=== PATIENT | male | born 1980 | race Caucasian/White ===

== ENCOUNTER 2022-08-28 15:43 | Outpatient (OUT) | payer MEDICARE, MEDICAID, SELFPAY ==
[2022-08-28 16:25] LABS: Estimated Average Glucose 126 mg/dL
== END 2022-08-28 15:44 ==
LOC: LAB 15:47
PROVIDERS: PCP Specialist; Visit Provider Specialist
DX: E11.9 Type 2 diabetes mellitus without complications (principal)
CPT/HCPCS: 36415; 83036

== ENCOUNTER 2022-11-30 08:45 | Outpatient (OUT) | payer MEDICARE, MEDICAID, SELFPAY ==
[2022-11-30 09:13] LABS: Basophils Percent Auto 0.5 % (0.2-2.0); Eosinophils Absolute Auto 0.2 10^3/uL (0.0-0.7); Eosinophils Percent Auto 2.3 % (0.9-7.0); Hematocrit 44.8 % (42.0-54.0); Hemoglobin 15.3 g/dL (14.0-18.0); Immature Granulocytes Abs Auto 0.04 10^3/uL (0.00-0.03); Immature Granulocytes Pct Auto 0.5 % (0.0-0.5); Lymphocytes Absolute Auto 1.6 10^3/uL (1.2-3.8); Lymphocytes Percent Auto 18.7 % (20.5-60.0); Mean Corpuscular HGB Conc 34.2 g/dL (29.9-35.2); Mean Corpuscular Hemoglobin 29.4 pg (25.9-34.0); Mean Corpuscular Volume 86.2 fL (80.0-94.0); Mean Platelet Volume 9.7 fL (9.5-13.5); Monocytes Absolute Auto 0.6 10^3/uL (0.3-0.8); Monocytes Percent Auto 6.8 % (1.7-12.0); Neutrophils Percent Auto 71.2 % (43.0-75.0); Platelet Count 163 10^3/uL (150-450); Red Cell Distribution Width 12.2 % (11.0-15.0); White Blood Count 8.4 10^3/uL (4.0-11.0)
[2022-11-30 10:02] LABS: Estimated Average Glucose 123 mg/dL; Glycohemoglobin A1C 5.9 % (4.5-6.2)
[2022-11-30 10:08] LABS: Anion Gap 9.3; BUN Creatinine Ratio 10.8; Calcium 9.3 mg/dL (8.5-10.1); Carbon Dioxide 29.6 mmol/L (21.0-32.0); Chloride 102 mmol/L (98-107); Chol HDL Ratio 3.6; Cholesterol 148 mg/dL (<=200); Estimated GFR (African America >60 (>=60); Estimated GFR (Non-African Ame 60 (>=60); Glucose 100 mg/dL (74-106); HDL Cholesterol 41 mg/dL (40-60); LDL Cholesterol Calculated 77.8 mg/dL; Potassium 3.9 mmol/L (3.5-5.1); Sodium 137 mmol/L (136-145); Triglycerides 146 mg/dL (<=150); VLDL CHOLESTEROL 29.2 mg/dL
== END 2022-11-30 08:46 | disposition home or self-care (01) ==
LOC: LAB 08:48
PROVIDERS: PCP Nurse Practitioner
DX: F42.2 Mixed obsessional thoughts and acts (principal); F31.12 Bipolar disorder, current episode manic without psychotic features, moderate; Z79.899 Other long term (current) drug therapy; F63.81 Intermittent explosive disorder; F90.1 Attention-deficit hyperactivity disorder, predominantly hyperactive type; F72 Severe intellectual disabilities
CPT/HCPCS: 36415; 80048; 80061; 83036; 85025

== ENCOUNTER 2023-12-28 07:46 | Outpatient (OUT) | payer MEDICARE, MEDICAID, SELFPAY ==
[2023-12-28 08:38] LABS: Basophils Percent Auto 0.3 % (0.2-2.0); Eosinophils Absolute Auto 0.2 10^3/uL (0.0-0.7); Eosinophils Percent Auto 3.9 % (0.9-7.0); Hematocrit 43.8 % (42.0-54.0); Hemoglobin 14.8 g/dL (14.0-18.0); Immature Granulocytes Abs Auto 0.02 10^3/uL (0.00-0.03); Immature Granulocytes Pct Auto 0.3 % (0.0-0.5); Lymphocytes Absolute Auto 2.3 10^3/uL (1.2-3.8); Lymphocytes Percent Auto 38.6 % (20.5-60.0); Mean Corpuscular HGB Conc 33.8 g/dL (29.9-35.2); Mean Corpuscular Hemoglobin 29.2 pg (25.9-34.0); Mean Corpuscular Volume 86.6 fL (80.0-94.0); Mean Platelet Volume 9.7 fL (9.5-13.5); Monocytes Absolute Auto 0.5 10^3/uL (0.3-0.8); Monocytes Percent Auto 8.4 % (1.7-12.0); Neutrophils Absolute Auto 2.9 10^3/uL (1.4-6.5); Neutrophils Percent Auto 48.5 % (43.0-75.0); Platelet Count 157 10^3/uL (150-450); Red Blood Count 5.06 10^6/uL (4.70-6.10)
[2023-12-28 08:59] LABS: Anion Gap 16.1; BUN Creatinine Ratio 9.8; Calcium 9.7 mg/dL (8.5-10.1); Carbon Dioxide 27.2 mmol/L (21.0-32.0); Chloride 101 mmol/L (98-107); Chol HDL Ratio 3.1; Cholesterol 146 mg/dL (<=200); Estimated GFR (African America 60 (>=60 mL/min/1.73m^2); Estimated GFR (Non-African Ame 49 (>=60 mL/min/1.73m^2); Glucose 108 mg/dL (74-106); HDL Cholesterol 47 mg/dL (40-60); LDL Cholesterol Calculated 86.6 mg/dL; Potassium 4.3 mmol/L (3.5-5.1); Sodium 140 mmol/L (136-145); Triglycerides 62 mg/dL (<=150); VLDL CHOLESTEROL 12.4 mg/dL
[2023-12-28 09:29] LABS: Estimated Average Glucose 111 mg/dL; Glycohemoglobin A1C 5.5 % (4.5-6.2)
== END 2023-12-28 07:47 | disposition home or self-care (01) ==
LOC: LAB 07:46
PROVIDERS: PCP Nurse Practitioner
DX: F42.2 Mixed obsessional thoughts and acts (principal); F90.1 Attention-deficit hyperactivity disorder, predominantly hyperactive type; F63.81 Intermittent explosive disorder; F72 Severe intellectual disabilities
CPT/HCPCS: 36415; 80048; 80061; 83036; 85025

== ENCOUNTER 2025-02-27 08:33 | Outpatient (OUT) | payer MEDICARE, MEDICAID, SELFPAY ==
--- OUTSIDE RECORDS SUMMARY | 2025-02-27 08:39 | XMS_ITS | Clinical Summary ---
Author Organization [employer] tem Address [id number] [address] [place] [address] Care Team Providers Care Investor Relations Manager Name Role Phone Kel Del Rio APRN-SYSTEM OPERATION SUPERINTENDENT Primary Care Provider + Allergies No known active allergies Medications MedicationSigDispense QuantityRefillsLast FilledStart DateEnd DateStatus clonazePAM (KlonoPIN) 0.5 mg tablet Take 1 tablet (0.5 mg total) by mouth in the morning and at bedtime.04/03/2023 Active temazepam (RESTORIL) 30 mg capsule 04/03/2023ctive venlafaxine XR (EFFEXOR XR) 75 mg 24 hr capsule 04/08/2023ctive dextromethorphan-quiNIDine (NUEDEXTA) 20-10 mg capsule Active cloNIDine (CATAPRES) 0.1 mg tablet Take 1 tablet (0.1 mg total) by mouth in the morning and at bedtime. PT takes one 0.1 mg tablet twice daily.01/07/2024ctive polyethylene glycol (GLYCOLAX) 17 gram packet MIX 1 PACKET IN 4-8 OZ OF WATER/JUICE AND TAKE BY MOUTH ONCE EVERY DAY 30 packet 4Active SENNA 8.6 mg tablet Indications:Chronic idiopathic constipationTake 1 tablet (8.6 mg total) by mouth in the morning and 1 tablet (8.6 mg total) before bedtime. Time at 8am and 8pm. 60 tablet 1105Active amphetamine-dextroamphetamine XR (ADDERALL XR) 25 mg 24 hr capsule 1 capsule (25 mg total).09/11/2023ctive acetaminophen (TYLENOL) 325 mg tablet TAKE 2 TABLETS (650MG) BY MOUTH EVERY 4 HOURS NEEDED FOR GENERAL DISCOMFORT OR TEMP GREATER NBEU162.5 *MAX 8 TABS/24HRS* 60 tablet 5Active tamsulosin (FLOMAX) 0.4 mg capsule Indications:Benign prostatic hyperplasia with urinary frequencyTAKE 1 CAPSULE BY MOUTH EVERY NIGHT AT 8PM FOR BPH 31 capsule 5Active LORazepam (ATIVAN) 2 mg tablet Indications:Phobia of dental procedureTake 1 tablet (2 mg total) by mouth See Admin Instructions. 1 tablet one hour before dental procedure. May administer additional tablet one hour later if not effective. 2 tablet 5Active trospium (SANCTURA) 20 mg tablet TAKE 1 TABLET BY MOUTH EVERY NIGHT 31 tablet 5Active Additional Information Patient not taking.Reason: Other (Stopped per Dr. Keller 01/06/2025), Reported on 01/06/2025 cholecalciferol, vitamin D3, 2,000 units capsule Indications:Vitamin D deficiencyTake 1 capsule (2,000 Units total) by mouth in the morning. 31 capsule 5Active linaCLOtide (LINZESS) 290 mcg capsule Take 1 capsule (290 mcg total) by mouth every morning before breakfast. 30 capsule 5Active memantine (NAMENDA) 10 mg tablet TAKE 1 TABLET BY MOUTH TWICE DAILY (AMNESIA)5Active OLANZapine (ZyPREXA) 15 mg tablet 5Active OLANZapine (ZyPREXA) 7.5 mg tablet 5Active magnesium hydroxide 400 mg/5 mL suspension Indications:Chronic idiopathic constipationTAKE 60 ML (4 TABLESPOONS) BY MOUTH ON DAY 2 NEEDED IF NO BOWEL MOVEMENT BY 8PM. Continue to take daily until BM. 473 mL 5Active cloNIDine (CATAPRES) 0.1 mg tablet Take 1 tablet (0.1 mg total) by mouth nightly. PT to take half of 0.1 mg tablet with one whole 0.1 mg tablet to equal 1.5 tabletsActive mirabegron (MYRBETRIQ) 50 mg tablet extended release 24 hr Take 1 tablet (50 mg total) by mouth in the morning. 30 tablet 5Active lactulose (CHRONULAC) 10 gram/15 mL solution Indications:Chronic idiopathic constipationTake 30 mL (20 g total) by mouth in the morning and 30 mL (20 g total) before bedtime. 3785 mL 5Active lisinopriL (PRINIVIL,ZESTRIL) 5 mg tablet Indications:Primary hypertensionTake 1 tablet (5 mg total) by mouth every morning. 31 tablet 5Active Active Problems ProblemNoted DateDiagnosed DateMood kihigwec32/23/6537Niegzgnn88/11/2024 Overview (01/06/2025): ==== 01/06/2025 ==== baseline constipation on medication. Joan mild though it did help. Has had slightly more accidents. Maybe some increased confusion as well. Plan: Stay on his constipation meds. Stopped the trospium. Add Myrbetriq. Return clinic midlevel provider 3 months. Urine for culture today ====07/01/24====Improvement with trospium. PVR 0. Content with current state ==== 04/08/2024 ==== enuresis continues. Culture fine PSA fine ultrasound fine. We did discuss cystoscopy [facility] bladder solution. Mac anesthesia. There some reluctance regarding that. We did discuss then anticholinergic see how do it nighttime. Return clinic with midlevel provider in 6-8 weeks. Trospium 20 mg at night. Does have baseline constipation but they have a bowel regimen. ==== 02/03/2024 ==== last 3 months. Some enuresis. Primarily nocturnal. By report has checked cultures. Did have a UTI potentially. Plan: Renal bladder ultrasound--check postvoid residual at that time Urine for culture. PSA. Returnclinic midlevel provider. Consideration for cystoscopy [facility] bladder solution. Probable mac anesthesia. Assessment & Plan (07/01/2024 1:44 PM EDT): His caregiver reports that he still has enuresis but not as often as before. He reports that he is doing well and wants to continue with the medication. 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 Dental beavde25 Overview (09/27/2022): Added automatically from request for surgery [id number] Encounters DateTypeDepartmentCare ItlnZuwktxvatmg70/04/2025Refill [facility] [address] [place] [address] Kaitlynn Nichols, [facility] Primary htgcrbhpzevg31/28/2025Orders Only [facility] [address] [place] [address] Kel Del Rio APRN-SYSTEM OPERATION SUPERINTENDENT Chronic idiopathic jimgusyqncku73/28/2025Telephone [facility] [address] [place] [address] Lyudmila Zafar, [facility] 01/18/2025Refill [facility] [address] [place] [address] [facility] Chronic idiopathic iwfunlkfjgli24/17/2025Telephone [facility] [address] [place] [phone] Cathy Mitchell, [facility] 01/08/2025Refill [facility] [address] [place] [address] Yue Monzon, [facility] Chronic idiopathic qhkfvrunsyjf21/16/2025Telephone [facility] [address] [place] [address] Lyudmila Zafar CMA 01/06/2025 1:45 PM EDTOffice Visit [facility] [address] [facility] [address] Devon Keller MD Enuresis (Primary Dx)01/04/2025 10:30 AM EDTOffice Visit [facility] [address] [place] [address] Kel Del Rio, CHAIRMAN & CHIEF EXECUTIVE OFFICER-SYSTEM OPERATION SUPERINTENDENT Chronic idiopathic yblmyhwknbxa49/13/4022Upiwtq52/30/2025Refill [facility] [address] [place] [address] Harvey Ceballos CMA from Last 3 Months Immunizations ImmunizationAdministration DatesNext DueInfluenza, Injectable, quadrivalent (PF) 01/03/2023,01/27/2020,01/30/2019,01/01/2018,01/02/2017,12/17/2015,12/04/2014 Social History Tobacco UseTypesPacks/DayYears UsedDateSmoking Tobacco: NeverSmokeless Tobacco: Never Tobacco Cessation:Counseling Given: Not Answered Alcohol UseStandard Drinks/WeekCommentsNever0 (1 standard drink = 0.6 oz pure alcohol)PHQ-2AnswerDate RecordedTotal Yciyk061/13/2025AUDIT-CAnswerDate Recorded Q1: How often do you have a drink containing alcohol?Never01/06/2025Q2: How many drinks containing alcohol do you have on a typical day when you are drinking? Patient does not drink01/06/2025Q3: How often do you have six or more drinks on one occasion?Never5ChildcareAnswerDate RecordedChildcareUnknown 12/26/2018EmploymentAnswerDate InyysgnjVgojvioxqjHlnodtu22/04/2019Hunger ScreeningAnswerDate RecordedWithin the past 12 months we worried whether our food would run out before we got money to buy more.Never True01/06/2025Within the past 12 months the food we bought just didn't last and we didn't have money to get more.Never True01/06/2025Purpose - LifeAnswerDate RecordedPurpose and direction in uqubPpzfbga91/11/2021ex and Gender InformationValueDate Recorded Sex Assigned at BirthNot on fileLegal QtfVxtm04/04/2019 11:23 AM EDTGender IdentityNot on fileSexual OrientationNot on file Last Filed Vital Signs Vital SignReadingTime TakenCommentsBlood Wwqzelcn504/7901/06/2025 2:04 PM EDT Gxhdl08630/15/2025 2:04 PM ANLLdkmbxylppx84.3 ??C (97.4 ??F)01/04/2025 10:45 AM EDTRespiratory Amxd2027 10:45 AM EDTOxygen Jhuhqlydrl63%01/04/2025 10:45 AM EDTInhaled Oxygen Concentration--Lljybl06.2 kg (201 lb)01/06/2025 2:04 PM EDT Acnclt640.5 cm (6' 3 )01/06/2025 2:04 PM EDTBody Mass Index25.121 2:04 PM EDT Plan of Treatment DateTypeDepartmentCare Team (Latest Contact Info)Rgskczkrnhl22/26/2026 9:40 AM ESTOffice Visit [facility] [address] [place] [address] Kel Del Rio, CHAIRMAN & CHIEF EXECUTIVE OFFICER-SYSTEM OPERATION SUPERINTENDENT [address] [place] [address] 04/21/2025 10:30 AM ESTOffice Visit [facility] [address] [place] [address] [address] [facility] [place] [address] Brenda Cantor I, PA [address] [place], [place] [id number] Health MaintenanceDue DateLast DoneCommentsDTaP,Tdap and Td Vaccines (1 - Tdap) 1997COVID-19 Vaccine (3 - season)502/10/2020, 04/04/2020 Influenza Dkasmqg52/02/2023, 01/27/2020, 01/30/2019, Additional history existsAdult BMI Follow Up Plan/Depression Screening /dult BMI Qecovmkuv77/Tobacco Screening Medical Devices Not on file Insurance Care Teams Team MemberRelationshipSpecialtyStart DateEnd Date Kel Del Rio, CHAIRMAN & CHIEF EXECUTIVE OFFICER-SYSTEM OPERATION SUPERINTENDENT [address] [place] [address] PCP - GeneralInternal Medicine10/13/24
--- OUTSIDE RECORDS SUMMARY | 2025-02-27 08:39 | XMS_ITS | Clinical Summary ---
Author Organization [facility] Address [address] [place] [address] Care Team Providers Care Electrical Repairer Name Role Phone [place] Valentine FANS CLERK Unavailable [phone] Unallocated, [facility] Provider MD Primary Care Provi ly Lyudmila Jordan Unavailable [phone] Allergies No known active allergies Medications MedicationSigDispense QuantityRefillsLast FilledStart DateEnd DateStatus naltrexone (Depade) 50 MG tablet Take 50 mg by mouth DailyActive venlafaxine (Effexor) 75 MG tablet Take 75 mg by mouth every 12 (twelve) hoursActive senna-docusate (Rowan-Colace) 8.6-50 MG tablet 1 tablet 1 (one) time each day at the same time.Active cloNIDine (Catapres) 0.1 MG tablet 0.1 mg 1 (one) time each day at the same time.Active temazepam (Restoril) 15 MG capsule Take 30 mg by mouth 1 (one) time each day at the same timeActive Polyethylene Glycol powder Polyethylene Glycol -Active temazepam (Restoril) 30 MG capsule Take 30 mg by mouth 1 (one) time each day at the same time.Active mupirocin (Bactroban) 2 % ointment every 8 (eight) hoursActive magnesium hydroxide (Milk of Magnesia) 400 MG/5ML suspension every 6 (six) hours.Active cloZAPine (Clozaril) 50 MG tablet Take 50 mg by mouth DailyActive linaCLOtide (Linzess) 290 MCG capsule 290 mcg 1 (one) time each day at the same time.Active memantine (Namenda) 5 MG tablet Take 5 mg by mouth 1 (one) time each day at the same timeActive dextroamphetamine ER (Dexedrine Spansule) 10 MG 24 hr capsule 10 mgActive clonazePAM (KlonoPIN) 0.5 MG disintegrating tablet Take 0.5 mg by mouth 1 (one) time each day at the same time.Active lisinopril 5 MG tablet Take 5 mg by mouth DailyActive acetaminophen (Tylenol) 325 MG tablet Take 325 mg by mouth every 4 (four) hours if needed for mild painActive amoxicillin (Amoxil) 500 MG capsule Take by mouthActive amphetamine-dextroamphetamine XR (Adderall XR) 25 MG 24 hr capsule 25 mg09/11/2023ctive cholecalciferol (Vitamin D-3) 50 MCG (1999) capsule Take 1 capsule by mouth in the morning.11/13/2023ctive tamsulosin (Flomax) 0.4 MG 24 hr capsule Take 0.4 mg by mouth at vlbaxbd1810/10/2023ctive LORazepam (Ativan) 2 MG tablet Take 2 mg by mouth See administration dfwkdyiopiyi55/19/2024ctive Dextromethorphan-quiNIDine (Nuedexta) 20-10 MG capsule Indications:Memory lossTake 1 capsule BID 62 capsule 5Active memantine (Namenda) 10 MG tablet Indications:Memory lossTAKE 1 TABLET BY MOUTH TWICE DAILY (AMNESIA) 60 tablet 5Active OLANZapine (ZyPREXA) 15 MG tablet 5Active mirabegron ER (Myrbetriq) 50 MG 24 hr tablet Take 50 mg by mouth in the morning.5Active OLANZapine (ZyPREXA) 5 MG tablet Take 5 mg by mouth 1 (one) time each day at the same time02/03/2025Discontinued trospium (Sanctura) 20 MG tablet Take 20 mg by mouth in the morning and 20 mg before bedtime.02/03/2025 Discontinued Active Problems ProblemNoted DateDiagnosed DatePseudobulbar jacaom3511/17/2023Mood disorder 11/17/20234329Zniuvzucfpxqw17/25/2024DHD (attention deficit hyperactivity disorder) 11/17/2023Memory loss11/17/2023 Encounters DateTypeDepartmentCare VsnrUiwwkcmmndx11/12/2025 1:00 PM ESTProcedure Visit [facility] [address] [facility] [address] Lai Dyer, NARENDRA Dermatophytosis of nail (Primary Dx); Dystrophic nail; Pain around toenail, right foot; Pain around toenail, left foot02/03/2025bstract General acute hospital Podiatry [address] [facility] [address] Lai Dyer DPM 02/03/2025amboo flowsheet General acute hospital Podiatry [address] [address] Lai Dyer DPM 02/03/2025Travelfrom Last 3 Months Immunizations ImmunizationAdministration DatesNext DueInfluenza, Idfaablyqna00/10/2018 Influenza, injectable, quadrivalent, preservative free01/03/2023,01/27/2020, 01/30/2019,01/01/2018,01/02/2017,12/17/2015,12/04/2014[facility] kpaxsmpmj-E8G0-03, preservative-free05/12/2009 Family History Medical HistoryRelationNameCommentsCancerMotherRelationNameStatusCommentsFather AliveMotherAlive Social History Tobacco UseTypesPacks/DayYears UsedDateSmoking Tobacco: NeverSmokeless Tobacco: Never Tobacco Cessation:Counseling Given: Not Answered Alcohol UseStandard Drinks/WeekCommentsNever0 (1 standard drink = 0.6 oz pure alcohol)Caffeine intake: noneSex and Gender InformationValueDate RecordedSex Assigned at BirthNot on fileLegal NvyFtrq9406/06/2022 7:34 PM EDTGender Identity Not on fileSexual OrientationNot on file Last Filed Vital Signs Vital SignReadingTime TakenCommentsBlood Uxvgspqb351/90006/02/2024 10:45 AM EDT Uslqr22861/11/2025 10:45 AM EDTTemperature--Respiratory Rate--Oxygen Saturation 97%06/02/2024 10:45 AM EDTInhaled Oxygen Concentration--Utbasn83.6 kg (202 lb) 02/03/2025 1:07 PM XZJBimncj839 cm (6' 4 )02/03/2025 1:07 PM ESTBody Mass Index 24.5902/03/2025 1:07 PM EST Plan of Treatment DateTypeDepartmentCare Team (Latest Contact Info)Ahdklkyuhly04/12/2026 10:15 AM EDTProcedure Visit [facility] [address] [place] [address] Lai Dyer, DPM [address] [place], [place] [address] Health MaintenanceDue DateLast DoneCommentsCT Mhrcknezovok1978Colonoscopy 1978FIT1978FOBT1978 4800Placrvmtqhykq1978COVID-19 Vaccine ( season)/10/2020, 04/04/2020Influenza Vaccine (#1) /02/2023, 01/27/2020, 01/30/2019, Additional history existsMedicare Annual Wellness (AWV)601/, 4Colorectal Cancer Screening 05/18/2027FIT-DNAPneumococcal Vaccine: Pediatrics (0 to 5 Years) and At-Risk Patients (6 to 64 Years)Aged OutNo longer eligible based on patient's age to complete this topic Insurance * Guarantor: Edi Tang TypeRelation to PatientDate of BirthPhone Billing AddressPersonal/ZdqvwoNxgt[address] [address] Care Teams Team MemberRelationshipSpecialtyStart DateEnd Date Unallocated, [facility] Provider, [address] [place] [address] PCP - GeneralFamily Okahbrio95/14/24 Albania Valentine CRNP [address], [place] [address] Referring PhysicianNurse Tstllobglqsp62/3/23 Lyudmila Jordan DO [address] [place] [address] Referring SfpznqatxWnvevrtaf57/23/24
--- OUTSIDE RECORDS SUMMARY | 2025-02-27 08:39 | XMS_ITS | Clinical Summary ---
Author Organization [facility] Address [address] [facility] [place] [address] Care Team Providers Care Plant Taxonomist Name Role Phone Yas Mcgraw SNACK STEWARDESS-FLAME CUTTING MACHINE OPERATOR HELPER Unavailable [phone] Source Comments The following information is NOT included in Care Everywhere downloads:Psychiatric notes, ECG results, Cardiac Rehab notes, Pulmonary Function notes, data from [employer] (includes but not limited toPregnancy data,audiograms, eye exams, pre-surgical evaluation notes, well-child exam data).[facility] Allergies No known active allergies Medications MedicationSigDispense QuantityRefillsLast FilledStart DateEnd DateStatus clonazePAM (KlonoPIN) 0.5 MG tablet Take 0.5 mg by mouth 2 times daily.01/27/2021ctive cloNIDine (CATAPRES) 0.1 MG tablet Take 0.1 mg by mouth 2 times daily. 1.5 tablets at lleodkk7701/27/2021ctive Nuedexta 20-10 MG CAPS capsule Take 1 Capsule by mouth 2 times daily.01/27/2021ctive Linzess 290 MCG CAPS capsule Take 290 mcg by mouth daily.01/20/2021ctive lisinopril (ZESTRIL) 5 MG tablet Take 5 mg by mouth daily.01/27/2021ctive Namenda XR 28 MG CP24 daily.01/27/2021ctive OLANZapine (ZyPREXA) 7.5 MG tablet Take 7.5 mg by mouth 2 times daily.01/27/2021ctive temazepam (RESTORIL) 30 MG capsule Take 30 mg by mouth at bedtime.01/27/2021ctive venlafaxine (EFFEXOR XR) 37.5 MG ER capsule Take 37.5 mg by mouth daily.01/27/2021ctive Active Problems ProblemNoted DateDiagnosed DateDental vajjas8412/22/2020 Overview (12/22/2020): Added automatically from request for surgery [id number] TachycardiaMixed obsessional thoughts and actsIntermittent explosive disorder Intellectual disabilityHTN (hypertension)Diabetes mellitusConduct disorderADHD Obesity Immunizations ImmunizationAdministration DatesNext DueInfluenza, injectable, quadrivalent, preservative free (BSQ=329)01/03/2023,01/27/2020,01/30/2019,01/01/2018, 01/02/2017,12/17/2015,12/04/2014Moderna Monovalent (12+ yrs) COVID-19 vaccine, mRNA, spike protein, LNP, PF, 100 mcg/0.5 mL (OEM=952)05/02/2020,04/04/2020 Social History Tobacco UseTypesPacks/DayYears UsedDateSmoking Tobacco: NeverSmokeless Tobacco: NeverAlcohol UseStandard Drinks/WeekCommentsNever0 (1 standard drink = 0.6 oz pure alcohol)Sexually ActiveBirth ControlPartnersCommentsNeverSubstance UseTypes Use/WeekCommentsNeverSex and Gender InformationValueDate RecordedSex Assigned at BirthNot on fileLegal VmcCuuz1204/15/2019 3:50 PM ESTGender IdentityNot on file Sexual OrientationNot on file Last Filed Vital Signs Vital SignReadingTime TakenCommentsBlood Wtajmixq072/7702/13/2021 9:45 AM EST Zvicr06138/22/2021 10:00 AM GZRXznszjzebgx94.1 ??C (96.9 ??F)02/13/2021 9:11 AM ESTRespiratory Rvuj092002/13/2021 10:00 AM ESTOxygen Advyexirvh32%02/13/2021 10:00 AM ESTInhaled Oxygen Concentration--Vngqjx121.2 kg (223 lb)02/13/2021 7:08 AM PTNRekvup320 cm (6' 4 )02/08/2021 1:19 PM ESTBody Mass Index27.14104/10/2020 1:19 PM EST Plan of Treatment Health MaintenanceDue DateLast DoneCommentsBasic Metabolic Panel1978 Vhbsekaubix1978HIV Test1993Hepatitis C Eikskzml57/08/1996Tdap Xcqdzfp6803/01/1996Hepatitis A (HAV) Vaccine (optional start 19+ years)1997 Hepatitis B (HBV) Vaccine (1 of 3 - 19+ 3-dose series)1997Cholesterol 2013nnual Wellness Visit (G0438)02/22/2018CRC Qyzuinjtw76/08/2023 Cologuard (Stool DNA)2023FIT2023OVID-19 Vaccine ( - 2024- season)502/10/2020, 04/04/2020Influenza Vaccine (#1)2024 01/03/2023, 01/27/2020, 01/30/2019, Additional history existsShingles (RZV) Vaccine (1 of 2)2028Pneumococcal Vaccine(s)Aged OutNo longer eligible based on patient's age to complete this topic Insurance [address] [place] [address] Care Teams Team MemberRelationshipSpecialtyStart DateEnd Date Yas Mcgraw, MAINOR-ADILSON [address] [place] [address] [place] [address] KPULuwtdvgylpukpn31/3/21
--- OUTSIDE RECORDS SUMMARY | 2025-02-27 08:41 | XMS_ITS | CCD ---
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 Role Phone AL MASHNI, BLAZE Referring Unavailable AL MASHNI, BLAZE Attending Unavailable AL MASHNI, BLAZE Admitting Unavailable PROVIDER, UNKNOWN Attending Unavailable PROVIDER, UNKNOWN Admitting Unavailable AL MASHNI, BLAZE Referring Unavailable PROVIDER, UNKNOWN Attending Unavailable PROVIDER, UNKNOWN Admitting Unavailable AL MASHNI, BLAZE Referring Unavailable PROVIDER, UNKNOWN Attending Unavailable PROVIDER, UNKNOWN Admitting Unavailable PROVIDER, UNKNOWN Admitting Unavailable PROVIDER, UNKNOWN Attending Unavailable Gerson Estrada Unavailable GELA ISAAC Primary Care Physician GELA ISAAC Attending Unavailable GELA ISAAC Admitting Unavailable ISAACGELA GONZALEZ Attending Unavailable MD Aiden Erickson. Attending Unavailable ISAACGELA Attending Unavailable ISAAC ., DR GELA Robbins Primary Care Unavailable ISAAC ., DR GELA Robbins Admitting Unavailable ISAAC ., DR GELA Robbins Attending Unavailable ISAAC ., DR EGLA Robbins Consulting Unavailable ISAAC ., DR GELA Robbins Primary Care Unavailable ISAAC ., DR GELA Robbins Admitting Unavailable ISAAC ., DR GELA Robbins Attending Unavailable ISAAC ., DR GELA Robbins Consulting Unavailable MISC, DR RIOS Attending Unavailable MISC, DR RIOS Consulting Unavailable MISC, DR RIOS Admitting Unavailable REQUEST, DR GUADARRAMA LISTED Primary Care Unavaila ble MAINOR Benavides Attending Provider [phone] NO FAMILY, PHYSICIAN Primary Care Unavailable Lena Benavides Attending Unavailable Lena Benavides Admitting Unavailable RUBEN VALENTINE Referring Unavailable RUBEN VALENTINE Primary Care Unavailable RUBEN VALENTINE Referring Unavailable RUBEN VALENTINE Primary Care Unavailable Ruben Harper Unavailable Unallocated , Noms Provider Primary Care Provi ly Walter Jordan DO Unavailable Serge CAR SHAKEOUT OPERATOR-REFRIGERATOR ASSEMBLERRuben Primary Care Provid er Ruben Harper Unavailable Valentine CAR SHAKEOUT OPERATOR-REFRIGERATOR ASSEMBLER, Ruben Rashida Primary Care Provid er JONATHAN KELLER. Attending Unavailable JONATHAN KELLER Referring Unavailable RUBEN VALETNINE Primary Care Unavailable JONATHAN KELLER. Referring Unavailable VALENTINE, RUBEN Rashida Primary Care Unavailable VALENTINE, RUBEN J Primary Care Unavailable SELINA PACK Attending Unavailable Valentine CAR SHAKEOUT OPERATOR-REFRIGERATOR ASSEMBLER, Ruben Field Primary Care Provid er WALTER JORDAN Attending Unavailable ANTIONE DYER Attending Unavailable VICTORINAMOCristo, ALICJA Attending Unavailable VICTORINAMOALICJA Lemons Referring Unavailable ANTIONE DYER Attending Unavailable MANISHA, ANTIONE Portillo Attending Unavailable CRISTHIAN, ALICJA Attending Unavailable ALICJA MORROW Referring Unavailable Krotzer CAR SHAKEOUT OPERATOR-REFRIGERATOR ASSEMBLER, Maria Teresa Jessica Primary Care Provider Walter Jordan DO Attending Provider Serge DIAMOND POWDER TECHNICIAN-CRuben Primary Care Provider RUBEN VALENTINE Attending Unavailable HARSH VALENTINEERIE J Referring Unavailable VALENTINE, RUBEN J Primary Care Unavailable JONATHAN KELLER Attending Unavailable RUBEN VALENTINE Referring Unavailable VALENTINEHARSH MENDOSAERIE Rashida Primary Care Unavailable JONATHAN KELLER Attending Unavailable VALENTINEHARSH MENDOSAERIE Rashida Referring Unavailable VALENTINEHARSHRUBEN J Primary Care Unavailable VALENTINEHARSH MENDOSAERIE J Attending Unavailable VALENTINE, RUBEN J Referring Unavailable VALENTINE, RUBEN J Primary Care Unavailable LOGAN CANTOR I Attending Unavailable VALENTINEHARSH MENDOSAERIE J Referring Unavailable VALENTINE, RUBEN J Primary Care Unavailable KROTZER, MARIA TERESA D Attending Unavailable VALENTINEHARSHRUBEN J Referring Unavailable KROTZER, MARIA TERESA D Primary Care Unavailable KROTZER, MARIA TERESA D Attending Unavailable KROTZER, MARIA TERESA D Referring Unavailable KROTZER, MARIA TERESA D Primary Care Unavailable JONATHAN KELLER Attending Unavailable VALENTINERUBEN Referring Unavailable KROTZER, MARIA TERESA D Primary Care Unavailable Allergies Allergy ClassificationReported Allergen(s)Allergy TypeDate of OnsetReaction(s) Facility (1 source)No Known Medication Allergies; Translations: [No Known Medication Allergies]Propensity to adverse reactions (disorder)[facility] Repository Medications Current Medications MedicationDrug Class(es)DatesSig (Normalized)Sig (Original)acetaminophen 325 mg oral tablet (20 sources)Start: 36-37-2500oenf 1 capsule by mouth every six hours as needed Acetaminophen 325 mg capsule Active 325 MG PO Every 6 hours as needed September 11, 2023 12:00am Complies with drug therapyStart: 08-07-2022 End: 74-90-2004attebtdwgpvnb (TYLENOL) 325 mg tablet TAKE 2 TABLETS (650MG) BY MOUTH EVERY 4 HOURS NEEDED FOR GENERAL DISCOMFORT OR TEMP GREATER THAN 100.5 *MAX 8 TABS/24HRS* 60 tablet 11 05/14/2024 ActiveStart: 15-45-9096bpri 2 tablets by mouth every six hours as needed for painAcetaminophen 325 MG 2 tablets as needed for pain, discomfort or fever Orally every 6 hrs Mar, Activetake 1 tablet by mouth every four hours as needed for painacetaminophen (Tylenol) 325 MG tablet Take 325 mg by mouth every 4 (four) hours if needed for mild pain Activeamantadine hydrochloride 100 mg oral capsule (8 sources)Influenza A M2 Protein Inhibitortake 1 capsule by mouth every twelve hoursamantadine (Symmetrel) 100 MG capsule 100 mg every 12 (twelve) hours Active amoxicillin 500 mg oral capsule (20 sources)Penicillin-class AntibacterialStart: 09-01-2024 End: 03-22-8393dmji 4 capsules by mouth onceamoxicillin (AMOXIL) 500 mg capsule Indications: Need for antibiotic prophylaxis for dental procedure Take 4 capsules (2,000 mg total) by mouth once for 1 dose. Administer one hour before dental procedure. 4 capsule 09/01/2024 09/01/2024 ActiveStart: 01-09-2024 End: 08-92-8789jzjd 4 capsules by mouth once, then take 1 capsule by mouth every houramoxicillin (AMOXIL) 500 mg capsule Indications: Need for antibiotic prophylaxis for dental procedure Take 4 capsules (2,000 mg total) by mouth once for 1 dose. Administer one hour prior to dental procedure 4 capsule 01/09/2024 01/09/2024 ActiveStart: 07-12-2023 End: 25-40-7785aznfugtnriy (AMOXIL) 500 mg capsule Only when he is having a dental procedure. 07/12/2023 09/01/2024 Discontinued (Reorder)24 hr amphetamine aspartate 6.25 mg / amphetamine sulfate 6.25 mg / dextroamphetamine saccharate 6.25 mg / dextroamphetamine sulfate 6.25 mg extended release oral capsule (20 sources)Central Nervous System StimulantStart: 88-14-8833quzyrvaocrs- dextroamphetamine XR (ADDERALL XR) 25 mg 24 hr capsule 1 capsule (25 mg total). 09/11/2023 ActiveStart: 84-52-1190reme 1 capsule by mouth once daily, then take 1 capsule by mouth every twenty-four hoursDextroamphetamine-Amphetamine (Adderall Xr) 25 mg capsule,extended release 24hr Active 25 MG PO Daily September 11, 2023 12:00am Complies with drug therapyStart: 08-07-2022 End: 34-69-1168sqxxaflfbjzwhskpv-amphetamine (AdderalL) 20 mg tablet Take 1 tablet (20 mg total) by mouth. 08/07/2022 Active End: 33-46-1432horwgmqtkrwkpjoto-amphetamine (AdderalL) 5 mg tablet 5 tablets (25 mg total). 04/16/2024 Discontinued (Duplicate Listing)cephalexin 500 mg oral capsule (4 sources)Cephalosporin AntibacterialStart: 09-11-2023 End: 08-07-0561vmyh 1 capsule by mouth in the morning, then take 1 capsule by mouth at bedtimeCEPHalexin (KEFLEX) 500 mg capsule Indications: Acute cystitis without hematuria Take 1 capsule (500 mg total) by mouth in the morning and 1 capsule (500 mg total) before bedtime. Do all this for 7 days. 14 capsule 10/10/2023 10/17/2023 Activecholecalciferol 0.05 mg oral capsule (20 sources)Vitamin DStart: 48-18-2562ktzn 1 capsule by mouth once in the morningcholecalciferol, vitamin D3, 2,000 units capsule Indications: Vitamin D deficiency Take 1 capsule (2,000 Units total) by mouth in the morning. 31 capsule 5 11/25/2024 ActiveStart: 11-13-2023 End: 55-50-5262toti 1 capsule by mouth once daily in the morningcholecalciferol, vitamin D3, 2,000 units capsule Indications: Vitamin D deficiency take 1 capsule by mouth every morning 31 capsule 11 11/13/2023 11/25/2024 Discontinued (Reorder)Start: 02-90-6109heal 1 capsule by mouth once dailyCholecalciferol (Vitamin D3) 50 mcg (2,000 unit) capsule Active 50 MCG PO Daily September 11, 2023 12:00am Complies with drug therapyStart: 12-24-2022 End: 41-54-7447bzkq 1 capsule by mouth once in the morningcholecalciferol, vitamin D3, 2,000 units capsule Indications: Vitamin D deficiency Take 1 capsule (2,000 Units total) by mouth in the morning. 30 each 11 12/24/2022 11/13/2023 Discontinued End: 23-90-5558oqqgdotsktztzja, vitamin D3, (VITAMIN D3) 2,000 units tablet Vitamin D3 0 04/11/2023 Discontinued (Duplicate Listing)clonazePAM 0.5 mg oral tablet (20 sources)BenzodiazepineStart: 52-72-5002bkxn 1 tablet by mouth at bedtime clonazePAM (KlonoPIN) 0.5 mg tablet Take 1 tablet (0.5 mg total) by mouth in the morning and at bedtime. 04/03/2023 ActiveStart: 04-03-2023 End: 68-69-9309cvhh 1 tablet by mouth once dailyClonazepam 0.5 mg tablet Discontinued 0.5 MG PO Daily September 11, 2023 12:00am December 14, 2024 1 0:59amStart: 98-04-7333hbcl 1 tablet by mouth twice dailyClonazePAM 0.5 mg Tab 0.5 mg = 1 tab(s), Oral, BID, Refills(s) 0 Start Date: 08/07/22 Status: Ordered take 1 tablet by mouth once dailyclonazePAM (KlonoPIN) 0.5 MG disintegrating tablet Take 0.5 mg by mouth 1 (one) time each day at the same time. Active clonazePAM ActivecloNIDine hydrochloride 0.1 mg oral tablet (20 sources)Central alpha-2 Adrenergic AgonistStart: 40-23-2624glhx 0.15 mg by mouth once daily at bedtimeClonidine Hcl 0.1 mg tablet Active 0.15 MG PO Daily at bedtime December 14, 2024 10:58am Complies with drug therapyStart: 09-11-2023 End: 61-07-8827nwpt 1 tablet by mouth at bedtime, then take 1 tablet by mouth twice dailycloNIDine (CATAPRES) 0.1 mg tablet Take 1 tablet (0.1 mg total) by mouth in the morning and at bedtime. PT takes one 0.1 mg tablet twice daily. 01/07/2024 ActiveStart: 09-11-2023 End: 90-26-1022unvQNHiym (CATAPRES) 0.1 mg tablet 01/07/2024 ActiveStart: 92-65-2340ujgj 1 tablet by mouth twice daily, then take 1.5 tablets by mouth at bedtimecloNIDine 0.1 mg tab See Instructions, Take one orally twice a day and 1.5 at bedtime, Refills(s) 0Start Date: 08/07/22 Status: OrderedcloNIDine (CATAPRES) 0.1 mg tablet Take 1 tablet (0.1 mg total) by mouth nightly. PT to take half of 0.1 mg tablet with one whole 0.1 mg tablet to equal 1.5 tablets ActivecloZAPine 50 mg oral tablet (20 sources)Atypical Antipsychotic End: 82-04-2624whubibgpc (CLOZARIL) 50 MG tablet 01/04/2025 Discontinued (Discontinued by another clinician)Dextroamp-amphet ER (2 sources)Dextroamp-amphet ER Activedextroamphetamine sulfate 10 mg extended release oral capsule (13 sources)Central Nervous System Stimulantdextroamphetamine ER (Dexedrine Spansule) 10 MG 24 hr capsule 10 mg Active End: 10-48-6890xzqtwgfveksybufxr sulfate (DEXEDRINE SPANSULE) 10 mg 24 hr capsule as directed Orally 0 04/11/2023 Discontinued (Therapy completed) dextromethorphan hydrobromide 20 mg / quiNIDine sulfate 10 mg oral capsule (20 sources)Antiarrhythmic, Uncompetitive P-piqhak-M-aspartate Receptor Antagonist, Cytochrome P450 2D6 Inhibitor, Sigma-1 AgonistStart: 08-06-2024 Dextromethorphan-quiNIDine (Nuedexta) 20-10 MG capsule Indications: Memory loss Take 1 capsule BID 62 capsule 2 08/06/2024 ActiveStart: 30-32-3932sweb 1 capsule by mouth twice dailyDextromethorphan-quiNIDine (Nuedexta) 20-10 MG capsule Indications: Memory loss TAKE 1 CAPSULE BY MOUTH TWICE DAILY (AMNESIA) 62 capsule 2 05/25/2024 ActiveStart: 78-76-4660fmjg 1 capsule by mouth in the morningDextromethorphan-quiNIDine (Nuedexta) 20-10 MG capsule Indications: Memory loss Take 1 capsule by mouth in the morning and 1 capsule before bedtime. 62 capsule 3 01/08/2024 ActiveStart: 09-11-2023 End: 19-40-1319bxar 1 capsule by mouth every twelve hoursDextromethorphan- Quinidine (Nuedexta) 20-10 mg capsule Active 1 CAP PO Every 12 hours 60 December 08, 2024 4:12pm Complies with drug therapyStart: 55-36-6479ctjs 1 capsule by mouth twice dailyDextromethorphan-quiNIDine (Nuedexta) 20-10 MG capsule Indications: Memory loss TAKE 1 CAPSULE BY MOUTH TWICE DAILY 62 capsule 3 09/03/2023 ActiveStart: 09-17-2022 End: 61-49-1749KVCQUXOE 20-10 mg capsuleNuedexta Activedocusate sodium 50 mg / sennosides, residential 8.6 mg oral tablet (13 sources)senna-docusate (Rowan-Colace) 8.6-50 MG tablet 1 tablet 1 (one) time each day at the same time. Active End: 18-48-4168oyokysundf-docusate sodium (SENNA-TIME S) 8.6-50 mg Senna-Time 0 04/11/2023 Discontinued (DuplicateListing)Hydrocortisone (1 source)CorticosteroidStart: 41-96-0762spnjetakseeeky Top 2.5% Crm 1 irene, Topical, TID, 30 gram, Refill(s) 0, [id number], 193, cm, 08/06/22 17:15:00 EDT, Height/Length Dosing, 100.5, kg, 08/06/22 17:15:00 EDT, Weight Dosing Start Date: 08/06/22 Status: Orderedlactulose 667 mg/ml oral solution (11 sources)Osmotic LaxativeStart: 01-04-2025 End: 87-73-9664xgrv 20 g by mouth at bedtimelactulose (CHRONULAC) 10 gram/15 mL solution Indications: Chronic idiopathic constipation Take 30 mL (20 g total) by mouth in the morning and 30 mL (20 g total) before bedtime. 3785 mL 2 01/19/2025 Activelinaclotide 0.29 mg oral capsule (20 sources)Guanylate Cyclase-C AgonistStart: 02-22-2023 End: 01-60-9268rgbd 1 capsule by mouth once daily before breakfastlinaCLOtide (LINZESS) 290 mcg capsule Take 1 capsule (290 mcg total) by mouth every morning before breakfast. 30 capsule 11 12/23/2024 ActiveStart: 09-63-1981tvwz 1 capsule by mouth once dailyLinzess 290 mcg oral capsule 290 mcg = 1 cap(s), Oral, Daily, Refills(s) 0 Start Date: 08/07/22 Status: OrderedStart: 60-90-7778shzw 1 capsule by mouth every twenty-four hoursLinzess 290 MCG 1 capsule Orally Once a day for 90 days Aug, Activelisinopril 5 mg oral tablet (20 sources)Angiotensin Converting Enzyme InhibitorStart: 09-11-2023 End: 96-75-7338lgjy 1 tablet by mouth once dailylisinopriL (PRINIVIL,ZESTRIL) 5 mg tablet Indications: Primary hypertension TAKE 1 TABLET BY MOUTH ONCE EVERY DAY 31 tablet 11 02/12/2024 ActiveStart: 08-07-2022 End: 51-73-8453wvpg 1 tablet by mouth once dailylisinopriL (PRINIVIL,ZESTRIL) 5 mg tablet Indications: Primary hypertension TAKE 1 TABLET BY MOUTH ONCE EVERY DAY 30 tablet 11 01/29/2023 ActiveLORazepam 2 mg oral tablet (20 sources)BenzodiazepineStart: 01-03-2023 End: 47-11-1798LWGdztkbd (ATIVAN) 2 mg tablet Indications: Phobia of dental procedure Take 1 tablet (2 mg total) by mouth See Admin Instructions. 1 tablet one hour before dental procedure. May administer additionaltablet one hour later if not effective. 2 tablet 09/01/2024 Activemagnesium hydroxide 80 mg/ml oral suspension (20 sources)Start: 03-31-2024 End: 88-11-4448gwauflggk hydroxide 400 mg/5 mL suspension Indications: Chronic idiopathic constipation TAKE 60 ML (4 TABLESPOONS) BY MOUTH ON DAY 2 NEEDED IF NO BOWEL MOVEMENT BY 8PM. Continue to take daily until BM. 473 mL 11 01/04/2025 ActiveStart: 47-33-2349auoj 1 mL by mouth once dailyMagnesium Hydroxide (Milk Of Magnesia) 400 mg/5 mL suspension Active 5 ML PO Daily September 11, 2023 12:00amStart: 02-13-2023 End: 08-68-7332afkp 1 mL by mouth once daily as neededMagnesium Hydroxide (Milk Of Magnesia) 400 mg/5 mL suspension Active 5 ML PO Daily as needed September 11, 2023 12:00am Complies with drug therapymagnesium hydroxide (Milk of Magnesia) 400 MG/5ML suspension every 6 (six) hours. Active End: 44-10-6645eamaowjvz hydroxide (MILK OF MAGNESIA) 400 mg/5 mL suspension Magnesium Hydroxide 0 04/11/2023 DiscontinuedMilk of Magnesia 1200 MG/15ML 5 ml as needed Orally prn PRN Activememantine hydrochloride 10 mg oral tablet (20 sources)Z-azfmyj-K-aspartate Receptor AntagonistStart: 08-13-2024 End: 17-62-9634cnvz 1 tablet by mouth twice dailymemantine (NAMENDA) 10 mg tablet TAKE 1 TABLET BY MOUTH TWICE DAILY (AMNESIA) 08/13/2024 ActiveStart: 16-08-2057dyem 1 tablet by mouth twice dailymemantine (Namenda) 10 MG tablet Indications: Memory loss TAKE 1 TABLET BY MOUTH TWICE DAILY (AMNESIA) 62 tablet 2 05/25/2024 ActiveStart: 27-00-6955aknb 1 tablet by mouth in the morning memantine (Namenda) 10 MG tablet Indications: Memory loss Take 1 tablet (10 mg) by mouth in the morning and 1 tablet (10 mg) before bedtime. 62 tablet 3 01/08/2024 ActiveStart: 09-11-2023 End: 20-33-0572gjdr 1 tablet by mouth once daily in the eveningMemantine 10 mg tablet Discontinued 10 MG PO Every evening September 11, 2023 12:00am October 21, 2024 3:40pmStart: 87-32-2582wsxg 1 tablet by mouth twice dailymemantine (Namenda) 10 MG tablet Indications: Memory loss TAKE 1 TABLET BY MOUTH TWICE DAILY 62 tablet 3 09/03/2023 ActiveStart: 24-48-4001hpbb 1 tablet by mouth twice dailymemantine 10 mg Tab 10 mg = 1 tab(s), Oral, BID, Refills(s) 0 Start Date: 08/07/22 Status: Ordered End: 77-14-0299vdxpndqgj (NAMENDA) 5 mg tablet 01/04/2025 Discontinued (Duplicate Listing)take 1 tablet by mouth every twelve hoursMemantine HCl 10 MG 1 tablet Orally bid Zyelpn66 hr mirabegron 50 mg extended release oral tablet (8 sources)beta3-Adrenergic AgonistStart: 01-08-2025 End: 26-41-8231gird 1 tablet by mouth every twenty-four hours in the morning mirabegron (MYRBETRIQ) 50 mg tablet extended release 24 hr Take 1 tablet (50 mg total) by mouth in the morning. 30 tablet 5 01/08/2025 Activemupirocin 0.02 mg/mg topical ointment (12 sources)RNA Synthetase Inhibitor Antibacterialmupirocin (Bactroban) 2 % ointment every 8 (eight) hours Activenaltrexone hydrochloride 50 mg oral tablet (12 sources)Opioid Antagonisttake 1 tablet by mouth once dailynaltrexone (Depade) 50 MG tablet Take 50 mg by mouth Daily Activenitrofurantoin, macrocrystals 25 mg / nitrofurantoin, monohydrate 75 mg oral capsule (1 source)Nitrofuran AntibacterialStart: 05-20-2023 End: 16-90-7669obtw 1 capsule by mouth in the morning, then take 1 capsule by mouth at bedtimenitrofurantoin, macrocrystal-monohydrate, (MACROBID) 100 mg capsule Indications: Acute cystitis without hematuria Take 1 capsule (100 mg total) by mouth in the morning and 1 capsule (100 mg total) before bedtime. Do all this for 7 days. 14 capsule 0 05/20/2023 05/27/2023 ActiveOLANZapine 7.5 mg oral tablet (20 sources)Atypical AntipsychoticStart: 89-30-0645SFSLJszgmj (ZyPREXA) 7.5 mg tablet 12/19/2024 ActiveStart: 53-60-0891URWAYyhuub (ZyPREXA) 15 mg tablet 09/11/2024 ActiveStart: 01-07-2024 End: 52-78-7612PQAPUucnls (ZyPREXA) 10 mg tablet 1.5 tablets (15 mg total). 01/07/2024 01/04/2025 Discontinued (Duplicate order)Start: 95-51-2898KPXZSqduuv (ZyPREXA) 10 mg tablet 01/07/2024 ActiveStart: 04-08-2023 End: 14-02-9877GJQBZftztm (ZyPREXA) 2.5 mg tablet 04/08/2023 04/16/2024 Discontinued (Duplicate Listing)Start: 08-07-2022 End: 33-71-5049ijdw 1 tablet by mouth once dailyOlanzapine 5 mg tablet Active 5 MG PO Daily September 11, 2023 12:00am Complies with drug therapyStart: 08-07-2022 End: 99-52-1796fpgx 1 tablet by mouth once daily at bedtimeolanzapine 7.5 mg oral tablet 7.5 mg = 1 tab(s), Oral, Once a day (at bedtime), Refills(s) 0 Start Date: 08/07/22 Status: Ordered End: 96-26-1727qehl 1 tablet by mouth once dailyOLANZapine (ZyPREXA) 15 MG tablet Take 15 mg by mouth 1 (one) time each day at the same time. Active polyethylene glycol 3350 28593 mg powder for oral solution (20 sources)Osmotic LaxativeStart: 02-21-2023 End: 25-50-6075qtvr 4-8 [oz_av] by mouth once dailypolyethylene glycol (GLYCOLAX) 17 gram packet MIX 1 PACKET IN 4-8 OZ OF WATER/JUICE AND TAKE BY MOUT H ONCE EVERY DAY 30 packet 11 02/17/2024 ActiveStart: 72-92-4677gzcxdkipuzrw glycol 3350 17 gram packet 17 gm, Oral, Daily, dissolve one packet in 4-8 ozs of juiceor water, Refills(s) 0 Start Date: 08/07/22 Status: OrderedPolyethylene Glycols (15 sources)Polyethylene Glycol powder Polyethylene Glycol - Active End: 95-83-8732UCRVTKGDANFI GLYCOL 3350 ORAL Polyethylene Glycol 3350 0 04/11/2023 Discontinued (Duplicate Listing)Polyethylene Glycol 3350 - Active Sennosides (Senna) 8.6 mg capsule (2 sources)Start: 44-28-4174ccbg 1 capsule by mouth once dailySennosides (Senna) 8.6 mg capsule Active 8.6 MG PO Daily September 11, 2023 12:00amsennosides, residential 8.6 mg oral tablet (20 sources)Start: 35-59-5232pqvr 1 capsule by mouth once dailySennosides (Senna) 8.6 mg capsule Active 8.6 MG PO Daily September 11, 2023 12:00am Complies with drugtherapyStart: 12-24-2022 End: 79-11-2552ysjp 1 tablet by mouth in the morning, then take 1 tablet by mouth at bedtimeSENNA 8.6 mg tablet Indications: Chronic idiopathic constipation Take 1 tablet (8.6 mg total) by mouth in the morning and 1 tablet (8.6 mg total) before bedtime. Time at 8am and 8pm. 60 tablet 11 03/31/2024 ActiveStart: 08-42-5758othc 2 tablets by mouth once daily as needed for constipationsenna 8.6 mg Tab 17.2 mg = 2 tab(s), Oral, Daily, as needed for constipation if no BM by 8pm, Refills(s) 0 Start Date: 08/07/22 Status: Orderedtake 2 tablets by mouth every twelve hoursSenna 8.6 MG 2 tablets Orally BID PRN Activesulfamethoxazole 800 mg / trimethoprim 160 mg oral tablet (2 sources)Dihydrofolate Reductase Inhibitor Antibacterial, Sulfonamide AntimicrobialStart: 05-13-2023 End: 22-83-3671fgzx 1 tablet by mouth once in the morningsulfamethoxazole- trimethoprim (BACTRIM DS) 800-160 mg per tablet Indications: Acute cystitis without hematuria Take 1 tablet by mouth in the morning and 1 tablet before bedtime. Do all this for 10 days. Take with food.. 20 tablet 0 05/13/2023 05/20/2023 Discontinued (Therapy completed)tamsulosin hydrochloride 0.4 mg oral capsule (20 sources)alpha-Adrenergic BlockerStart: 10-10-2023 End: 27-10-9506vxfe 1 capsule by mouth once dailytamsulosin (FLOMAX) 0.4 mg capsule Indications: Benign prostatic hyperplasia with urinary frequencyTAKE 1 CAPSULE BY MOUTH EVERY NIGHT AT 8PM FOR BPH 31 capsule 11 08/18/2024 Active Start: 88-45-0635mxeh 1 capsule by mouth every twenty-four hours at bedtime tamsulosin (Flomax) 0.4 MG 24 hr capsule Take 0.4 mg by mouth at bedtime 10/10/2023 Activetemazepam 30 mg oral capsule (20 sources)BenzodiazepineStart: 08-07-2022 End: 53-12-7247ojocpsjdj (RESTORIL) 30 mg capsule 04/03/2023 Activetake 2 capsules by mouth once dailytemazepam (Restoril) 15 MG capsule Take 30 mg by mouth 1 (one) time each day at the same time Active End: 98-55-4036quya 1 capsule by mouth once dailytemazepam (Restoril) 15 MG capsule Take 15 mg by mouth 1 (one) time each day at the same time. ActiveTriple Antibiotic Plus topical ointment (1 source)Start: 06-36-4732Vulifz Antibiotic Plus topical ointment 1 irene, Topical, BID, 15 gram, Refill(s) 0, [facility] #[id number], cm, 08/06/22 17:15:00 EDT, Height/Length Dosing, 100.5, kg, 08/06/22 17:15:00 EDT, Weight Dosing Start Date: 08/06/22 Status: Orderedtrospium chloride 20 mg oral tablet (20 sources)Cholinergic Muscarinic AntagonistStart: 04-08-2024 End: 47-84-7583dnir 1 tablet by mouth once dailytrospium (SANCTURA) 20 mg tablet TAKE 1 TABLET BY MOUTH EVERY NIGHT 31 tablet 11 09/28/2024 Iyjmkt61 hr venlafaxine 75 mg extended release oral capsule (20 sources)Serotonin and Norepinephrine Reuptake InhibitorStart: 05-68-0263hbwk 1 capsule by mouth once dailyVenlafaxine 75 mg capsule,extended release 24hr Active 75 MG PO Daily September 11, 2023 12:00am Complies with drug therapyStart: 41-88-7816oacuziulgkb XR (EFFEXOR XR) 75 mg 24 hr capsule 04/08/2023 Active Start: 87-40-6705zprw 1 capsule by mouth once daily in the morningvenlafaxine 37.5 mg Cap-ER 37.5 mg = 1 cap(s), Oral, Daily, in the am, Refills(s) 0 Start Date: 08/07/22 Status: Orderedtake 1 tablet by mouth every twelve hours venlafaxine (Effexor) 75 MG tablet Take 75 mg by mouth every 12 (twelve) hours Activetake 1 tablet by mouth every twelve hoursvenlafaxine (Effexor) 37.5 MG tablet Take 37.5 mg by mouth every 12 (twelve) hours. Active End: 60-20-6697sykc 1 tablet by mouth twice daily at mealtimevenlafaxine (EFFEXOR) 37.5 mg tablet 1 tablet with food Orally Twice a day 0 04/11/2023 Discontinued (Therapy completed) Completed/Discontinued Medications MedicationDrug Class(es)DatesSig (Normalized)Sig (Original)acetaminophen 325 mg / caffeine 30 mg / dihydrocodeine bitartrate 16 mg oral tablet (1 source)Opioid Agonist, Central Nervous System Stimulant, Methylxanthine End: 14-91-3807qqyrrdxizhntb-caff-dihydrocod 325-30-16 mg tablet Acetaminophen 0 04/11/2023 Discontinued (Duplicate Listing)clonazePAM 0.1 mg/mL in compound vehicle susp SF no.20-compounding vehicle syrup no.23 (1 source) End: 01-60-2619dqkkvffZVP 0.1 mg/mL in compound vehicle susp SF no.20- compounding vehicle syrup no.23 clonazePAM Discontinued (Duplicate Listing)MEMANTINE HCL, BULK, MISC (1 source) End: 72-78-7966RUUUYXGIK HCL, BULK, MISC Memantine HCl 0 04/11/2023 Discontinued (Therapy completed) Problems Active Problems Problem ClassificationProblemDateDocumented DateEpisodic/ChronicAnxiety disorders (20 sources)Obsessive-compulsive disorder; Translations: [Obsessional thoughts] Onset: 614983-63-2633CqphclvFzkgeqluc-mejdjtz, conduct, and disruptive behavior disorders (20 sources)Attention deficit hyperactivity disorder; Translations: [Attention- deficit hyperactivity disorder, unspecified type]Onset: ChronicAttention-deficit, conduct, and disruptive behavior disorders (20 sources)Conduct disorder; Translations: [Conduct disorder, unspecified] Onset: 617595-41-4334QwbjssnWxvulfmrp-ghgxlsr, conduct, and disruptive behavior disorders (1 source)Aggressive behaviorOnset: 31-83-4319MlopvigFolrndbfr-deficit, conduct, and disruptive behavior disorders (1 source)Other symptoms and signs involving appearance and behavior; Translations: [Other symptoms and signsinvolving appearance and behavior]Onset: 28-20-1239EhrigturUbyaeyw dysrhythmias (1 source)Sinus uepnsoxsoer30-77-9010VkiuxomiDsmkzoij, dementia, and amnestic and other cognitive disorders (20 sources)Pseudobulbar affect; Translations: [Pseudobulbar affect]Onset: 701306-24-2027QpynigiYtcmpfasogpsq disorders (20 sources)Intellectual disability; Translations: [Unspecified intellectual disabilities]Onset: 185944-12-9155SdljgvxTkyiuuij mellitus with complications (4 sources)Type 2 diabetes mellitus with unspecified complications; Translations: [TYPE 2 DM W/UNS COMPLICATIONS]Onset: 52-61-4622MvxgouaMaaupzoo mellitus without complication (5 sources)Type 2 diabetes mellitus without complication; Translations: [Type 2 diabetes mellitus without complications]Onset: hronic Diabetes mellitus without complication (2 sources)Prediabetes; Translations: [Prediabetes]Onset: 245605-64-5579 EpisodicDisorders of lipid metabolism (3 sources)Pure hypercholesterolemia, unspecified; Translations: [Mixed hyperlipidemia]Onset: 778734-11-2510AlacqveBqmyqocqy hypertension (20 sources)Essential hypertension; Translations: [Essential (primary) hypertension]Onset: 727234-49-7424NesexawCcksmbtmxeqwm symptoms and ill- defined conditions (20 sources)Unspecified urinary incontinence; Translations: [Nocturnal enuresis] Onset: 417309-59-5623PiqbioeOqofpbjcjxk of prostate (2 sources)Urinary frequency due to benign prostatic hypertrophy; Translations: [Benign prostatic hyperplasia with lower urinary tract symptoms]10-10-2023 ChronicImpulse control disorders, NEC (20 sources)Intermittent explosive disorder; Translations: [Intermittent explosive disorder]Onset: 511549-68-7858AmhnrtlQnwo disorders (20 sources)Mood disorder; Translations: [Unspecified mood [affective] disorder] Onset: 831478-81-3833EbajiggAqblhse (3 sources)Onychomycosis due to dermatophyte ; Translations: [Tinea unguium] 26-26-8760QstqtlakNsbfbda system congenital anomalies (1 source)Congenital hydrocephalus, unspecified; Translations: [CONGENITAL HYDROCEPHALUS UNS]Onset: 95-78-6322YacussgXufxwllqkuw deficiencies (4 sources)Vitamin D deficiency, unspecified; Translations: [Vitamin D deficiency]Onset: 258255-82-9003MzhwlxlUfvjk aftercare (2 sources)half-way (current) use of antibiotics; Translations: [Long-term (current) use of antibiotics]78-43-0059PqpurhacEiyza connective tissue disease (6 sources)Pain in toe; Translations: [Pain in right toe(s)]54-65-4585Bnkcmgix Other gastrointestinal disorders (10 sources)Chronic idiopathic constipation; Translations: [Chronic idiopathic constipation]62-05-3607TljktkxCeywt gastrointestinal disorders (2 sources)Chronic idiopathic constipation; Translations: [Chronic idiopathic constipation]Onset: 62-89-0795GvhrtamZokrd gastrointestinal disorders (1 source)Constipation, unspecifiedEpisodicOther nervous system disorders (20 sources)Hydrocephalus; Translations: [Hydrocephalus, unspecified]Onset: 099616-05-5422PcrqmpaJykmnlc on above:congenitalOther nervous system disorders (1 source)Other hydrocephalus; Translations: [Other hydrocephalus]Onset: 15-81-2360KbzvrrtYwkrz nutritional; endocrine; and metabolic disorders (2 sources)Body mass index 25-29 - overweight; Translations: [Body mass index (BMI) 26.0-26.9, adult]EpisodicOther skin disorders (3 sources)Dystrophia unguium; Translations: [Nail dystrophy]30-62-8987Owyxixth Paralysis (20 sources)Cerebral palsy; Translations: [Other cerebral palsy]Onset: 213781-00-1965WjcavbmQmvvyllr codes; unclassified (20 sources)Finding related to sleep; Translations: [Sleep apnea, unspecified] Onset: 375328-24-4685OrnrgijGuohkexgszmv (1 source)Finding related to yjctn43-49-2139Qbvzzwvxrhts (1 source)Intellectual xhuobjdabh87-75-2257Smrstdscdlix (1 source)EMSOnset: 18-18-3183Foewiqbyrfmn (1 source)Annual ExamOnset: 94-75-0994Kttxuffcjolt (1 source)ear flushOnset: 58-98-8642Kieedsx tract infections (9 sources)Urinary tract infectious disease; Translations: [Urinary tract infection, site not specified]Onset: 276449-53-7067Kqxwwjko Past or Other Problems Problem ClassificationProblemDateDocumented DateEpisodic/ChronicDisorders of teeth and jaw (20 sources)Dental caries; Translations: [Dental caries, unspecified]Onset: 360284-66-1605ChdisxoeSwmdjdulcxvog symptoms and ill-defined conditions (1 source)Dysuria; Translations: [DYSURIA]Onset: 60-42-8456TircsppqZjhp disorders (20 sources)Mood disordersOnset: 10-10-2023 Resolved: 424880-61-9254Lzwob ear and sense organ disorders (2 sources)Impacted cerumen in right ear; Translations: [Impacted cerumen, right ear]76-79-9034BckdcpwmCqjkb ear and sense organ disorders (1 source)Impacted cerumen of bilateral ears; Translations: [Impacted cerumen, bilateral]56-96-5273WmpybypxRowkt ear and sense organ disorders (1 source)Impacted cerumen, bilateral; Translations: [Impacted cerumen, bilateral]Onset: 04-93-4195SrrkxnqxKsanq gastrointestinal disorders (20 sources)Constipation; Translations: [Constipation, unspecified]Onset: 542853-71-9124JpovcmarFnhrw screening for suspected conditions (not mental disorders or infectious disease) (2 sources)Patient encounter status; Translations: [Encounter for screening for malignant neoplasm of colon]Onset: 558243-19-2948SydlztfiWatnxbis codes; unclassified (20 sources)Amnesia; Translations: [Other amnesia]Onset: EpisodicUnclassified (20 sources)Onset: 01-13-2024 Resolved: Results Test NameValueInterpretationReference RangeFacilityCBC WITH AUTO DIFFERENTIALon 45-67-3352RNYPPECIQ ABSOLUTE COUNT (10*3/UL) BY AUTOMATED COUNT0.1 10*3/uLNormal 0.0-0.2PMcKitrick HospitalComment on above:Performed By: #### CBCA #### [address] [address] VIRBASOPHILS RELATIVE PERCENT BY AUTOMATED COUNT0.6 %Normal [facility]Com[facility] on above:Performed By: #### CBCA #### [address] [address] VIRCELLAVISION DIFFERENTIAL TYPEAUTOMATED DIFFERENTIALNormal [facility] PrebleComment on above:Performed By: #### CBCA #### [facility] ([address] [address] VIREosinophils (Bld) [#/Vol]0.3 10*3/uLNormal0.0-0.4ProThe University Of [facility] Medical Centerca [facility] CenterComselect specialty hospital on above:Performed By: #### CBCA #### [address] [address] VIREOSINOPHILS RELATIVE PERCENT BY AUTOMATED COUNT2.9 %Normal [facility] PrebleComment on above:Performed By: #### CBCA #### [facility] ([address] [place] [address] VIRErythrocyte distribution width (RBC) [Ratio]13.8 %Normal 11.5-15ProDallas Regional Medical CenterComment on above:Performed By: #### CBCA #### [facility] ([address] [place] [address] VIRHematocrit (Bld) [Volume fraction]41.3 %Lcrupl50-17 [facility] PrebleComment on above:Performed By: #### CBCA #### [facility] ([address] [address] VIRHemoglobin (Bld) [Mass/Vol]14.1 g/lJGrorur18-20OflXuaalqDallas Regional Medical CenterComment on above:Performed By: #### CBCA #### [facility] ([address] [address] VIRLYMPHOCYTES ABSOLUTE COUNT (10*3/UL) BY AUTOMATED COUNT2.7 10*3/uLNormal1.0-3.5PMcKitrick HospitalComment on above:Performed By: #### CBCA #### [facility] ([address] [address] VIRLYMPHOCYTES RELATIVE PERCENT BY AUTOMATED COUNT30.9 %Normal [facility] PrebleComment on above:Performed By: #### CBCA #### [facility] ([address] [address] VIRMCH (RBC) [Entitic mass]29.2 rmPywxzc17-14ThoBwfcvtDallas Regional Medical CenterComment on above:Performed By: #### CBCA #### [facility] ([address] [place] [address] VIRMCHC (RBC) [Mass/Vol]34.1 g/xOZpezqg32-38McoOkvdmwKettering Health PrebleComment on above:Performed By: #### CBCA #### [facility] ([address] [place] [address] VIRMCV (RBC) [Entitic vol]86 sAVnyxnr14-409SpoQwsmeg [facility] HospitalComment on above:Performed By: #### CBCA #### [facility] ([address] [place] [address] VIRMONOCYTES ABSOLUTE COUNT (10*3/UL) BY AUTOMATED COUNT0.6 10*3/uLNormal0.0-0.9[facility] PrebleComment on above:Performed By: #### CBCA #### [facility] ([address] [place] [address] VIRMONOCYTES RELATIVE PERCENT BY AUTOMATED COUNT7.0 %Normal [facility] PrebleComment on above:Performed By: #### CBCA #### [facility] ([address] [place] [address] VIRNEUTROPHILS ABSOLUTE COUNT BY AUTOMATED COUNT5.1 10*3/uL Normal1.5-6.6[facility] Health PrebleComment on above:Performed By: #### CBCA #### [facility] ([address] [place] [address] VIRNEUTROPHILS RELATIVE PERCENT BY AUTOMATED COUNT58.6 %Normal [facility] PrebleComment on above:Performed By: #### CBCA #### [facility] ([address] [place] [address] VIRPlatelet mean volume (Bld) [Entitic vol]7.4 fLNormal7-12 [facility] PrebleComment on above:Performed By: #### CBCA #### [facility] ([address] [place] [address] VIRPlatelets (Bld) [#/Vol]188 10*3/tBCkogxw213-470OczSamjlx [facility] HospitalComment on above:Performed By: #### CBCA #### [facility] ([address] [place] [address] VIRRBC COUNT4.82 X10E12/LNormal4.1-5.7ProDallas Regional Medical CenterComment on above:Performed By: #### CBCA #### [facility] ([address] [place] [address] VIRWBC (Bld) [#/Vol]8.7 10*3/uLNormal4-11ProDallas Regional Medical CenterComment on above:Performed By: #### CBCA #### [facility] ([address] [place] [address] VIRCOMPREHENSIVE METABOLIC PANELon 22-37-0549Ckbqqpg [Mass/Vol]4.6 g/dLNormal3.2-5.3PMcKitrick HospitalComment on above: Performed By: #### CMP #### [facility] ([address] [place] [address] VIRALP [Catalytic activity/Vol]77 U/QGrlbdu86-786MtrCkwxgnDallas Regional Medical CenterComment on above:Performed By: #### CMP #### [facility] ([address] [place] [address] VIRALT [Catalytic activity/Vol]16 U/LNormal<=40ProDallas Regional Medical CenterComment on above:Performed By: #### CMP #### [facility] ([address] [place] [address] VIRAnion gap [Moles/Vol]5 mmol/LNormal5-15ProDallas Regional Medical CenterComment on above:Performed By: #### CMP #### [facility] ([address] [place] [address] VIRAST [Catalytic activity/Vol]19 U/LNormal<=41ProDallas Regional Medical CenterComment on above:Performed By: #### CMP #### [facility] ([address] [place] [address] VIRBilirubin [Mass/Vol]0.6 mg/dLNormal0.3-1.2PMcKitrick HospitalComment on above:Performed By: #### CMP #### [facility] ([address] [place] [address] VIRCalcium [Mass/Vol]8.9 mg/dLNormal8.5-10.5PMcKitrick HospitalComment on above:Performed By: #### CMP #### [address] [place] [address] VIRChloride [Moles/Vol]101 mmol/BEnwcke54-202QwfGibbduDallas Regional Medical CenterComment on above:Performed By: #### CMP #### [facility] ([address] [place] [address] VIRCO2 [Moles/Vol]27 mmol/SOtrmyu34-02YwbWtlkibMcKitrick HospitalComment on above:Performed By: #### CMP #### [facility] ([address] [place] [address] VIRCreatinine [Mass/Vol]1.27 mg/dLHigh0.70-1.20ProDallas Regional Medical CenterComment on above:Result Comment: METHOD TRACEABLE TO IDMS STANDARDPerformed By: #### CMP #### [facility] ([address] [place] [address] VIRGFR/1.73 sq M.predicted among non-blacks MDRD (S/P/Bld) [Vol rate/Area]71 mL/min/{1.73_m2}Normal>=60ProDallas Regional Medical CenterComment on above:Result Comment: eGFR not reported due to non-numeric value for Creatinine. Reported eGFR is based on the CKD-EPI 2020 equation that does not use a race coefficient.Performed By: #### CMP #### [address] [place] [address] VIRGlucose [Mass/Vol]119 mg/zIDche82-70ValRqbricDallas Regional Medical CenterComment on above:Performed By: #### CMP #### [facility] ([address] [place] [address] VIRPotassium [Moles/Vol]4.0 mmol/LNormal3.5-5.0[facility] PrebleComment on above:Performed By: #### CMP #### [address] [place] [address] VIRProtein [Mass/Vol]7.4 g/dLNormal6.0-8.0[facility] PrebleComment on above:Performed By: #### CMP #### [address] [place] [address] VIRSodium [Moles/Vol]133 mmol/PSzz506-798PduFtykepDallas Regional Medical CenterComment on above:Performed By: #### CMP #### [address] [place] [address] VIRUrea nitrogen [Mass/Vol]17 mg/dLNormal5-23ProDallas Regional Medical CenterComment on above:Performed By: #### CMP #### [address] [place] [address] VIRETHANOLon 34-83-5804Gndjgol [Mass/Vol]mg/dLNormal<=0.080 [facility]bleComselect specialty hospital on above:Result Comment: This report is intended for use in clinical monitoring or management of patients.Performed By: #### ALCO #### [facility] ([address] [facility] [place] [address] VIRCT HEAD WO IV CONTRASTon 10-46-1475IA HEAD WO IV CONTRASTCT HEAD WO IV CONTRAST INDICATION: INterval changes, memory loss COMPARISON: Head CT November 28, 2023 TECHNIQUE: Axial images were obtained through the brain without the use of intravenous contrast. Coronal and Sagittal reformations were generated. FINDINGS: Left parietal dianna hole is again demonstrated. A ventriculostomy shunt extends through the dianna hole to terminate in the left lateral ventricle posterior body. CEREBRUM: Mild patchy hypodensities in the periventricular cerebral white matter of both hemispheres appear relatively stable. 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 There is a apparent shunt catheter in the fluid entering through a left occipital dianna hole. BRAINSTEM: Normal. VENTRICLES AND EXTRA-AXIAL SPACES: The ventricles are stable in size and morphology. No developing hydrocephalus. SKULL/SCALP: [place] holes as described. PARANASAL SINUSES AND MASTOID AIR CELLS: Normal. 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 No apparent change in the ventricular size to suggest shunt malfunction. Dictated on: 03/19/2024 8:35 AM This report has been electronically signed and approved by the interpreting Radiologist.NormalNot AvailableUS RETROPERITONEAL COMPLETEon [id number] RETROPERITONEAL COMPLETEUS RETROPERITONEAL COMPLETE RENAL ULTRASOUND HISTORY: Nocturnal anuresis, urinary incontinence COMPARISON: None FINDINGS: The right kidney measures 10.8 cm and left kidney 11.2 cm in length. Visualization of the kidneys compromised due to overlying bowel gas and poor acoustic windows. Cortical thickness and corticomedullary differentiation are preserved. No renal stones, masses, or collecting system dilatation. Bladder underdistended and therefore not well evaluated. Post void bladder residual measures 72 mL. IMPRESSION: * Grossly unremarkable sonographic appearance of the kidneys. * Post void bladder residual measures 72 mL. Finalized by Grant Murillo MD on 02/17/2024 12:27 PMNormalProDallas Regional Medical CenterProstate specific Ag [Mass/Vol]on [id number] SPEC ANT0.68 ng/mL Normal0.00-4.00ProDallas Regional Medical CenterComment on above:Result Comment: The method used for this test is Hattie [place] DXI chemiluminescent immunoassay. Values obtained by different assay methods cannot be used interchangeably.Performed By: #### 2857-1 #### [facility] ([id number]) [address], [address] [place], [place] [address]LZELU CULTUREon 33-30-4340Vngpzoly identified Cx Nom (U)CULTURE RESULTS <10,000 ORGANISMS/ML NORMAL URO GENITAL FLORANormalProMedica [facility] Center Comment on above:Performed By: #### 630-4 #### [facility] ([id number]) [address], [address] [place], [place] [address]WI HEAD WO IV CONTRASTon 20-65-9066IU HEAD WO IV CONTRASTTITLE OF EXAM: CT - CT HEAD WITHOUT CONTRAST REASON FOR EXAM: Memory loss, stumbling TECHNIQUE: Axial CT of the head COMPARISON: None. FINDINGS: Brain and intracranial structures: Continuity of the fourth ventricle, left lateral ventricle, and retrocerebellar space with a left occipital approach drain with tip within the left posterior fossa inferior of the tentorium cerebelli as well as a left parietal approach drain with tip located near the posterior aspect of the roots of the third ventricle superior to the pineal gland. Mild lateral ventricular dilation primarily of the atria. Minimal rightward midline shift, approximately 2 mm. There is absence or hypoplasia of the majorityof the left cerebellar lobe. No herniation. Mass effect causing cerebellar diminution is consideredunlikely, though there may be an element of compression. No mass lesion, hemorrhage, or acute infarct. Skull/scalp: Left occipital and left parietal dianna holes to accommodate the aforementioned drains. Orbits and face (included portions): Normal. Paranasal sinuses and mastoid air cells (included portions): Clear. IMPRESSION: 1. Postprocedural (and possibly developmental) findings primarily of the posterior fossa as detailed. No acute appearing abnormality, though comparison studies are not available. 2. Minimal rightward midline shift, approximately 2 mm. No herniation of tissues. DICTATED ON: 11/28/2023 8:32 AM This report has been electronically signed in approved by the interpreting radiologist. Electronically Signed Nakul Hernandez M.D. 2023-11-28 08:38:13NormalNot AvailableComment on above:Order Comment: HYDROCEPHALUS, MEMORY ISSUES X 1 YR, STUMBLINGCBC AND AUTO DIFFon 10-10-2023 ABSOLUTE BASOPHIL0.0 X10E9/LNormal0.0-0.2Pro[facility] Hospital - CincinnatiComment on above:Performed By: #### CBCA, CMP, 09328-2, HA1C, THYR, 12061-2 #### [facility] ([id number]) [address], [address] [place], [place] [address]HZHYZRPV NEUTROPHIL3.7 X10E9/LNormal1.5-6.6ProCleveland Clinic Mentor HospitalComment on above:Performed By: #### CBCA, CMP, 43519-1, HA1C, THYR, 81988-0 #### [facility] ([id number]) [address], [address] [place], [place] [address]Qvtuczbzh/100 WBC (Bld)0.5 %[facility] Comment on above:Performed By: #### CBCA, CMP, 61176-6, HA1C, THYR, 23777-5 #### [facility] ([id number]) [address], [address] [place], [place] [address]Licncdiocle (Bld) [#/Vol]0.1 10*3/uLNormal0.0-0.4ProCleveland Clinic Mentor HospitalComment on above:Performed By: #### CBCA, CMP, 55939-8, HA1C, THYR, 91179-2 #### [facility] ([id number]) [address], [address] [place], [place] [address]Bhelzldzsqv/100 WBC (Bld)2.2 %[facility] Comment on above:Performed By: #### CBCA, CMP, 89143-3, HA1C, THYR, 67981-8 #### [facility] ([id number]) [address], [address] [place], [place] [address]Klaukyexmnu distribution width (RBC) [Ratio]12.8 %Normal 11.5-15.0ProWestern Reserve Hospital HospitalComment on above:Performed By: #### CBCA, CMP, 36297-3, HA1C, THYR, 12913-7 #### [facility] ([id number]) [address], [address] [place], [place] [address]Biwxhklzbb (Bld) [Volume fraction]44.4 %Nrbrey30-63UvsZixkrn [facility] HospitalComment on above:Performed By: #### CBCA, CMP, 30753-1, HA1C, THYR, 25228-3 #### [facility] ([id number]) [address], [address] [place], [place] [address]Qdrsggcmcc (Bld) [Mass/Vol]15.4 g/gTRakvoj07.0-17.0ProWestern Reserve Hospital HospitalComment on above:Performed By: #### CBCA, CMP, 35583-5, HA1C, THYR, 28863-2 #### [facility] ([id number]) [address], [address] [place], [place] [address]Hvnhetnzaau (Bld) [#/Vol]1.6 10*3/uLNormal1.0-3.5ProMedica [facility]illac HospitalComment on above:Performed By: #### CBCA, CMP, 07922-6, HA1C, THYR, 25667-8 #### [facility] ([id number]) [address], [address] [place], [place] [address]Sksajrbbiai/100 WBC (Bld)26.7 %NormalProWestern Reserve Hospital Hospital Comment on above:Performed By: #### CBCA, CMP, 10312-9, HA1C, THYR, 65486-5 #### [facility] ([id number]) [address], [address] [place], [place] [address]GWU (RBC) [Entitic mass]30.0 vnNqoiys34-02TaqExwucb [facility] HospitalComment on above:Performed By: #### CBCA, CMP, 83826-5, HA1C, THYR, 09703-9 #### [facility] ([id number]) [address], [address] [place], [place] [address]TTPS (RBC) [Mass/Vol]34.6 g/zWUdlaex96-13RfaThxsyv [facility] HospitalComment on above:Performed By: #### CBCA, CMP, 67743-8, HA1C, THYR, 52579-4 #### [facility] ([id number]) [address], [address] [place], [place] [address]FUU (RBC) [Entitic vol]87 rFRkndai03-570RblOgepye [facility] HospitalComment on above:Performed By: #### CBCA, CMP, 24382-8, HA1C, THYR, 87577-1 #### [facility] ([id number]) [address], [address] [place], [place] [address]Kmpfklmeu (Bld) [#/Vol]0.5 10*3/uLNormal0-0.9ProMedica [facility]illac HospitalComment on above:Performed By: #### CBCA, CMP, 42545-1, HA1C, THYR, 28009-2 #### [facility] ([id number]) [address], [address] [place], [place] [address]Lfzjevczd/100 WBC (Bld)8.3 %NormalAdams County Regional Medical Center Comment on above:Performed By: #### CBCA, CMP, 38397-4, HA1C, THYR, 46977-9 #### [facility] ([id number]) [address], [address] [place], [place] [address]Yogkebwommk/100 WBC (Bld)62.3 %NormalAdams County Regional Medical Center Comment on above:Performed By: #### CBCA, CMP, 76916-7, HA1C, THYR, 21261-8 #### [facility] ([id number]) [address], [address] [place], [place] [address]Gnshxxjh mean volume (Bld) [Entitic vol]8.2 fLNormal7-12 [facility] Medical CenterComment on above:Performed By: #### CBCA, CMP, 24668-4, HA1C, THYR, 48088-2 #### [facility] ([id number]) [address], [address] [place], [place] [address]Bjqcskgot (Bld) [#/Vol]179 10*3/yKEtusdo953-934JrfPdsttv [place] HospitalComment on above:Performed By: #### CBCA, CMP, 67203-6, HA1C, THYR, 54407-6 #### [facility] ([id number]) [address], [address] [place] [address]PQZ COUNT5.11 X10E12/LNormal4.10-5.70ProWestern [facility] Hospital Hospital Comment on above:Performed By: #### CBCA, CMP, 17553-5, HA1C, THYR, 14391-1 #### [facility] ([id number]) [address], [address] [place] [address]LOY (Bld) [#/Vol]5.9 10*3/uLNormal4.0-11.0ProCleveland Clinic Mentor HospitalComment on above:Performed By: #### CBCA, CMP, 10150-8, HA1C, THYR, 31434-4 #### [facility] ([id number]) [address], [address] [place], [place] [address]XSS auto differentialon 83-44-6090Gdtoszjld (Bld) [#/Vol]0.0 10*3/uLProMedica Health SystemBasophils/100 WBC (Bld)0.5 %[facility]Medica Health SystemEosinophils (Bld) [#/Vol]0.1 10*3/uLProMedica Health SystemEosinophils/100 WBC (Bld)2.2 %[facility] Medical CenterErythrocyte distribution width (RBC) [Ratio]12.8 %11.5 - 15.0 %[facility] Medical CenterHematocrit (Bld) [Volume fraction]44.4 %39 - 49 %[facility] CenterHemoglobin (Bld) [Mass/Vol]15.4 g/dL13.0 - 17.0 g/dLAdena Pike Medical CenterLymphocytes (Bld) [#/Vol]1.6 10*3/uL [facility] CenterLymphocytes/100 WBC (Bld)26.7 %[facility] CenterMCH (RBC) [Entitic mass]30.0 pg27 - 34 [facility] CenterMCHC (RBC) [Mass/Vol]34.6 g/dL32 - 36 g/dLAdena Pike Medical CenterMCV (RBC) [Entitic vol]87 fL80 - [address] [facility]'sMonocytes (Bld) [#/Vol]0.5 10*3/[facility]aginawMonocytes/100 WBC (Bld)8.3 %[facility] CenterNeutrophils (Bld) [#/Vol]3.7 10*3/uLAdena Pike Medical CenterNeutrophils/100 WBC (Bld)62.3 % [facility] CenterPlatelet mean volume (Bld) [Entitic vol]8.2 fL7 - 12 fL [facility] CenterPlatelets (Bld) [#/Vol]179 10*3/[facility] RBC (Bld) [#/Vol]5.11 10*6/[facility] SaginawWBC corrected for nucl RBC Auto (Bld) [#/Vol]5.9[facility] SystemCOMPREHENSIVE METABOLIC PANELon 16-40-9249Kcqybtu [Mass/Vol]4.8 g/dLNormal3.2-5.3PMercy Health Defiance HospitalComment on above:Performed By: #### CBCA, CMP, 20319-0, HA1C, THYR, 92713-0 #### [facility] ([id number]) [address], [address] [place], [place] [address]ULT [Catalytic activity/Vol]77 U/KUswlea91-941NxjVrgwnl [place] HospitalComment on above:Performed By: #### CBCA, CMP, 66089-6, HA1C, THYR, 66250-8 #### [facility] ([id number]) [address], [address] [place], [place] [address]HSO [Catalytic activity/Vol]15 U/LNormal0-40Pro[facility]ica [place] HospitalComment on above:Performed By: #### CBCA, CMP, 00332-5, HA1C, THYR, 58742-5 #### [facility] ([id number]) [address], [address] [place], [place] [address]Eaggx gap [Moles/Vol]7 mmol/LNormal5-15[facility] [place] [facility] Comment on above:Performed By: #### CBCA, CMP, 35029-4, HA1C, THYR, 67561-7 #### [facility] ([id number]) [address], [address] [place], [place] [address]DIF [Catalytic activity/Vol]19 U/LNormal0-41ProMedica [place] HospitalComment on above:Performed By: #### CBCA, CMP, 25983-1, HA1C, THYR, 92005-3 #### [facility] ([id number]) [address], [address] [place], [place] [address]Hhsdaxhdy [Mass/Vol]0.6 mg/dLNormal0.3-1.2ProMedica [place] HospitalComment on above:Performed By: #### CBCA, CMP, 28329-6, HA1C, THYR, 45069-0 #### [facility] ([id number]) [address], [address] [place], [place] [address]Opabjgn [Mass/Vol]9.9 mg/dLNormal8.5-10.5ProMedica [place] HospitalComment on above:Performed By: #### CBCA, LEONEL, 96965-9, HA1C, THYR, 04370-8 #### [facility] ([id number]) [address], [address] [place], [place] [address]Fyrcferp [Moles/Vol]101 mmol/ZEyyjpm08-606WuoVogldl [place]edo HospitalComment on above:Performed By: #### CBCBandar, LEONEL, 65755-7, HA1C, THYR, 84492-3 #### [facility] ([id number]) [address], [address] [place], [place] [address]NM6 [Moles/Vol]31 mmol/OEtalwu13-51PaiDkzfofMercy Health Defiance Hospital Comment on above:Performed By: #### JEROME, LEONEL, 68499-5, HA1C, THYR, 54538-7 #### [facility] ([id number]) [address], [address] [place], [place] [address]Lrcivqxwkx [Mass/Vol]1.32 mg/dLHigh0.60-1.30ProCleveland Clinic Mentor HospitalComment on above:Result Comment: METHOD TRACEABLE TO IDMS STANDARD Performed By: #### JEROME, LEONEL, 30624-2, HA1C, THYR, 35731-9 #### [facility] ([id number]) [address], [address] [place], [place] [address]PDH/1.73 sq M.predicted among non-blacks MDRD (S/P/Bld) [Vol rate/Area]68 mL/min/{1.73_m2}Normal>59ProCleveland Clinic Mentor HospitalComment on above: Result Comment: Reported eGFR is based on the CKD-EPI 2020 equation that does not use a race coefficient.Performed By: #### CBCA, CMP, 32999-9, HA1C, THYR, 98145-1 #### [facility] ([id number]) [address], [address] [place], [place] [address]Zzvrbjl [Mass/Vol]101 mg/xRUtrj84-97WauEvgppgAdams County Regional Medical Center Comment on above:Performed By: #### CBCA, CMP, 88267-0, HA1C, THYR, 97484-1 #### [facility] ([id number]) [address], [address] [place], [place] [address]Ksxclgaxy [Moles/Vol]4.3 mmol/LNormal3.5-5.0ProCleveland Clinic Mentor HospitalComment on above:Performed By: #### CBCA, CMP, 15265-4, HA1C, THYR, 12101-3 #### [facility] ([id number]) [address], [address] [place], [place] [address]Ixlycnd [Mass/Vol]7.5 g/dLNormal6.0-8.0[facility] Comment on above:Performed By: #### CBCA, CMP, 17212-9, HA1C, THYR, 53572-5 #### [facility] ([id number]) [address], [address] [place], [place] [address]Uzrybv [Moles/Vol]139 mmol/DExvheg635-011EnrMxpbba [place] HospitalComment on above:Performed By: #### CBCA, CMP, 01083-8, HA1C, THYR, 05335-5 #### [facility] ([id number]) [address], [address] [place], [place] [address]Eute nitrogen [Mass/Vol]16 mg/dLNormal5-23ProCleveland Clinic Mentor HospitalComment on above:Performed By: #### CBCA, CMP, 35722-7, HA1C, THYR, 76839-1 #### [facility] ([id number]) [address], [address] [place], [place] [address]Amfapanckvkbn metabolic panelon 15-47-6333Rkfoejf [Mass/Vol]4.8 g/dL3.2 - 5.3 g/dLProMediCorey Hospital SystemALP [Catalytic activity/Vol]77 U/L39 - 130 U/LProMedTogus VA Medical Center SystemALT No additional P-5'-P [Catalytic activity/Vol] 15 U/L0 - 40 U/[facility] SystemAnion gap [Moles/Vol]7 mmol/L5 - 15 mmol/[facility] Health SystemAST [Catalytic activity/Vol]19 U/L0 - 41 U/L [facility] CenterBilirubin [Mass/Vol]0.6 mg/dL0.3 - 1.2 mg/dLUniversity Hospitals Parma Medical Center SystemCalcium [Mass/Vol]9.9 mg/dL8.5 - 10.5 mg/dLAdena Pike Medical Center Chloride [Moles/Vol]101 mmol/L98 - 109 mmol/[facility] Health SystemCO2 [Moles/Vol]31 mmol/L22 - 32 mmol/[facility] SystemCreatinine [Mass/Vol] 1.32 mg/dLHigh0.60 - 1.30 mg/dLAdena Pike Medical CenterComment on above:METHOD TRACEABLE TO IDNH STANDARDeGFR (CKD-EPI)non-race uaqqz[address] [place], [place] [address]Comment on above: Reported eGFR is based on the CKD-EPI 2020 equation that does not use a race coefficient. Glucose [Mass/Vol]101 mg/qDXblo56 - 99 mg/dLAdena Pike Medical CenterPotassium [Moles/Vol]4.3 mmol/L3.5 - 5.0 mmol/[facility] SystemProtein [Mass/Vol] 7.5 g/dL6.0 - 8.0 g/dLNovant Health Pender Medical Centerodium [Moles/Vol]139 mmol/L134 - 146 mmol/[facility] CampusUrea nitrogen [Mass/Vol]16 mg/dL5 - 23 mg/dL [facility] Medical CenterHGB A1C (GLYCO-HGB)on 80-89-4423Xevrmzb [Mass/Vol]117 mg/dLNoOhio State Harding HospitalComment on above:Performed By: #### CBCA, CMP, 65546-1, HA1C, THYR, 10197-3 #### [facility] ([id number]) [address] [place], [place] [address]XhW3i (Bld) [Mass fraction]5.7 %High4.4-5.6Ad[facility] Regional Medical CenterComment on above:Result Comment: NOTE ADA Guidelines Result HgbA1c Normal : less than 5.7 % Prediabetes : 5.7 % to 6.4 % Diabetes : > 6.4 % Use with caution in patients with abnormal hemoglobin variants as the half-life of red blood cells and in vivo glycation rates are affected.Performed By: #### CBCA, CMP, 85965-7, HA1C, THYR, 94986-4 #### [facility] ([id number]) [address] [place] [address], [address] [place], [place] [address]Gslqxnopci A1con 66-04-4860Ppmsesf glucose Estimated from glycated hemoglobin (Bld) [Mass/Vol]117 mg/dLAdena Pike Medical CenterHbA1c (Bld) [Mass fraction]5.7 %High4.4 - 5.6 %[facility] Medical CenterComment on above:NOTE ADA Guidelines Result HgbA1c Normal : less than 5.7 % Prediabetes : 5.7 % to 6.4 % Diabetes : > 6.4 % Use with caution in patients with abnormal hemoglobin variants as the half-life of red blood cells and in vivo glycation rates are affected. Interpretation and review of laboratory resultsAbnormalHospital of the University of PennsylvaniaLipid 1996 panelon 97-15-1792Iqaizvntted [Mass/Vol]145 mg/pQSzm918 - 200 mg/dLAdena Pike Medical CenterCholesterol in HDL [Mass/Vol]40 mg/dL39 - PINF mg/dLAdena Pike Medical CenterComment on above: HDL <40 mg/dL - High Risk HDL > or = 40mg/dL- Desirable HDL >60 mg/dL - Negative Risk Cholesterol in LDL [Mass/Vol]86 mg/dLNINF - 130 mg/dLAdena Pike Medical Center Comment on above: LDL <100 mg/dL - Desirable LDL >160 mg/dL - High Risk Cholesterol in VLDL [Mass/Vol]19 mg/dL0 - 30 mg/dLAdena Pike Medical Center Cholesterol.total/Cholesterol in HDL [Mass ratio]3.6 {ratio}1.0 - 5.0A[facility] Medical CenterTriglyceride [Mass/Vol]93 mg/dL27 - 150 mg/dLAdena Pike Medical CenterCholesterol [Mass/Vol]145 mg/pAHze259-982PbwFrxxrdAdams County Regional Medical CenterComment on above:Performed By: #### JEROME, LEONEL, 21427-1, HA1C, THYR, 99749-7 #### [facility] ([id number]) [address] [place], [place] [address]Batcagbsxjl in HDL [Mass/Vol]40 mg/dLNormal>39ProCleveland Clinic Mentor HospitalComment on above:Result Comment: HDL <40 mg/dL - High Risk HDL > or = 40mg/dL- Desirable HDL >60 mg/dL - Negative Risk Performed By: #### JEROME, LEONEL, 63758-4, HA1C, THYR, 83099-1 #### [facility] ([id number]) [address], [address] [place], [place] [address]Uhiswhwaexc in LDL [Mass/Vol]86 mg/dLNormal<130ProCleveland Clinic Mentor HospitalComment on above:Result Comment: LDL <100 mg/dL - Desirable LDL >160 mg/dL - High Risk Performed By: #### CBCA, CMP, 04884-0, HA1C, THYR, 97951-9 #### [facility] ([id number]) [address], [address] [place], [place] [address]Eoepuaosuvo in VLDL [Mass/Vol]19 mg/dLNormal0-30ProCleveland Clinic Mentor HospitalComment on above:Performed By: #### CBCBandar, CMP, 47697-0, HA1C, THYR, 58561-5 #### [facility] ([id number]) [address], [address] [place], [place] [address]TYYRJUZXNJS:HDL3.1Fdvkvs8.0-5.0ProCleveland Clinic Mentor HospitalComment on above:Performed By: #### AKOSUAA, CMP, 47989-3, HA1C, THYR, 31397-8 #### [facility] ([id number]) [address], [address] [place], [place] [address]Thckypnvdgsy [Mass/Vol]93 mg/eIIxazfy06-874VpfTrhjyh [place] HospitalComment on above:Performed By: #### JEROME, LEONEL, 94775-6, HA1C, THYR, 58097-5 #### [facility] ([id number]) [address], [address] [place], [place] [address]Nc Panel Informationon 75-83-7949Zqfwaiiyachket and review of laboratory resultsAbnormalHudson Hospital and Clinic SystemPOCT urinalysis dipstick onlyon 24-99-3751Mlswlhzbff (U)clearUniversity Hospitals Parma Medical Center System External Poct Urine BilirubinNegativeProBlanchard Valley Health System SystemExternal Poct Urine BloodNegativeUniversity Hospitals Parma Medical Center SystemExternal Poct Urine ColoryellowProBlanchard Valley Health System SystemExternal Poct Urine GlucoseNegativeUniversity Hospitals Parma Medical Center SystemExternal Poct Urine KetonesNegativeAdena Pike Medical CenterExternal Poct Urine Leukocyte Esterase2+[facility] SystemExternal Poct Urine NitriteNegativeUniversity Hospitals Parma Medical Center SystemExternal Poct Urine Ph7.0[facility] SystemExternal Poct Urine ProteinNegativeAdena Pike Medical CenterExternal Poct Urine Specific Gravity1.015 [facility] CenterExternal Poct Urine Urobilinogen0.2ProMedHelen M. Simpson Rehabilitation HospitalTHYROID PROFILEon 13-90-3564Ztya T4 [Mass/Vol]0.82 ng/dLNormal0.61-1.60[facility] Medical CenterComment on above:Performed By: #### LEONEL CANO, 82810-8, HA1C, THYR, 24920-0 #### [facility] ([id number]) [facility] [facility], [address] [place], [place] [address]INJ2.13 uIU/mLNormal0.49-4.67[facility] Medical CenterComment on above:Performed By: #### LEONEL CANO, 83745-9, HA1C, THYR, 51196-0 #### [facility] ([id number]) [address] [place] [address], [address] [place], [place] [address]Cslvivu profile includes TSH FT4on 23-57-8850Iteh T4 [Mass/Vol] 0.82 ng/dL0.61 - 1.60 ng/dLAdena Pike Medical CenterTS Qn1.13 m[IU]/LProMedHelen M. Simpson Rehabilitation HospitalURINE CULTUREon 42-06-9958Mxrbqzsm identified Cx Nom (U)CULTURE RESULTS NO GROWTH AT <1000 CFU/mLNormalAdams County Regional Medical CenterComment on above: Performed By: #### 630-4 #### [facility] ([id number]) [address] [place] [address], [address] [place], [place] [address]Juqscfn D 25 hydroxyon 69-41-2007Ayxmkgr D+Metabolites [Mass/Vol]63.3 ng/mL30 - 100 ng/mLAdena Pike Medical CenterComment on above: Vitamin D status 25 [place] Vitamin D Deficiency <20 ng/mL Insufficiency 20-29 ng/mL Sufficiency 30-100 ng/mL Toxicity >100 ng/mL NOTE: A pediatric reference range has not been established by the transportation services representative of this kit. The [place] [employer] recommends a Vitamin D level of = or >20ng/mL in infants and children. Vitamin D+Metabolites [Mass/Vol]on 57-19-3759RxnBomnhmMain Campus Medical CenterVITAMIN D 25 HYD TOT63.3 ng/hRQwtefs93-866AudLufesm [place] HospitalComment on above:Result Comment: Vitamin D status 25 [place] Vitamin D Deficiency <20 ng/mL Insufficiency 20-29 ng/mL Sufficiency 30-100 ng/mL Toxicity >100 ng/mL NOTE: A pediatric reference range has not been established by the transportation services representative of this kit. The [place] [employer] recommends a Vitamin D level of = or >20ng/mL in infants and children.Performed By: #### CBCA, CMP, 40989-4, HA1C, THYR, 79999-1 #### [facility] ([id number]) [address] [place] [address], [address] [place], [place] [address]Urine Cultureon 46-35-0344Jtepacxm identified Cx Nom (U)No Growth 2 Days PERFORMED BY: [place] [address] PATHOLOGIST MOBILE HOME SET UP PERSON BENIGNO YEE M.D.NormalSt. Anthony'S Hospital Physician GroupComment on above:Performed By: #### CUU #### [place] [id number] USAPOCT urinalysis dipstick onlyon 48-96-9678Paemgsggdu (U) clearProMedica Health SystemExternal Poct Urine BilirubinNegativeProMedica Health SystemExternal Poct Urine BloodNegativeProMedica Health SystemExternal Poct Urine ColoryellowProBlanchard Valley Health System SystemExternal Poct Urine GlucoseNegative [facility] Health SystemExternal Poct Urine KetonesNegativeProMedica [facility] SystemExternal Poct Urine Leukocyte EsteraseTracePThe Surgical Hospital at Southwoods SystemExternal Poct Urine NitritePositiveProBlanchard Valley Health System SystemExternal Poct Urine Ph6.0 ProMAultman Orrville HospitalExternal Poct Urine ProteinNegativeProBethesda North HospitalExternal Poct Urine Specific Gravity1.020[facility] CenterExternal Poct Urine Urobilinogen0.2PSelect Specialty Hospital - McKeesportURINE CULTUREon 32-50-9097Eaheevay identified Cx Nom (U)CULTURE RESULTS >100,000 ORGANISMS/mL ESCHERICHIA COLI [ S = SUSCEPTIBLE R = RESISTANT I = INTERMEDIATE S-DO = Susceptible-dose dependent NS = Non-suscceptible NO = No Interpretation ] Organism: ESCHERICHIA COLI Antibiotic Interpretation SAMSON Status AMPICILLIN R >=32 F AMP/SULBACTAM I 16/8 F CEFAZOLIN S <=4 F CEFTRIAXONE S <=1 F CIPROFLOXACIN S <=0.25 F GENTAMICIN S <=1 F LEVOFLOXACIN S 1 F NITROFURANTOIN S 32 F PIPERACIL/TAZOBACTAM S <=4 F TOBRAMYCIN S <=1 F TRIMETH/SULFAMETHOXAZOLE R >=16/304 [facility] Medical CenterComment on above:Performed By: #### 630-4 #### [facility] ([id number]) [address] [place] [address], [address] [place], [place] [address]Bkbqznb Totalon 13-79-4874Wcifcfmsbord [Mass/Vol]416 ng/dL Invalid Interpretation Ieei477-495RuileuTrinity Health System Twin City Medical CenterComment on above: Result Comment: Adult male reference interval is based on a population of healthy nonobese males (BMI <30) between 19 and 39 years old. Sun et.al. JCEM 2017,102;7277-4543. PMID: 34866636. Performed at: [facility] [address] [id number] PhD Jonathan Buckleyformed By: #### [id number] #### [facility] [address] [place] [address]EL HEAD WO CONon 90-31-7979PD HEAD WO CONEXAMINATION: CT HEAD WO CON HISTORY: Hydrocephalus COMPARISON: None. TECHNIQUE: CT examination of the head without IV contrast. Dose reduction techniques were achieved by using automated exposure control and/or adjustment of mA and/or kV according to patient size and/or use of iterative reconstruction technique. Findings: The paranasal sinuses and mastoid air cells are well aerated. No air-fluid levels. There are left posterior parietal approach of ventriculostomy catheters. The cranial most catheters tip is within the left lateral ventricle whereas the more caudal catheter has the tip within the cisterna magna. 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 No extra-axial fluid collection. No intra-axial or extra-axial bleed. No mass effect or midline shift. The bellamy-white matter differentiation is preserved. There is asymmetric atrophy of the left cerebellar hemisphere compared to the right. Otherwise, the remainder of the brain parenchymal volume is age appropriate. The ventricles are nondilated. The basal cisterns are patent. The craniovertebral junction is unremarkable. IMPRESSION: 1. Left-sided ventriculostomy catheters, as described above. Mild ventricular dilatation. Electronically authenticated by: ELEANOR HERNANDEZ Date: 2022-08-22 13:42NoChildren's Hospital for RehabilitationXR CSPINE 2_3 VIEWSon 37-78-6908TC CSPINE 2_3 VIEWSEXAM: XR CSPINE 2_3 VIEWS HISTORY: Hydrocephalus COMPARISON: None. TECHNIQUE: 3 views FINDINGS: Cervical spine is in good alignment. Vertebral body heights are normal. Multilevel anterior spurring and C5-C6. Disc spaces are preserved. No acute fracture or subluxation is noted. Soft tissues are unremarkable. IMPRESSION: Degenerative changes as above. Electronically authenticated by: ELEN GARCÍA Date: 2022-08-22 14:32NoChildren's Hospital for RehabilitationXR KUB 1 VIEWon 83-27-8277BJ KUB 1 VIEWEXAMINATION: XR KUB 1 VIEW, XR SKULL LESS THAN 4 VIEWS HISTORY: Hydrocephalus , headache, evaluate shunt COMPARISON: XR C-spine 08/22/2022, XR chest 08/22/2022 FINDINGS: IMPRESSION: Ventricular shunt port positioned over posterior right parietal bone with catheter extending just across midline within the brain. Catheter leading away from the port terminates at base of skull. No appreciable shunt catheter is seen within the neck or upper chest. Catheter is again seen at level of left lung hilum and extends into lower abdomen where crosses midline and is looped within right side of abdomen. Large amount of stool throughout the bowel. IMPRESSION: 1. Disruption of the ventriculoperitoneal shunt catheter with no connecting catheter between base of calvarium and level of left lung hilum. 2. Large stool burden suggestive of constipation. Electronically authenticated by: ANTIONE ZUNIGA Date: 2022-08-22 16:37[facility] Medical CenterAmbulatory Visit Summaryon 82-78-8907Ibhweooqza Visit Summary LA NENA WANG :1980 Visit Date:08/21/2022 Ambulatory Visit Instructions Your Diagnosis Controlled type 2 diabetes mellitus without complication, without long-term current use of insulin Conduct disorder Hydrocephalus Primary hypertension Sinus tachycardia BMI 26.0-26.9,adult Over weight Your Care Team Attending Physician - GELA ISAAC MD Primary Care Physician - ITZ FONSECA, GELA Robbins This Is Your Medications List acetaminophen (acetaminophen 325 mg Tab) amphetamine-dextroamphetamine (Adderall 20 mg Tab) bacitracin/neomycin/polymyxin B/pramoxine top (Triple Antibiotic Plus topical ointment) clonazepam (ClonazePAM 0.5 mg Tab) clonidine (cloNIDine 0.1 mg tab) hydrocortisone topical (hydrocortisone Top 2.5% Crm) linaclotide (Linzess 290 mcg oral capsule) lisinopril (lisinopril 5 mg Tab) memantine (memantine 10 mg Tab) olanzapine (olanzapine 5 mg Tab) olanzapine (olanzapine 7.5 mg oral tablet) polyethylene glycol 3350 (polyethylene glycol 3350 17 gram packet) senna (senna 8.6 mg Tab) temazepam (temazepam 30 mg Cap) venlafaxine (venlafaxine 37.5 mg Cap-ER) Procedures Performed Other. Discharge Vitals Heart Rate (Peripheral) 132 Respiratory Rate 20 Blood Pressure 160/86 Height 193 cm Height 76 in Weight 100.2 kg Weight 220.44 lb BMI 26.9 Medications What How Much When Why Instructions Unchanged acetaminophen (acetaminophen 325 mg Tab) 2 Tablets By Mouth Every 4 hours as needed for generalized discomfort or temp over 100.5 Unchanged amphetamine-dextroamphetamine (Adderall 20 mg Tab) 1 Tablets By Mouth Once a day (in the morning) Unchanged bacitracin/ neomycin/ polymyxin B/ pramoxine top (Triple Antibiotic Plus topical ointment) 1 Application Topical 2 times a day Rash Mental disability Controlled type 2 diabetes mellitus without complication, without long-term current use of insulin Primary hypertension Hydrocephalus, unspecified type BMI 26.0-26.9,adult Over weight Unchanged clonazepam (ClonazePAM 0.5 mg Tab) 1 Tablets By Mouth 2 times a day Unchanged clonidine (cloNIDine 0.1 mg tab) See instructions Take one orally twice a day and 1.5 at bedtime Unchanged hydrocortisone topical (hydrocortisone Top 2.5% Crm) 1 Application Topical 3 times a day Unchanged linaclotide (Linzess 290 mcg oral capsule) 1 Capsules By Mouth Every day Unchanged lisinopril (lisinopril 5 mg Tab) 1 Tablets By Mouth Every day Unchanged memantine (memantine 10 mg Tab) 1 Tablets By Mouth 2 times a day Unchanged olanzapine (olanzapine 5 mg Tab) 1 Tablets By Mouth Every day in the am Unchanged olanzapine (olanzapine 7.5 mg oral tablet) 1 Tablets By Mouth Once a day (at bedtime) Unchanged polyethylene glycol 3350 (polyethylene glycol 3350 17 gram packet) 17 Gram By Mouth Everyday dissolve one packet in 4-8 ozs of juice or water Unchanged senna (senna 8.6 mg Tab) 2 Tablets By Mouth Every day as needed for constipation if no BMby 8pm Unchanged temazepam (temazepam 30 mg Cap) 1 Capsules By Mouth Once a day (at bedtime) as needed forfor sleep Unchanged venlafaxine (venlafaxine 37.5 mg Cap-ER) 1 Capsules By Mouth Every day in the am Allergies No Known Medication Allergies Problems Ongoing - Any problem that you are currently receiving treatment for. ADHD Conduct disorder Constipation Controlled type 2 diabetes mellitus without complication, without long-term current use of insulin Hydrocephalus Mental disability Obsessive compulsive disorder Primary hypertension Sinus tachycardia Sleep disorder breathing [facility]Amb[facility] Summary LA NENA WANG :1980 Visit Date:08/21/2022 Ambulatory Visit Instructions Your Diagnosis Controlled type 2 diabetes mellitus without complication, without long-term current use of insulin Conduct disorder Hydrocephalus Primary hypertension Sinus tachycardia BMI 26.0-26.9,adult Over weight Your Care Team Attending Physician - GELA ISAAC MD Primary Care Physician - GELA ISAAC MD This Is Your Medications List acetaminophen (acetaminophen 325 mg Tab) amphetamine-dextroamphetamine (Adderall 20 mg Tab) bacitracin/neomycin/polymyxin B/pramoxine top (Triple Antibiotic Plus topical ointment) clonazepam (ClonazePAM 0.5 mg Tab) clonidine (cloNIDine 0.1 mg tab) hydrocortisone topical (hydrocortisone Top 2.5% Crm) linaclotide (Linzess 290 mcg oral capsule) lisinopril (lisinopril 5 mg Tab) memantine (memantine 10 mg Tab) olanzapine (olanzapine 5 mg Tab) olanzapine (olanzapine 7.5 mg oral tablet) polyethylene glycol 3350 (polyethylene glycol 3350 17 gram packet) senna (senna 8.6 mg Tab) temazepam (temazepam 30 mg Cap) venlafaxine (venlafaxine 37.5 mg Cap-ER) Procedures Performed Other. Discharge Vitals Heart Rate (Peripheral) 132 Respiratory Rate 20 Blood Pressure 160/86 Height 193 cm Height 76 in Weight 100.2 kg Weight 220.44 lb BMI 26.9 Medications What How Much When Why Instructions Unchanged acetaminophen (acetaminophen 325 mg Tab) 2 Tablets By Mouth Every 4 hours as needed for generalized discomfort or temp over 100.5 Unchanged amphetamine-dextroamphetamine (Adderall 20 mg Tab) 1 Tablets By Mouth Once a day (in the morning) Unchanged bacitracin/ neomycin/ polymyxin B/ pramoxine top (Triple Antibiotic Plus topical ointment) 1 Application Topical 2 times a day Rash Mental disability Controlled type 2 diabetes mellitus without complication, without long-term current use of insulin Primary hypertension Hydrocephalus, unspecified type BMI 26.0-26.9,adult Over weight Unchanged clonazepam (ClonazePAM 0.5 mg Tab) 1 Tablets By Mouth 2 times a day Unchanged clonidine (cloNIDine 0.1 mg tab) See instructions Take one orally twice a day and 1.5 at bedtime Unchanged hydrocortisone topical (hydrocortisone Top 2.5% Crm) 1 Application Topical 3 times a day Unchanged linaclotide (Linzess 290 mcg oral capsule) 1 Capsules By Mouth Every day Unchanged lisinopril (lisinopril 5 mg Tab) 1 Tablets By Mouth Every day Unchanged memantine (memantine 10 mg Tab) 1 Tablets By Mouth 2 times a day Unchanged olanzapine (olanzapine 5 mg Tab) 1 Tablets By Mouth Every day in the am Unchanged olanzapine (olanzapine 7.5 mg oral tablet) 1 Tablets By Mouth Once a day (at bedtime) Unchanged polyethylene glycol 3350 (polyethylene glycol 3350 17 gram packet) 17 Gram By Mouth Everyday dissolve one packet in 4-8 ozs of juice or water Unchanged senna (senna 8.6 mg Tab) 2 Tablets By Mouth Every day as needed for constipation if no BMby 8pm Unchanged temazepam (temazepam 30 mg Cap) 1 Capsules By Mouth Once a day (at bedtime) as needed forfor sleep Unchanged venlafaxine (venlafaxine 37.5 mg Cap-ER) 1 Capsules By Mouth Every day in the am Allergies No Known Medication Allergies Problems Ongoing - Any problem that you are currently receiving treatment for. ADHD Conduct disorder Constipation Controlled type 2 diabetes mellitus without complication, without long-term current use of insulin Hydrocephalus Mental disability Obsessive compulsive disorder Primary hypertension Sinus tachycardia Sleep disorder breathing [facility] [id number] [id number]#[id number]:127[facility]on 09-10-4217Eoqcui Medicine Office/Clinic NoteChief Complaint follow up chronic conditions and meds check HPI Staff follow up chronic conditions and review meds questions/concerns: needs to know if to still put cream on his leg ( dr Erickson ordered) if done needs a d/c order History of Present Illness niddm CONDUCT DISORDER HX OF HYDROCEPHALUS HTN SINUS TACHYCARDIA ADHD 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 SOME URINE LEAKAGE AND BEDWETTING HX OF GLAUCOMA Review of Systems Constitutional: no fever, no chills, no sweats, no weakness Skin: no Jaundice, no rash, no lesions, nopetechiae ENMT: no ear pain, no sore throat, no congestion, no hoarseness Respiratory: no shortness of breath, no cough, no orthopnea, no wheezing Cardiovascular: no chest pain, no palpitations, no edema Gastrointestinal: no nausea, no vomiting, no diarrhea, no GI bleeding Genitourinary: no dysuria, no hematuria, no discharge, no pain Musculoskeletal: no back pain, no trauma Neurologic: no headache, no dizziness, no numbness, no weakness Psychiatric: no sleeping problems, no irritability, no mood swings/depression. Additional ROS info: Except as noted in the above Review of Systems and in the History of Present Illness all other systems have been reviewed and are negative or noncontributory. Physical Exam Vitals & Measurements HR: 132(Peripheral) RR: 20 BP: 160/86 SpO2: 94% HT: 76 in HT: 193 cm WT: 100.2 kg WT: 220.44 lb BMI: 26.9 General: alert, no acute distress Skin: warm, dry WINTER ECZEMA RESOLVED. Head: no trauma, normocephalic Neck: Trachea midline, no adenopathy, no tenderness Eye: normal conjunctiva, sclera clear ENMT: TM's clear, oral mucosa moist, no pharyngeal erythema or exudate Cardiovascular: regular rate and rhythm, normal peripheral perfusion Respiratory: Lungs CTA, respirations non labored Chest wall: no deformity. Gastrointestinal: soft, non distended, no tenderness, no guarding. Back: No tenderness, Normal ROM, Normal alignment. Extremities: no deformity, no trauma Neurological: oriented x 4, LOC appropriate for age, CN II-XII intact, motor strength equal & normal bilaterally, sensation equal & normal bilaterally, speech normal Psychiatric: cooperative, affect appropriate for age, normal judgement, normal psychiatric thoughts. Assessment/Plan NIDDM DOING WELL CHECK A1C HYDROCEPHALUS CONTROLLED NEUROLOGY ORDERING CT SCAN CONDUCT IS GOOD CHECK TESTOSTERONE LEVEL HTN CONTROLLED. RECHECK IN 3 MONTHS. 1. Controlled type 2 diabetes mellitus without complication, without long-term current use of insulin (E11.9: Type 2 diabetes mellitus without complications) Ordered: HgbA1c Testosterone Level Total 2. Conduct disorder (F91.9: Conduct disorder, unspecified) Ordered: HgbA1c Testosterone Level Total 3. Hydrocephalus (G91.9: Hydrocephalus, unspecified) Ordered: HgbA1c Testosterone Level Total 4. Primary hypertension (I10: Essential (primary) hypertension) Ordered: HgbA1c Testosterone Level Total 5. Sinus tachycardia (R00.0: Tachycardia, unspecified) Ordered: HgbA1c Testosterone Level Total 6. BMI 26.0-26.9,adult (Z68.26: Body mass index [BMI] 26.0-26.9, adult) Ordered: Body Mass Index (BMI) documented 3008F Current tobacco non-user 1036F HgbA1c Most recent diastolic blood pressure 80-89 mm Hg 3079F Most recent systolic blood pressure >= 140 mm Hg 3077F Testosterone Level Total 7. Over weight (E66.3: Overweight) Ordered: Body Mass Index (BMI) documented 3008F Current tobacco non-user 1036F HgbA1c Most recent diastolic blood pressure 80-89 mm Hg 3079F Most recent systolic blood pressure >= 140 mm Hg 3077F Testosterone Level Total Follow-up No qualifying data available Problem List/Past Medical History Ongoing ADHD Conduct disorder Constipation Controlled type 2 diabetes mellitus without complication, without long-term current use of insulin Hydrocephalus Mental disability Obsessive compulsive disorder Primary hypertension Sinus tachycardia Sleep disorder breathing Historical No qualifying data Procedure/Surgical History Other. Medications acetaminophen 325 mg Tab, 650 mg= 2 tab(s), Oral, q4hr Adderall 20 mg Tab, 20 mg= 1 tab(s), Oral, qAM ClonazePAM 0.5 mg Tab, 0.5 mg= 1 tab(s), Oral, BID cloNIDine 0.1 mg tab, See Instructions hydrocortisone Top 2.5% Crm, 1 irene, Topical, TID Linzess 290 mcg oral capsule, 290 mcg= 1 cap(s), Oral, Daily lisinopril 5 mg Tab, 5 mg= 1 tab(s), Oral, Daily memantine 10 mg Tab, 10 mg= 1 tab(s), Oral, BID olanzapine 5 mg Tab, 5 mg= 1 tab(s), Oral, Daily olanzapine 7.5 mg oral tablet, 7.5 mg= 1 tab(s), Oral, Once a day (at bedtime) polyethylene glycol 3350 17 gram packet, 17 gm, Oral, Daily senna 8.6 mg Tab, 17.2 mg= 2 tab(s), Oral, Daily temazepam 30 mg Cap, 30 mg= 1 cap(s), Oral, Once a day (at bedtime), PRN Triple Antibiotic Plus topical ointment, 1 irene, Topical, BID venlafaxine 37.5 mg Ca (more content not included)...[facility]Comment on above:Result Comment: Electronically Signed By: ITZ FONSECA, GELA Robbins\jermaine\Date and Time Signed: 08/21/22 10:47Magda [id number] [id number]:127[facility] [id number]#1.00CD:127[facility] Medicine Office/Clinic Noteon [id number] Medicine Office/Clinic NoteChief Complaint rash on legs HPI Staff Patient of dr Isaac's presents with a rash on his legs, scratched it open and made it bleed They are not allowed to do any otc treatments so covered with bandages to keep him from scratching at it onset: 3-5 days ago Patient lives in a residential and is mentally challenged. questions/concerns: none History of Present Illness La Nena Wang is a 42-year-old male who presents today for an evaluation of a rash on his right leg. He is accompanied by a female adult from his residential. The female adult reports that his work called today and stated that he was scratching the area until it was bleeding. His coworker stated that the area was warm to the touch. She notes he has obsessive thoughts and is always scratching and picking scrapes or cuts. The female adult states that Dr. Isaac does not manage all of his medications. He does follow-up with a psychiatrist. He is scheduled to see Dr. Isaac on 08/22/2022. Physical Exam Vitals & Measurements HR: 106(Peripheral) RR: 20 BP: 140/86 SpO2: 95% HT: 76 in HT: 193.04 cm WT: 100.45 kg WT: 220.99 lb BMI: 26.96 General: alert, no acute distress Extremities: no deformity, no trauma Neurological: oriented x 4, LOC appropriate for age, CN II-XII intact, motor strength equal & normal bilaterally, speech normal Skin: Excoriation noted on the patient's right leg. No other distinguishing frances except for the area erythematic. Assessment/Plan Patient will be seen in 2 weeks. 1. Rash (R21: Rash and other nonspecific skin eruption) Possibly eczema, but hard to distinguish as the patient has excoriated the area a lot. Given that, we will give a triple antibiotic and a hydrocortisone to help calm the area, but also protect it from infection. 2. Mental disability (F79: Unspecified intellectual disabilities) Patient is in a residential and there can be some challenges with understanding. His medical conditions explained in best of detail I could to the patient. 3. Controlled type 2 diabetes mellitus without complication, without long-term current use of insulin (E11.9: Type 2 diabetes mellitus without complications) Patient is going to see Dr. Isaac for full documentation of this later this month. 4. Primary hypertension (I10: Essential (primary) hypertension) Patient is at goal today. No concerns. 5. Hydrocephalus, unspecified type (G91.9: Hydrocephalus, unspecified) Again, the cause of some of the mental disability. 6. BMI 26.0-26.9,adult (Z68.26: Body mass index [BMI] 26.0-26.9, adult) BMI education given. 7. Over weight (E66.3: Overweight) ATTESTATION: Documentation services were performed after patient or guardian consented to allow Ayesha Winkler to record this visit. LUIS ENRIQUE interactive media marketing specialist and provider reviewed before signing. LUIS ENRIQUE: Gio Anderson Follow-up No qualifying data available Problem List/Past Medical History Ongoing ADHD Conduct disorder Constipation Controlled type 2 diabetes mellitus without complication, without long-term current use of insulin Hydrocephalus Mental disability Obsessive compulsive disorder Primary hypertension Sinus tachycardia Sleep disorder breathing Historical No qualifying data Procedure/Surgical History Other. Medications hydrocortisone Top 2.5% Crm, 1 irene, Topical, TID Triple Antibiotic Plus topical ointment, 1 irene, Topical, BID Allergies No Known Medication Allergies Social History Tobacco Never (less than 100 in lifetime) Tobacco Use:. Never Smokeless Tobacco Use:., 08/06/2022 Family History Unable to obtain family historyBrecksville [facility] / [facility] HospitalComment on above:Result Comment: Electronically Signed By: Aiden Erickson MD\.br\Date and Time Signed: 08/08/22 15:26 EDT\.br\Electronically Co-Signed By: Gio Anderson\.br\Date and Time Co-Signed: 08/06/22 18:16 EDTAmbulatory Visit Summaryon [id number] Visit Summary LA NENA WANG :1980 Visit Date:08/06/2022 Ambulatory Visit Instructions Your Diagnosis BMI 26.0-26.9,adult Over weight Controlled type 2 diabetes mellitus without complication, without long-term current use of insulin Primary hypertension Hydrocephalus, unspecified type Your Care Team Attending Physician - Aiden Erickson MD Primary Care Physician - ITZ FONSECA, GELA Robbins Procedures Performed Other. Discharge Vitals Heart Rate (Peripheral) 106 Respiratory Rate 20 Blood Pressure 140/86 Height 193.04 cm Height 76 in Weight 100.45 kg Weight 220.99 lb BMI 26.96 What to do next Scheduled Follow-Up Appointments Saturday 10:20 AM EDT With: ITZ FONSECA, GELA Robbins Where: [facility] Consultation Noteon [id number] Note [id number]:[address] [place], [place] [address]CBC AUTO DIFFon [id number] #0.1 103/ulNormal0.0-0.1The [facility] CenterComment on above:Performed By: #### CBC ####[facility] [address] [address]Dr.Holli ChangBasophils/100 WBC (Bld)0.8 %Normal0.2-2.0The [facility] CenterComment on above:Performed By: #### CBC ####[facility] [address] [address]Dr.Eileenlan ChangEO #0.2 103/ulNormal0.0-0.7The [facility] CenterComment on above:Performed By: #### CBC ####[facility] [address] [address]Dr.Holli ChangEosinophils/100 WBC (Bld)2.0 %Normal 0.9-7.0The [facility] CenterComment on above:Performed By: #### CBC ####[facility] [address] [place] [address]Dr.Holli Brooks Erythrocyte distribution width (RBC) [Ratio]12.4 %Ibbwav89.0-15.0The [facility] CenterComment on above:Performed By: #### CBC ####[facility] [address] [place], [place] [address]Dr.Holli ChangHematocrit (Bld) [Volume fraction]43.9 %Fnsizv40.0-54.0The [facility] CenterComment on above:Performed By: #### CBC ####[facility] [address] [address]Dr.Holli BrooksHemoglobin (Bld) [Mass/Vol]14.8 g/dL Gyteoi61.0-18.0The [facility] CenterComment on above:Performed By: #### CBC ####[facility] [address] [place] [address]Dr. Holli ChangIG #0.16 10e3/ulCritically high0.00-0.03The [facility] CenterComment on above:Performed By: #### CBC ####[facility] [address] [place], [place] [address]Dr.Holli BrooksIG %1.8 %Critically high0.0-0.5The [facility] CenterComment on above:Performed By: #### CBC ####[facility] T[address] [place], [place] [address]Dr.Holli BrooksLYMPH #1.9 103/ulNormal1.2-3.8The [facility] CenterComment on above:Performed By: #### CBC ####[facility] [address] [place], [place] [address]Dr. Eileensatinder BrooksLymphocytes/100 WBC (Bld)21.7 %Pfnfwq99.5-60.0The [facility] Comment on above:Performed By: #### CBC ####[facility] Azsew[address] [place], [place] [address]Dr.Holli BrooksMANUAL DIFF REQNONormalThe [facility] CenterComment on above:Performed By: #### CBC ####[facility] [address] [place], [place] [address]Dr.Holli BrooksH (RBC) [Entitic mass]28.9 hyDthhif62.9-34.0The [facility] CenterComment on above: Performed By: #### CBC ####[facility] [address] [place], [place] [address]Dr.Holli BrooksMCHC (RBC) [Mass/Vol]33.7 g/dLNormal 29.9-35.2The [facility] CenterComment on above:Performed By: #### CBC ####[facility] [address] [place] [address]Dr. Holli BrooksMCV (RBC) [Entitic vol]85.7 lOOcoajn83.0-94.0The [facility] Comment on above:Performed By: #### CBC ####[facility] N[address]zz[address] [place], [place] [address]Dr.Holli ToddMONO #0.4 103/ulNormal0.3-0.8 The [facility] HospitalComment on above:Performed By: #### CBC ####[facility] U[address]fe[address]ch[address] [place], [place] [address]Dr.Holli Todd Monocytes/100 WBC (Bld)4.9 %Normal1.7-12.0The [facility] CenterComment on above: Performed By: #### CBC ####[facility] Ulixwebjso[address] [place], [place] [address]Dr.Holli ToddNEUT #6.1 103/ulNormal1.4-6.5The [facility] CenterComment on above:Performed By: #### CBC ####[facility] [address]so[address]oks[address] [place], [place] [address]Dr.Holli BrooksNeutrophils/100 WBC (Bld)68.8 %Nkfvwf14.0-75.0The [facility] HospitalComment on above:Performed By: #### CBC ####[facility] D[address]gvcxvhv[address] [place], [place] [address]Dr.Holli ToddPlatelet mean volume (Bld) [Entitic vol]8.8 fLCritically low 9.5-13.5The [facility] HospitalComment on above:Performed By: #### CBC ####[facility] [address] [place], [place] [address]Dr. Holli TdjwnMKC033 103/qlZpugpc091-960Dsd [facility] CenterComment on above: Performed By: #### CBC ####[facility] [address] [place], [place] [address]Dr.Holli ChangRBC5.12 106/ulNormal4.70-6.10The [facility] CenterComment on above:Performed By: #### CBC ####[facility] [address] [place] [address]Dr.Holli BrooksWBC8.8 103/ul Normal4.0-11.0The [facility] CenterComselect specialty hospital on above:Performed By: #### CBC ####[facility] [address] [address]Dr. Holli BrooksGLYCOHEMOGLOBIN A1Con 48-07-0648YRY RECOMMENDATIONSEE [facility] HospitalComment on above:Result Comment: ADA RECOMMENDED LIMIT 4.0 - 6.0 ADA THERAPEUTIC TARGET < 7.0 ACTION SUGGESTED > 7.0Performed By: #### A1C ####[facility] [address] [place] [address]Dr. Holli BrooksGlucose [Mass/Vol]126 mg/dLNoChildren's Hospital for RehabilitationComment on above:Performed By: #### A1C ####[facility] [address] [address]DrWolfgang BrooksHbA1c (Bld) [Mass fraction]6.0 %Normal 4.5-6.2The [facility] CenterComment on above:Performed By: #### A1C ####[facility] [address] [place], [place] [address]DrWolfgang BrooksLIPID PROFILEon 08-99-5047STBX-HDL RATIO NORMSEE [facility] Comment on above:Result Comment: 3.3 - 4.4 LOW RISK 4.4 - 7.1 AVERAGE RISK 7.1 - 11.0 MODERATE RISK >11.0 HIGH RISKPerformed By: #### CMP, LIPID #### [facility] [address] [address] [address] Holli BrooksCholesterol [Mass/Vol]163 mg/dLNormal<=200The [facility] Comment on above:Performed By: #### CMP, LIPID #### [facility] [address] [address] [address] Holli Avendanoesterol in HDL [Mass/Vol]34 mg/dLCritically ssm66-03Fov [facility] CenterComment on above:Performed By: #### CMP, LIPID #### [facility] [address] [place] [address] Dr. Holli BrooksCholesterol in LDL [Mass/Vol]96.0 mg/dLTrumbull Regional Medical CenterComselect specialty hospital on above:Performed By: #### CMP, LIPID #### [facility] [address] [place] [address] Dr. Holli Correia.total/Cholesterol in HDL [Mass ratio]4.8 {ratio} NormalThe [facility] CenterComselect specialty hospital on above:Performed By: #### CMP, LIPID #### [facility] [address] [place] [address] Dr. Holli Patel NORMAL> or = 60 mg/dl - LOW CARDIOVASCULAR RISK <40 mg/dl - HIGH CARDIOVASCULAR RISKTrumbull Regional Medical CenterComselect specialty hospital on above:Performed By: #### CMP, LIPID #### [facility] [address] [place] [address] Dr. Holli Connors CALC NORMALSEE BELOWTrumbull Regional Medical CenterComselect specialty hospital on above:Result Comment: <100 mg/dl OPTIMAL 100 - 129 mg/dl NEAR OR ABOVE OPTIMAL 130 - 159 mg/dl BORDERLINE HIGH 160 - 189 mg/dl HIGH >190 mg/dl VERY HIGH Performed By: #### CMP, LIPID #### [facility] [address] [place] [address] Dr. Holli BrooksTriglyceride [Mass/Vol]165 mg/dLCritically high<=150The [facility] on above:Performed By: #### CMP, LIPID #### [facility] [address] [place] [address] Dr. Holli BrooksVLDL CALC33.0 mg/dLTrumbull Regional Medical CenterComment on above: Performed By: #### CMP, LIPID #### [facility] [address] [place] [address] Dr. Holli BrooksPROF 14(COMP METB)on 43-90-2629Pegvvjz [Mass/Vol]4.3 g/dLNormal 3.4-5.0The [facility] CenterComment on above:Performed By: #### CMP, LIPID #### [facility] [address] [address] [address] Holli BrooksAlbumin/Globulin [Mass ratio]1.2 {ratio}NormalThe [facility] CenterComment on above:Performed By: #### CMP, LIPID #### [facility] [address] [address] [address] Holli Casper [Catalytic activity/Vol]96 U/OVcwpae06-265Wfc [facility] CenterComment on above:Performed By: #### CMP, LIPID #### [facility] [address] [address] [address] Holli Blackwell [Catalytic activity/Vol]27 U/HIxplkl65-57Bul [facility] CenterComment on above:Performed By: #### CMP, LIPID #### [facility] [address] [address] [address] Holli Gardneron gap [Moles/Vol]9.8 mmol/LNormalThe [facility] CenterComment on above:Performed By: #### CMP, LIPID #### [facility] [address] [address] [address] Holli Snyder [Catalytic activity/Vol]20 U/FRwrxlq91-95Iyq [facility] on above:Performed By: #### CMP, LIPID #### [facility] [address] [address] [address] Holli BrooksBilirubin [Mass/Vol]0.4 mg/dLNormal0.2-1.0The [facility] Comment on above:Performed By: #### CMP, LIPID #### [facility] [address] [address] [address] Holli BrooksCalcium [Mass/Vol]9.4 mg/dLNormal8.5-10.1The [facility] Comment on above:Performed By: #### CMP, LIPID #### [facility] [address] [address] [address] Holli BrooksChloride [Moles/Vol]102 mmol/BXcwdda29-198Kgc [facility] Comment on above:Performed By: #### CMP, LIPID #### [facility] [address] [address] [address] Holli BrooksCO2 [Moles/Vol]30.6 mmol/MNbeteu01.0-32.0The [facility] Comment on above:Performed By: #### CMP, LIPID #### [facility] [address] [address] [address] Holli BrooksCreatinine [Mass/Vol]1.34 mg/dLCritically high0.70-1.30The [facility] CenterComment on above:Performed By: #### CMP, LIPID #### [facility] [address] [place] [address] Dr. Holli ColonGFR-AF TAIWANESE>60Normal>=60The [facility] CenterComment on above:Performed By: #### CMP, LIPID #### [facility] [address] [place] [address] Dr. Holli ColonGFR-NON AF ETTXSQZD49 mL/min/1.21c9Obwkzghfzu low>=60The [facility] CenterComment on above:Performed By: #### CMP, LIPID #### [facility] [address] [place] [address] Dr. Holli BrooksGlobulin (S) [Mass/Vol]3.7 g/dLNormalThe [facility] CenterComment on above:Performed By: #### CMP, LIPID #### [facility] [address] [place] [address] Dr. Holli BrooksGlucose [Mass/Vol]134 mg/dLCritically aysw07-205Xhb [facility] CenterComment on above:Performed By: #### CMP, LIPID #### [facility] [address] [place] [address] Dr. Holli BrooksPotassium [Moles/Vol]4.4 mmol/LNormal3.5-5.1The [facility] Comment on above:Performed By: #### CMP, LIPID #### [facility] [address] [place] [address] Dr. Yilan ChangProtein [Mass/Vol]8.0 g/dLNormal6.4-8.2[facility] Comment on above:Performed By: #### CMP, LIPID #### [facility] [address] [place] [address] Dr. Holli Prodium [Moles/Vol]138 mmol/OJrbjkb763-137Wpa [facility] Comment on above:Performed By: #### CMP, LIPID #### [facility] [address] [place] [address] Dr. Holli Contreras nitrogen [Mass/Vol]14.0 mg/dLNormal7.0-18.0The [facility] CenterComment on above:Performed By: #### CMP, LIPID #### [facility] [address] [place] [address] Dr. Holli Contreras nitrogen/Creatinine [Mass ratio]10.4 mg/mgNormalThe [facility] CenterComment on above:Performed By: #### CMP, LIPID #### [facility] [facility] [address] [place] [address] Dr. Holli Fisher AUTO DIFFon [id number] #0.1 103/ulNormal0.0-0.1Wayne HospitalComment on above:Performed By: #### CBC #### [facility] [address] [place] [address] Dr. Holli BrooksBasophils/100 WBC (Bld)0.7 %Normal0.2-2.0[facility] Comment on above:Performed By: #### CBC #### [facility] [address] [place] [address] Dr. Holli Flannery #0.2 103/ulNormal0.0-0.7The [facility] CenterComment on above: Performed By: #### CBC #### [facility] [address] [place] [address] Dr. Holli Colonosinophils/100 WBC (Bld)2.8 %Normal0.9-7.0[facility] Comment on above:Performed By: #### CBC #### [facility] [address] [place] [address] Dr. Holli Colonrythrocyte distribution width (RBC) [Ratio]12.1 %Pfpqgc39.0-15.0 The [facility] CenterComment on above:Performed By: #### CBC #### [facility] [address] [place] [address] Dr. Holli BrooksHematocrit (Bld) [Volume fraction]44.7 %Loqboz18.0-54.0The [facility] CenterComment on above:Performed By: #### CBC #### [facility] [address] [place] [address] Dr. Holli BrooksHemoglobin (Bld) [Mass/Vol]15.1 g/tMKwpccr84.0-18.0The [facility] CenterComment on above:Performed By: #### CBC #### [facility] [address] [place] [address] Dr. Holli Zavala #0.03 10e3/ulNormal0.00-0.03The [facility] CenterComment on above:Performed By: #### CBC #### [facility] [address] [place] [address] Dr. Holli Zavala %0.4 %Normal0.0-0.5The [facility] on above: Performed By: #### CBC #### [facility] [address] [place] [address] Dr. Holli DowningH #1.6 103/ulNormal1.2-3.8The [facility] CenterComment on above:Performed By: #### CBC #### [facility] [address] [place] [address] Dr. Holli Cerratomphocytes/100 WBC (Bld)21.3 %Cwsnij05.5-60.0The [facility]Com[facility] on above:Performed By: #### CBC #### [facility] [address] [place] [address] Dr. Holli BrooksMANUAL DIFF REQNONormalThe [facility] CenterComment on above: Performed By: #### CBC #### [facility] [address] [address] [address] Holli Cardenas (RBC) [Entitic mass]29.3 pxDtdifo77.9-34.0The [facility] CenterComment on above:Performed By: #### CBC #### [facility] [address] [address] [address] Holli Cardenas (RBC) [Mass/Vol]33.8 g/wCDyctvk89.9-35.2The [facility] CenterComment on above:Performed By: #### CBC #### [facility] [address] [address] [address] Holli Cardenas (RBC) [Entitic vol]86.8 bVWdxbkv04.0-94.0The [facility] CenterComment on above:Performed By: #### CBC #### [facility] [address] [place] [address] Dr. Holli Mckay #1.0 103/ulCritically high0.3-0.8The [facility] Comment on above:Performed By: #### CBC #### [facility] [address] [address] [address] Holli Toribioocytes/100 WBC (Bld)13.3 %Critically high1.7-12.0The [facility] CenterComment on above:Performed By: #### CBC #### [facility] [address] [address] [address] Holli Cortes #4.5 103/ulNormal1.4-6.5The [facility] CenterComment on above:Performed By: #### CBC #### [facility] [address] [address] [address] Holli Cruzutrophils/100 WBC (Bld)61.5 %Uusywz27.0-75.0The [facility] CenterComment on above:Performed By: #### CBC #### [facility] [address] [place] [address] Dr. Holli Jesuslet mean volume (Bld) [Entitic vol]9.5 fLNormal9.5-13.5The [facility] on above:Performed By: #### CBC #### [facility] [address] [address] [address] Holli BrooksPLT157 103/gtMixkrf984-778Xxf [facility] on above: Performed By: #### CBC #### [facility] [address] [place] [address] Dr. Holli BrooksRBC5.15 106/ulNormal4.70-6.10The [facility]Comselect [facility] on above:Performed By: #### CBC #### [facility] [address] [place] [address] Dr. Holli BrooksWBC7.4 103/ulNormal4.0-11.0The [facility] on above: Performed By: #### CBC #### [facility] [address] [place] [address] Dr. Holli BrooksCULTURE URINEon [id number] URINECulture Observations: LIGHT GROWTH OF MIXED SKIN SHEKHAR. NO POTENTIAL PATHOGENS SEEN.NormalThe [facility] on above:Performed By: #### URCX #### [facility] [address] [place] [address] Dr. Holli BrooksGLYCOHEMOGLOBIN A1Con [id number] RECOMMENDATIONSEE BELOWNormal The [facility] CenterComselect [facility] on above:Result Comment: ADA RECOMMENDED LIMIT 4.0 - 6.0 ADA THERAPEUTIC TARGET < 7.0 ACTION SUGGESTED > 7.0Performed By: #### A1C #### [facility] [address] [place] [address] Dr. Holli BrooksGlucose [Mass/Vol]123 mg/dLNormalThWilson Health on above:Performed By: #### A1C #### [facility] [address] [place] [address] Dr. Holli BrooksHbA1c (Bld) [Mass fraction]5.9 %Normal4.5-6.2The [facility] on above:Performed By: #### A1C #### [facility] [address] [place] [address] Dr. Holli Nelson PROFILEon 76-70-1137Wyvifmy [Mass/Vol]4.4 g/dLNormal3.4-5.0 The [facility] CenterComment on above:Performed By: #### LIVER ####[facility] [address] [place], [place] [address]Dr. Holli Brooks Albumin/Globulin [Mass ratio]1.2 {ratio}NormalThe [facility] CenterComment on above:Performed By: #### LIVER ####[facility] [address] [place], [place] [address]Dr. Holli BrooksALP [Catalytic activity/Vol]102 U/L Uhscpq43-245Gjc [facility] CenterComment on above:Performed By: #### LIVER ####[facility] [address] [place], [place] [address]Dr. Holli BrooksALT [Catalytic activity/Vol]27 U/CXyhjva97-14Iwb [facility] Comment on above:Performed By: #### LIVER ####[facility] [address] [place], [place] [address]Dr. Holli BrooksAST [Catalytic activity/Vol] 19 U/EYcupzu04-64Nbr [facility] CenterComment on above:Performed By: #### LIVER ####[facility] [address] [place], [place] [address]Dr. Holli BrooksBILI, CONJUGATED0.1 mg/dLNormal0.0-0.2The [facility] CenterComment on above:Performed By: #### LIVER ####[facility] [address] [place], [place] [address]Dr. Holli BrooksBilirubin [Mass/Vol]0.5 mg/dLNormal 0.2-1.0The [facility] CenterComment on above:Performed By: #### LIVER ####[facility] [address] [place], [place] [address]Dr. Holli BrooksGlobulin (S) [Mass/Vol]3.6 g/dLNormalThe [facility] CenterComment on above:Performed By: #### LIVER ####[facility] [address] [address]Dr. Holli BrooksProtein [Mass/Vol]8.0 g/dLNormal6.4-8.2 The [facility] CenterComment on above:Performed By: #### LIVER ####[facility] [address] [address]Dr. Holli Mercedes (CLEAN/CATCH) TOOL SALVAGE WORKER/MICRO IF IND.on 75-02-4091Bwlrwstub Ql (U)NegativeNormal NEGATIVEWayne HospitalComment on above:Performed By: #### UACSIND, UMICRO #### [facility] [address] [address] [address] Holli BrooksClarity (U)SL CLOUDYAbnormalCLEARThe [facility] CenterComment on above:Performed By: #### UACSTREY, UMICRO #### [facility] [address] [address] [address] Holli Seniorlor (U)LT. YELLOWNormalYELLOWWayne HospitalComment on above:Performed By: #### UACSTREY, UMICRO #### [facility] [address] [address] [address] Holli BrooksGlucose Ql (U)NegativeNormalNEGATIVEWayne HospitalComment on above:Performed By: #### UACSTREY, UMICRO #### [facility] [address] [address] [address] Holli BrooksHemoglobin Ql (U)NegativeNormalNEGKettering Health Preble Comment on above:Performed By: #### UACSTREY, UMICRO #### [facility] [address] [address] [address] Holli BrooksKetones Ql (U)15 mg/dlAbnormalNEGKettering Health Preble Comment on above:Performed By: #### UACSTREY, UMICRO #### [facility] [address] [address] [address] Holli BrooksLEUKOCYTESMODERATEAbnormalNEGATIVEWayne HospitalComment on above:Performed By: #### UACSTREY, UMICRO #### [facility] [address] [address] [address] Holli Bear Ql (U)NegativeNormalNEGATIVEThe [facility] CenterComment on above:Performed By: #### AICHA UMICRO #### [facility] [address] [address] [address] Holli BrookspH (U)6.0 [pH]Normal5-9The [facility] CenterComment on above: Performed By: #### AICHA UMICRO #### [facility] [address] [address] [address] Holli BrooksSPEC GRAVITY1.715Eqssvw0.005-<=1.025The [facility] CenterComment on above:Performed By: #### AICHA UMICRO #### [facility] [address] [address] [address] Holli Mercedes PROTEINNegativeNormalNEGATIVE/ TRACEThe [facility] Comment on above:Performed By: #### AICHA UMICRO #### [facility] [address] [address] [address] Holli Vincent MICRO INDINDICATEDTrumbull Regional Medical CenterComment on above: Performed By: #### AICHA UMICRO #### [facility] [address] [address] [address] Holli Rollins Qn (U)0.2 {Nata'U}/dLNormal0.2 - 1.0The [facility] CenterComment on above:Performed By: #### AICHA UMICRO #### [facility] [address] [address] [address] Holli Saab MICROSCOPIC ONLYon 04-38-1290IQHLUSTGQGYVYGwkejbtsQEIA SEEN The [facility] CenterComment on above:Performed By: #### AICHA UMICRO ####[facility] [address] [address]Dr. Holli Sims identified Cx Nom (U)INDICATEDTrumbull Regional Medical Center Comment on above:Performed By: #### AICHA UMICRO ####[facility] [address] [address]Dr. Holli ToddCASTNONE SEEN NormalNONE SEENThe [facility] CenterComment on above:Performed By: #### AICHA UMICRO ####[facility] [address] [address]Dr. Holli BrooksCrystals LM Nom (Urine sed)SEENAbnormalNONE SEENThe [facility] CenterComselect specialty hospital on above:Performed By: #### AICHA UMICRO ####[facility] [address] [address]Dr. Holli Brooks Epithelial cells LM Ql (Urine sed)FEWAbnormalNONE SEEN /RAREThe [facility] CenterComselect specialty hospital on above:Performed By: #### AICHA UMICRO ####[facility] [address] [address]Dr. Holli Brooks MUCOUSMODERATEAbnormalNONE SEENThe [facility] CenterComselect specialty hospital on above:Performed By: #### AICHA UMICRO ####[facility] [address] [address]Dr. Holli BrooksNqflcJHK8-9Rmebxf5-7Amc [facility] Comment on above:Performed By: #### AICHA UMICRO ####[facility] [address] [address]Dr. Holli BrooksZrnqpLQS19-37 AbnormalNONE SEENThe [facility] CenterComselect specialty hospital on above:Performed By: #### AICHA UMICRO ####[facility] [address] [address]Dr. Holli BrooksAnesthesia Attestationon [id number] Authentication Interface Message TextAnesthesia Attestation ATTESTATION OF INFORMED CONSENT FOR ANESTHESIA Anesthesia options were discussed with the patient and/or legal data entry representative. The risks, benefits and alternatives were reviewed. Questions regarding anesthesia were answered. Patient and/or legal data entry representative knows such anesthetics and procedures may be performed by Resident physicians, Certified Anesthesiologist Assistants, or Certified Nurse Anesthetists under the supervision of a physician. The patient /or the patient's legal data entry representative agree with the plan for anesthesia.Normal The MetroBaitianshi SystemAnesthesia Postprocedure Evaluationon 02-13-2021 Motor Mechanic Authentication Interface Message TextAnesthesia Postoperative Assessment: Vital Signs (most recent): BP 129/77 (BP Location: right arm) Pulse 114 Temp 36.1 ???C (96.9 ???F) (Temporal) Resp 19 Wt 223 lb (101.2 kg) SpO2 94% BMI 27.14 kg/m??? Anesthesia Post Evaluation Patient location during evaluation: PACU Patient participation: complete - patient participated Level of consciousness: awake and alert Pain score: 0 Pain management: adequate Airway patency: patent Cardiovascular status: acceptable, blood pressure returned to baseline, hemodynamically stable and stable Respiratory status: acceptable and Patient breathing comfortably on room air Hydration status: normal PONV: No nausea/vomiting reported I was personally responsible for performing the postop evaluation. ANESTHESIA COMPLICATIONS: No complications documented.NormalThe MetroBaitianshi SystemAnesthesia Transfer Of Careon 04-23-7834Yqewsuwczbtvj Authentication Interface Message TextPatient taken to PACU. Patient was drowsy, comfortable and stable on arrival. Anesthesia Transfer of Care Note Past Medical History: Past Medical History: Diagnosis Date * ADHD * Conduct disorder * Diabetes mellitus (HCC) * HTN (hypertension) * Intellectual disability * Intermittent explosive disorder * Mixed obsessional thoughts and acts * Obesity * Tachycardia Sleep Apnea/Positive STOP-BANG: Yes Problem List: Patient Active Problem List: Dental caries [K02.9] Tachycardia [R00.0] Mixed obsessional thoughts and acts [F42.2] Intermittent explosive disorder [F63.81] Intellectual disability [F79] HTN (hypertension) [I10] Diabetes mellitus (HCC) [E11.9] Conduct disorder [F91.9] ADHD [F90.9] Obesity [E66.9] Past Surgical History: Review of patient's past surgical history indicates: 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 Basic Operating Room Facts: Surgeon(s): Blaze Juárez DDS Anesthesiologist: Jason Frye MD CAA: Jonathan Schuler CAA Title Inspector: Silas Avitia MD DENTAL RESTORATIONS (Bilateral ) EXTRACTION, TOOTH (Bilateral ) Intraoperative Events: No acute event ASA: 2 EBL: Not documented Urine Not documented Lactated Ringers and NaCl 0.9%: Fluid Totals (Filter: LR and NaCl 0.9% Medications Shown) Medication Calculated Total Lactated Ringers 1,100 mL / 2 bags Cell Saver: Not documented Blood Volume Values: Blood Products None MTP Blood: MTP PRBC: Not documented MTP FFP: Not documented MTP PLT: Not documented MTP Cryo: Not documented MTP Whole Blood: Not documented Current Vasoactive Medications: {Vasoactive Medications: None Lines, Drains, Airways Peripheral IV Access: 02/13/21740 20 gauge Anterior;Left Forearm (Active) Site Assessment WNL;Dressing intact 02/13/21740 Infusion Status Port #1 Infusing 02/13/21740 Airway Insertion Details [REMOVED] Advanced Airway: ETT, Nasal;Cuffed #7 (Removed) 02/13/21 0750 Pre-Oxygenation/ Induction: Mask Rapid Sequence Induction?: Mask Ventilation: Easy Blade size: Mac 4 Visualization: Grade 3 Airway Type: ETT, Nasal;Cuffed Airway Size: #7 Post Insertion Assessment: Confirmation: Equal bilateral breath sounds, CO2 confirmed # Attempts >1: 3 Special Equipment: Isaura forceps;Glidescope Present on Admission?: Previously Removed / Not Present: Removal Reason: Not Removed at Discharge: Removed 02/13/21903 Location (cm) 28 02/13/21805 Measured from: Naris 02/13/21805 Secured via: Taped 02/13/21805 Site Assessment WNL 02/13/21805 All non-working IVs have been removed: Yes Laboratory Data: CBC (last 3 years, up to 5 values) None Basic Metabolic Panel None Basic Metabolic Panel None No results found for: INR No result for BNP LFT's (last 3 years, up to 5 values) None Arterial Blood Gases None Hand off Completed: Yes 1. The patient was identified. 2. Pertinent medical history was relayed. 3. A brief discussion was had about any pertinent surgical/ procedural issues. 4. Intraoperative/ anesthetic management issue and concerns were discussed. 5. Plans for the early post-operative period relayed. 6. An opportunity for questions and acknowledgment of understanding of the report was received. Silas Avitia MDHolzer Hospital Attestationon 02-13-2021 Motor Mechanic Authentication Interface Message TextBlood Attestation ATTESTATION OF INFORMED CONSENT FOR BLOOD The transfusion of blood and/or blood components were discussed with the patient and/or legal data entry representative. The risks, benefits and alternatives were reviewed. Questions regarding blood transfusions were answered. The patient /or the patient's legal data entry representative agree with the plan for transfusion of blood and/or blood components.NormalThe Regional Hospital Of JacksonBaitianshi SystemBrief Operative Noteon [id number] Authentication Interface Message TextBrief Operative Note PHE OR 3 Jared Wang 40 year old male Surgical Contact Serial Number: [id number] Preoperative Diagnosis: Dental caries [K02.9] Postoperative Diagnosis: * Dental caries [K02.9] Procedures: Full Mouth Series 13742 Exam 36019 Muslim # 32 / 83242 Extractions # 3,4,J Alveoloplasty Upper Right 31563 Surgical Operating Room Data Unavailable Preoperative Diagnosis(es): Encounter for laboratory testing for severe acute respiratory syndrome coronavirus 2 (SARS-CoV-2) [[id number]] Postoperative Diagnosis(es): SAME @ENCORD@ Surgeon: Dr. Multani Peer Support Specialist Surgeon: Roderick Esparza DDS Anesthesia: General- Nasal ETT Estimated Blood Loss: 500 cc IV Fluids: 500 cc Urine Output: Not measured. Findings: The patient was brought to the operating room and placed in the supine position on the operating room table. Following satisfactory induction of GA. The patient was intubated with a nasal endotracheal tube. He was then prepped and drapped in the usual sterile fashion for dental procedures. Full Mouth Series were then taken and an oral examination was completed. A moistened throat pack was then placed. Full mouth scaling and root planing was then performed. The radiographs were examined by the attending and the resident and used in conjunction with th oral exam to formulate a treatment plan. The restorative aspect of the treatment plan included the following Amalgam # 32 These restorations were placed following excavation of the carious lesions on each tooth. The surgical aspect of the treatment plan included the following extraction(s) and/or root removal: Teeth # 3,4, J ,3.0 chromic gut sutures were placed in all extraction sites. The remaining dentition was then polished with prophy paste. The oral cavity was irrigated and suctioned then the throat pack was removed. Fluoride treament was placed on the remaining dentition. The patient tolerated the procedure well was extubated in the operating room, and taken to the PACU in stable condition. Complications: None Status at end of surgery: Stable Medications: Outpatient Medications Marked as Taking for the 02/13/21 encounter (Hospital Encounter) Medication Sig Dispense Refill * ibuprofen (MOTRIN) 600 MG tablet Take 1 Tablet by mouth every 6 hours as needed for Pain for up to 7 days. 28 Tablet 0 * amoxicillin (AMOXIL) 500 MG capsule Take 1 Capsule by mouth 3 times daily for 7 days. 21 Capsule 0 * lisinopril (ZESTRIL) 5 MG tablet Take 5 mg by mouth daily. * temazepam (RESTORIL) 30 MG capsule Take 30 mg by mouth at bedtime. * venlafaxine (EFFEXOR XR) 37.5 MG ER capsule Take 37.5 mg by mouth daily. * clonazePAM (KlonoPIN) 0.5 MG tablet Take 0.5 mg by mouth 2 times daily. * cloNIDine (CATAPRES) 0.1 MG tablet Take 0.1 mg by mouth 2 times daily. 1.5 tablets at bedtime * Linzess 290 MCG CAPS capsule Take 290 mcg by mouth daily. Dictated by: Roderick Esparza DDS: I was present for the critical portions of the procedure. Roderick Esparza DDS 02/13/2021 8:50 PM Surgeon(s): Surgeon(s): Blaze Juárez DDS Staff: Bill Checker Nurse: Shruthi Fraga RN Pageant Director: Roderick Esparza DDS Anesthesia: General - Nasal ETT Anesthesiologist: Jason Frye MD CAA: Jonathna Schuler CAA Title Inspector: Silas Avitia MD Specimen(s): * No specimens in log Estimated Blood Loss: 500 cc Lines/Drains: * No LDAs found Temporarily Retained Foreign Object: NO Location: Object: Anticipated removal date: Findings: Normal Complications:NONE Status at end of surgery:Stable Activity:Ad Jasmin Surgical wound class:No wound Patient Class: Outpatient Surgery. Is this a patient scheduled as an outpatient that needs to be admitted as an inpatient? NO Dr. Multani was present in the OR for the critical portion of the procedure and procedure sign-out. Signed by Roderick Esparza DDS 02/13/2021 8:32 [facility] HOSPITALOpiatalk Motor Mechanic Authentication Interface Message TextBrief Operative Note PHE OR 3 Jared Wang 40 year old male Surgical Contact Serial Number: [id number] Preoperative Diagnosis: Dental caries [K02.9] Postoperative Diagnosis: * Dental caries [K02.9] Procedures: No data filed Surgeon(s): Surgeon(s): Blaze Juárez DDS Staff: Bill Checker Nurse: Shruthi Fraga RN Pageant Director: Roderick Esparza DDS Anesthesia: General Anesthesiologist: Jason Frye MD CAA: Jonathan Schuler CAA Title Inspector: Silas Avitia MD Specimen(s): * No specimens in log * Estimated Blood Loss: less than 5 cc Lines/Drains: Peripheral IV Access: 02/13/21740 20 gauge Anterior;Left Forearm (Active) Site Assessment WNL 02/13/21921 Infusion Status Port #1 Infusing 02/13/21921 Temporarily Retained Foreign Object: no Location: Object: Anticipated removal date: Findings: Normal Complications: None Status at end of surgery: Stable Activity: {POSTOPERATIVE ACTIVITY:[id number]:: Surgical wound class: No wound. Patient Class: Outpatient Surgery. Is this a patient scheduled as an outpatient that needs to be admitted as an inpatient? No Dr. Multani was present in the OR for the critical portion of the procedure and procedure sign-out. Signed by Roderick Esparza DDS 02/13/2021 9:57 [facility] CENTERLeadPages Authentication Interface Message TextBrief Operative Note PHE OR 3 Jared Wang 40 year old male Surgical Contact Serial Number: [id number] Preoperative Diagnosis: Dental caries [K02.9] Tachycardia [R00.0] Mixed obsessional thoughts and acts [F42.2] Intermittent explosive disorder [F63.81] Intellectual disability [F79] HTN (hypertension) [I10] Diabetes mellitus (HCC) [E11.9] Conduct disorder [F91.9] ADHD [F90.9] Obesity [E66.9] Postoperative Diagnosis: SAME * Dental caries [K02.9] Procedures: Full mouth series 62642 Exam 95237 Ext 80255 Muslim 13337 Cleaning and polishing 99034 Surgeon(s): Surgeon(s): Blaze Juárez DDS Staff: Bill Checker Nurse: Shruthi Fraga RN Anesthesia: General Anesthesiologist: Jason Frye MD Anesthesia Staff: Silas Avitia MD Specimen(s): * No specimens in log * Estimated Blood Loss: less than 5 cc Lines/Drains: * No LDAs found Temporarily Retained Foreign Object: No Location: Object: Anticipated removal date: Findings: Normal Complications: None Status at end of surgery: Stable Activity: Ad Jasmin Surgical wound class: No wound. Patient Class: Outpatient Surgery. Is this a patient scheduled as an outpatient that needs to be admitted as an inpatient? No Dr. Multani was present in the OR for the critical portion of the procedure and procedure sign-out. Signed by Roderick Esparza DDS 02/13/2021 7:11 AMNormalThe White Plains HospitalPurple Binder SystemH AND Lloyd [id number] Authentication Interface Message TextNormalThe O[facility]o Health SystemOP Noteon [id number] Authentication Interface Message TextBrief Operative Note PHE OR 3 Jared Wang 40 year old male Surgical Contact Serial Number: [id number] Preoperative Diagnosis: Dental caries [K02.9] Postoperative Diagnosis: * Dental caries [K02.9] Surgical Case Number Data Unavailable Operating Room Data Unavailable Preoperative Diagnosis(es): Encounter for laboratory testing for severe acute respiratory syndrome coronavirus 2 (SARS-CoV-2) [[id number]] Postoperative Diagnosis(es): Same @ENCORD@ Surgeon: Dr. Multani Peer Support Specialist Surgeon: Roderick Esparza Anesthesia: General- Oral ETT Estimated Blood Loss: 500cc IV Fluids: 500 cc Urine Output: Not measured. Findings: The patient was brought to the operating room and placed in the supine position on the operating room table. Following satisfactory induction of GA. The patient was intubated with a nasal endotracheal tube. He was then prepped and drapped in the usual sterile fashion for dental procedures. Full mouth series 70 320 were then taken and an oral examination was completed [id number]. A moistened throat pack was then placed. Full mouth scaling and root planing was then performed. The radiographs were examined by the attending and the resident and used in conjunction with th oral exam to formulate a treatment plan. The restorative aspect of the treatment plan included the following # 32 DO These restorations were placed following excavation of the carious lesions on each tooth. The surgical aspect of the treatment plan included the following extraction(s) and/or root removal: Teeth # 3 surgical, # 4 ext, # J ext ,and alveoloplasty upper right, 3.0 chromic gut sutures were placed in all extraction sites. The remaining dentition was then polished with prophy paste. The oral cavity was irrigated and suctioned then the throat pack was removed. Fluoride treament was placed on the remaining dentition. The patient tolerated the procedure well was extubated in the operating room, and taken to the PACU in stable condition. Complications: None Status at end of surgery: Stable Medications: Outpatient Medications Marked as Taking for the 02/13/21 encounter (Hospital Encounter) Medication Sig Dispense Refill * lisinopril (ZESTRIL) 5 MG tablet Take 5 mg by mouth daily. * temazepam (RESTORIL) 30 MG capsule Take 30 mg by mouth at bedtime. * venlafaxine (EFFEXOR XR) 37.5 MG ER capsule Take 37.5 mg by mouth daily. * clonazePAM (KlonoPIN) 0.5 MG tablet Take 0.5 mg by mouth 2 times daily. * cloNIDine (CATAPRES) 0.1 MG tablet Take 0.1 mg by mouth 2 times daily. 1.5 tablets at bedtime * Linzess 290 MCG CAPS capsule Take 290 mcg by mouth daily. Dictated by: Roderick Esparza DDS: Dr. Juárez was present for the critical portions of the procedure. Roderick Esparza DDS 02/13/2021 9:02 AMNormalThe [facility] SystemProgress Noteson [id number] Authentication Interface Message Text----- Saturday, February 13, 2021 at 8:53:35 AM ----- ----- Provider: [id number] Yazmin Multani DDS -- Clinic: [facility] ----- Dr. Juárez's notes pt is ready for tx teeth 2,3 extracted, badly decayed and damaged with pa lesion over 3 ext 3 was surgical, separation done, bone removed, a big Granulation tissue was curetted out. bone in that area had to be cut and smoothened, alveo done. denisha on 32, as the old one catches, and has deep hole lingually. soft black dentin was found under. ext J, because it was deep, not on occlusion, and crowded with 14, had a lot of calculus around 14 its side. Brief Operative Note PHE OR 3 Jared aWng 40 year old male Surgical Contact Serial Number: [id number] Preoperative Diagnosis: Dental caries [K02.9] Postoperative Diagnosis: * Dental caries [K02.9] Surgical Case Number Data Unavailable Operating Room Data Unavailable Preoperative Diagnosis(es): Encounter for laboratory testing for severe acute respiratory syndrome coronavirus 2 (SARS-CoV-2) [[id number]] Postoperative Diagnosis(es): Same @ENCORD@ Surgeon: Dr. Multani Peer Support Specialist Surgeon: Roderick Esparza Anesthesia: General- Oral ETT Estimated Blood Loss: 500cc IV Fluids: 500 cc Urine Output: Not measured. Findings: The patient was brought to the operating room and placed in the supine position on the operating room table. Following satisfactory induction of GA. The patient was intubated with a nasal endotracheal tube. He was then prepped and drapped in the usual sterile fashion for dental procedures. Full mouth series 70 320 were then taken and an oral examination was completed [id number]. A moistened throat pack was then placed. Full mouth scaling and root planing was then performed. The radiographs were examined by the attending and the resident and used in conjunction with th oral exam to formulate a treatment plan. The restorative aspect of the treatment plan included the following # 32 DO These restorations were placed following excavation of the carious lesions on each tooth. The surgical aspect of the treatment plan included the following extraction(s) and/or root removal: Teeth # 3 surgical, # 4 ext, # J ext ,and alveoloplasty upper right, 3.0 chromic gut sutures were placed in all extraction sites. The remaining dentition was then polished with prophy paste. The oral cavity was irrigated and suctioned then the throat pack was removed. Fluoride treament was placed on the remaining dentition. The patient tolerated the procedure well was extubated in the operating room, and taken to the PACU in stable condition. Complications: None Status at end of surgery: Stable Medications: Outpatient Medications Marked as Taking for the 02/13/21 encounter (Hospital Encounter) Medication Sig Dispense Refill * lisinopril (ZESTRIL) 5 MG tablet Take 5 mg by mouth daily. * temazepam (RESTORIL) 30 MG capsule Take 30 mg by mouth at bedtime. * venlafaxine (EFFEXOR XR) 37.5 MG ER capsule Take 37.5 mg by mouth daily. * clonazePAM (KlonoPIN) 0.5 MG tablet Take 0.5 mg by mouth 2 times daily. * cloNIDine (CATAPRES) 0.1 MG tablet Take 0.1 mg by mouth 2 times daily. 1.5 tablets at bedtime * Linzess 290 MCG CAPS capsule Take 290 mcg by mouth daily. Dictated by: Roderick Esparza DDS: Dr. Juárez was present for the critical portions of the procedure. 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 Multani. Took amoxicillin this AM Physical Exam Airway Mallampati: I TM distance: Adequate Micrognathia: Not present Jaw opening: Adequate Neck flexion: Adequate Dental Dentition: poor dention. Pulmonary - pulmonary exam normal Comment: Chest clear to auscultation bilaterally Cardiovascular - cardiovascular exam normal Comment: RRR with S1S2; no murmurs, gallops, or rubs Neuro - neurological exam normal Comment: Awake, alert, oriented, No motor deficits and sensation grossly intact Plan Anesthesia plan: general (ETT) Medications may include (but not limited to): anxiolytics, narcotic analgesics, IV hypnotics, neuromuscular blockers and inhalational analgesics Pain management: May include (but not limited to): IV, oral, anxiolytics, narcotic analgesics, local anesthetic and nerve block Anesthesia risks / alternatives discussed pre-op Questions answered / anesthesia plan accepted Past medical history, surgical history, allergies, and medications reviewed. Pertinent laboratory tests, EKG, imaging, and consults reviewed. I have reviewed the entire pre-surgical evaluation telephone history and/ or history and physical, and I have personally seen and evaluated the patient, repeating albright portions of the history and physical examination.NormalThe [facility] System Patient Instructionson [id number] Authentication Interface Message TextOn the morning of your surgery please take only the following medications, with a small sip of water: * Namenda XR 28 MG CP24 * OLANZapine (ZyPREXA) 7.5 MG tablet * venlafaxine (EFFEXOR XR) 37.5 MG ER capsule * clonazePAM (KlonoPIN) 0.5 MG tablet * cloNIDine (CATAPRES) 0.1 MG tablet * Nuedexta 20-10 MG CAPS capsule * Linzess 290 MCG CAPS capsule Do not take any Aspirin 7 days before the surgery. Do not take any Ibuprofen, Aleve, Advil, Diclofenac, Meloxicam, Naproxen, or Motrin or any other NSAIDS 3 days before surgery. May take over the counter Acetaminophen (Tylenol) as needed for pain. Please hold all Vitamin E, [place] 3, fish oil and herbal supplements for 1 week prior to surgeryNormMercy Health Obeo Health SystemTelephone Encounteron 02-06-2021 Motor Mechanic Authentication Interface Message TextPt does not need covid testing for surgery . Covid vaccine completed. MODERNA 04/04/2020 AND 05/02/2020[facility] Laser CenterBaitianshi SystemTranscription Authentication Interface Message TextInformed Consent for surgery AND Anesthesia consent obtained and scanned into EPIC. Scheduled for surgery 02/13/2021.NormalThe Regional Hospital Of JacksonBaitianshi [facility] HospitalPS Appt H AND Lloyd [id number] Authentication Interface Message TextDental Consult The Dental Department was asked to consult on this patient by { the Attending physician for the patient care is Dr. Sasha Montes, and the Resident assigned to his care is Roderick Esparza Chief Complaint Patient presents with * Pre-surgical Evaluation 40 year old was admited for reports the following symptoms: History of present illness: Past Medical History: Diagnosis Date * ADHD * Conduct disorder * Diabetes mellitus (HCC) * HTN (hypertension) * Intellectual disability * Intermittent explosive disorder * Mixed obsessional thoughts and acts * Obesity * Tachycardia No current outpatient medications on file. Not on File Clinical Exam Gingivitis, broken teeth #3,4 Radiographic Examination will be done in the OR Differential Diagnosis Gingivitis, broken teeth # 3,4 Treatment Cleaning , extractions # 3,4 Recommendations treatment under general anesthesia Follow-up Reuben PfeifferBlue Ridge Regional HospitalMediConnect Global ([facility])Progress Noteson 02-03-2021 Motor Mechanic Authentication Interface Message TextDental Consult The Dental Department was asked to consult on this patient by , the Attending physician for the patient care is DR. Sasha Montes, and the Resident assigned to his care is Roderick Esparza No chief complaint on file. 40 year old was admited for reports the following symptoms: History of present illness: Past Medical History: Diagnosis Date * ADHD * Conduct disorder * Diabetes mellitus (HCC) * HTN (hypertension) * Intellectual disability * Intermittent explosive disorder * Mixed obsessional thoughts and acts * Obesity * Tachycardia No current outpatient medications on file. Not on File Clinical Exam Gingivitis, broken teeth # 3,4 Radiographic Examination ful mouth series will be done in the OR Differential Diagnosis gingivitis, broken teeth # 3,4 Treatment cleaning, extractions # 3,4 Recommendations Follow-up Roderick Esparza DDPhysicians Hospital in Anadarko – AnadarkoDental CorpEncompass Rehabilitation Hospital of Western MassachusettsBaitianshi SystemTranscription Authentication Interface Message TextPatient left without being seen by me GH immediately notified but patient did not return to visit Siddhartha HuddlestonBlue Ridge Regional HospitalWooster Community Hospital SystemProgress Noteson 12-15-2020 Motor Mechanic Authentication Interface Message Textattempt made to contact caregiver - or guardinan - no answer/ left message requesting a call back ----- November at 10:23:43 AM ----- ----- Provider: Gomez Segal Specialist -- Clinic: [place] -----NormalThe Regional Hospital Of JacksonBaitianshi System Vital Signs Date TimeVital SignValuePerforming MnfhvpwekYstglwwy83-23-1849 14:04-0400Body ujalke503.5 cmJonathan Keller MD Work Phone: [facility] HospitalElliptic Technologies Defchp66-09-8895 14:04-0400Body mass index (BMI) [Ratio]25.12 kg/s7RbdpsgmJonathan Keller MD Work Phone: [facility] Xiygxx54-93-5155 14:04-0400Body norcje90.17 kgJonathan Keller MD Work Phone: [facility] Claggn69-78-4491 14:04-0400Diastolic blood emoppodr18 mm[Hg]Jonathan Keller MD Work Phone: [facility] Healthcareexurbe cosmetics10-15-2025 14:04-0400Heart rate 108 /minJonathan Keller MD Work Phone: [facility] Bqinqi17-07-4831 14:04-0400Systolic blood szsfottt993 mm[Hg]Jonathan Keller MD Work Phone: [facility] Gvzpkm53-68-4075 10:45-0400Body vuhkns119.5 cmMaria Teresa Del Rio CAR SHAKEOUT OPERATOR-REFRIGERATOR ASSEMBLER Work Phone: [facility] HospitalXelerated10-13-2025 10:45-0400Body mass index (BMI) [Ratio]25.15 kg/m2Maria Teresa Del Rio CAR SHAKEOUT OPERATOR-REFRIGERATOR ASSEMBLER Work Phone: [facility] HospitalEll[facility] Qoyzgp49-90-2574 10:45-0400Body dbwdzrpupzi73.39 [degF]Maria Teresa Krotzer CAR SHAKEOUT OPERATOR-REFRIGERATOR ASSEMBLER Work Phone: [facility] Baitianshi Hccaci35-80-9114 10:45-0400Body euarqi76.26 kgMaria Teresa Del Rio CAR SHAKEOUT OPERATOR-REFRIGERATOR ASSEMBLER Work Phone: [facility] Baitianshi Ijhvmy26-82-5521 10:45-0400Diastolic blood hbaktzqo37 mm[Hg]Maria Teresa Hillzer CAR SHAKEOUT OPERATOR-REFRIGERATOR ASSEMBLER Work Phone: [facility]10-13-2025 10:45-0400Heart rate 102 /minMaria Teresa Hillzer CAR SHAKEOUT OPERATOR-REFRIGERATOR ASSEMBLER Work Phone: [facility]10-13-2025 10:45-0400 Respiratory rate20 /minMaria Teresa Hillzer CAR SHAKEOUT OPERATOR-REFRIGERATOR ASSEMBLER Work Phone: [facility]10-13-2025 10:45-1966TjK0% (BldA) [Mass fraction]97 %Maria Teresa Hillzer CAR SHAKEOUT OPERATOR-REFRIGERATOR ASSEMBLER Work Phone: [facility]10-13-2025 10:45-0400Systolic blood lnyorraa728 mm[Hg]Maria Teresa Del Rio CAR SHAKEOUT OPERATOR-REFRIGERATOR ASSEMBLER Work Phone: [facility]09-22-2025 10:52-0400Body corvni148.58 cmValeridee Valentine DIAMOND POWDER TECHNICIAN-C Work Phone: [facility]09-22-2025 10:52-0400 Body mass index (BMI) [Ratio]23.7 kg/r6Ojbadmh Valentine DIAMOND POWDER TECHNICIAN-C Work Phone: [facility]09-22-2025 10:52-0400 Body jkzlne94.83 kgLitarie Valentine DIAMOND POWDER TECHNICIAN-C Work Phone: [facility]09-22-2025 10:52-0400 Diastolic blood mm[Hg]Ruben Valentine DIAMOND POWDER TECHNICIAN-C Work Phone: [facility]09-22-2025 10:52-0400 Heart umaa922 /minRuben Valentine DIAMOND POWDER TECHNICIAN-C Work Phone: [facility]09-22-2025 10:52-0400 SaO2% (BldA) [Mass fraction]97 %Ruben Valentine DIAMOND POWDER TECHNICIAN-C Work Phone: [facility]09-22-2025 10:52-0400 Systolic blood ltwnqiyi680 mm[Hg]Ruben Valentine DIAMOND POWDER TECHNICIAN-C Work Phone: [facility]07-22-2025 10:01-0400 Body zfsdag704.5 cmMaria Teresa Castillootzer CAR SHAKEOUT OPERATOR-REFRIGERATOR ASSEMBLER Work Phone: [facility] Baitianshi Ukcjxx93-69-7078 10:01-0400Body mass index (BMI) [Ratio]25.72 kg/m2Maria Teresa Castillootzer CAR SHAKEOUT OPERATOR-REFRIGERATOR ASSEMBLER Work Phone: [facility] Fqymze30-96-3208 10:01-0400Body vlbzkqkehyh62.81 [degF]Maria Teresa Castillootzer CAR SHAKEOUT OPERATOR-REFRIGERATOR ASSEMBLER Work Phone: [facility] HospitalElliptic Technologies Eqoeil78-49-1152 10:01-0400Body owghmx79.35 kgMaria Teresa Castillootzer CAR SHAKEOUT OPERATOR-REFRIGERATOR ASSEMBLER Work Phone: [facility] Kqddzg65-58-2008 10:01-0400Diastolic blood iamgidga62 mm[Hg]Maria Teresa Castillootzer CAR SHAKEOUT OPERATOR-REFRIGERATOR ASSEMBLER Work Phone: [facility] HospitalEll[facility] Technologies Dexjof30-92-8972 10:01-0400Heart rate 108 /minStepanle Jonathanotzer CAR SHAKEOUT OPERATOR-REFRIGERATOR ASSEMBLER Work Phone: [facility] HospitalEll[facility] Sbhufe81-78-2341 10:01-0400 Respiratory rate18 /minStepanle Jonathanotzer CAR SHAKEOUT OPERATOR-REFRIGERATOR ASSEMBLER Work Phone: [facility] Kqytqx31-42-6664 10:01-4023JaA1% (BldA) [Mass fraction]98 %Maria Teresa Castillootzer CAR SHAKEOUT OPERATOR-REFRIGERATOR ASSEMBLER Work Phone: [facility]07-22-2025 10:01-0400Systolic blood oqlcxzut346 mm[Hg]Maria Teresa Del Rio APRN-REFRIGERATOR ASSEMBLER Work Phone: [facility]07-10-2025 14:33-0400Body cmSteven Rusher DPM Work Phone: [facility] CenterQkcdapwemz04-35-2401 14:33-0400Body mass index (BMI) [Ratio]24.59 kg/f9Avkcni Rusher DPM Work Phone: [facility] CenterApugyzshkz32-54-3083 14:33-0400Body lhfbje09.63 kgSteven Rusher DPM Work Phone: [facility] CenterZoxpwiyfcn53-34-7199 13:13-0400Body jteffr191.5 cmLogan Cantor PA Work Phone: [facility]04-09-2025 13:13-0400Body mass index (BMI) [Ratio]25.87 kg/j6AsdbpjtyLogan ABDULLAHI Work Phone: [facility]04-09-2025 13:13-0400Body haxqcw44.89 kgLogan ABDULLAHI Work Phone: [facility]04-09-2025 13:13-0400Diastolic blood mm[Hg]Logan ABDULLAHI Work Phone: [facility]04-09-2025 13:13-0400Heart rate 105 /minLogan Cantor PA Work Phone: [facility]04-09-2025 13:13-0400Systolic blood mm[Hg]Logan Cantor PA Work Phone: [facility]04-01-2025 15:01-0400Body cmSteven Rusher DPM Work Phone: [facility] CenterFeckgyhqga62-48-0421 15:01-0400Body mass index (BMI) [Ratio]24.64 kg/a8Dkgicb Manisha DPM Work Phone: [facility] CenterMorrshwaqa33-43-7392 15:01-0400Body .81 kgSteven Manisha DPM Work Phone: [facility] CenterKtprcrzofh61-35-7882 09:13-0500Body izjzar955.5 cmValeshahzad Valentine CAR SHAKEOUT OPERATOR-REFRIGERATOR ASSEMBLER Work Phone: [facility]01-23-2025 09:13-0500Body mass index (BMI) [Ratio]25.97 kg/r1GfxcmsjRuben Valentine CAR SHAKEOUT OPERATOR-REFRIGERATOR ASSEMBLER Work Phone: [facility]01-23-2025 09:13-0500Body fatswnnyjqg38.9 [degF]Ruben Valentine CAR SHAKEOUT OPERATOR-REFRIGERATOR ASSEMBLER Work Phone: [facility]01-23-2025 09:13-0500Body .26 kgRuben Valentine CAR SHAKEOUT OPERATOR-REFRIGERATOR ASSEMBLER Work Phone: [facility]01-23-2025 09:13-0500Diastolic blood ojysiknu96 mm[Hg]Ruben Valentine CAR SHAKEOUT OPERATOR-REFRIGERATOR ASSEMBLER Work Phone: [facility]01-23-2025 09:13-0500Heart rate 126 /minRuben Valentine CAR SHAKEOUT OPERATOR-REFRIGERATOR ASSEMBLER Work Phone: [facility]01-23-2025 09:13-0500 Respiratory rate18 /minRuben Valentine CAR SHAKEOUT OPERATOR-REFRIGERATOR ASSEMBLER Work Phone: [facility]01-23-2025 09:13-6753RkY7% (BldA) [Mass fraction]96 %Ruben Valentine CAR SHAKEOUT OPERATOR-REFRIGERATOR ASSEMBLER Work Phone: [facility]01-23-2025 09:13-0500Systolic blood nfuadrog89 mm[Hg]Ruben Valentine CAR SHAKEOUT OPERATOR-REFRIGERATOR ASSEMBLER Work Phone: [facility]01-15-2025 12:14-0500Body badbvt949.5 cmMichael Keller MD Work Phone: [facility]01-15-2025 12:14-0500Body mass index (BMI) [Ratio]25.5 kg/o2HgzndzfJonathan Keller MD Work Phone: [facility]01-15-2025 12:14-0500Body pplugz20.53 kgJonathan Keller MD Work Phone: [facility]01-15-2025 12:14-0500Diastolic blood rqjwcirt93 mm[Hg]Jonathan Keller MD Work Phone: [facility]01-15-2025 12:14-0500Heart rate 85 /minJonathan Keller MD Work Phone: [facility]01-15-2025 12:14-0500Systolic blood mejivtsu655 mm[Hg]Jonathan Keller MD Work Phone: [facility]12-23-2024 09:24-0500Body ynupci830 cmAngela Cristhian DIAMOND POWDER TECHNICIAN Work Phone: noCoxHealthTarktvkmia76-48-4295 09:24-0500Body mass index (BMI) [Ratio]25.08 kg/x3NrsexzAlicja Morrow DIAMOND POWDER TECHNICIAN Work Phone: [facility] CenterRdogisahwg62-98-8848 09:24-0500Body .44 kgAlicja Morrow DIAMOND POWDER TECHNICIAN Work Phone: [facility] CenterOgxqcmrzjd37-57-9698 09:24-0500Diastolic blood wpufasqi38 mm[Hg]Alicja Morrow DIAMOND POWDER TECHNICIAN Work Phone: noCoxHealthWugptrwywa24-27-3341 09:24-0500Heart gwoj262 /min Alicja Morrow DIAMOND POWDER TECHNICIAN Work Phone: noCoxHealthMhejqgenrq96-15-4128 09:24-0500Systolic blood ybztivcf961 mm[Hg]Alicja Morrow DIAMOND POWDER TECHNICIAN Work Phone: [facility] CenterMmlvofniur80-95-7084 14:16-0500Body ynnzci872.5 cmJonathan Keller MD Work Phone: [facility]11-11-2024 14:16-0500Body mass index (BMI) [Ratio]25.5 kg/h2VdbfwixJonathan Kleler MD Work Phone: [facility]11-11-2024 14:16-0500Body kxosxs38.53 kgJonathan Keller MD Work Phone: [facility]11-11-2024 14:16-0500Diastolic blood mm[Hg]Jonathan Keller MD Work Phone: [facility]11-11-2024 14:16-0500Heart rate 94 /minJonathan Keller MD Work Phone: [facility]11-11-2024 14:16-0500Systolic blood ezspmcdj227 mm[Hg]Jonathan Keller MD Work Phone: [facility]11-04-2024 09:31-0500Body avsrxm312 cmSteven Rusher DPM Work Phone: [facility] CenterRemyqpppnb77-74-6204 09:31-0500Body mass index (BMI) [Ratio]24.71 kg/q8Vqngzy Rusher DPM Work Phone: 1(414)[address]11-04-2024 09:31-0500Body zomhqv99.08 kgSteven Rusher DPM Work Phone: 1(083)[address]10-21-2024 10:34-0400Body rknwah785.5 cmVish Valentine CAR SHAKEOUT OPERATOR-REFRIGERATOR ASSEMBLER Work Phone: [facility]10-21-2024 10:34-0400Body mass index (BMI) [Ratio]25.57 kg/j2FpdbktyRuben Valentine CAR SHAKEOUT OPERATOR-REFRIGERATOR ASSEMBLER Work Phone: [facility]10-21-2024 10:34-0400Body xjvpoyeysvg22.5 [degF]Ruben Valentine APRN-REFRIGERATOR ASSEMBLER Work Phone: [facility]10-21-2024 10:34-0400Body sbbbov24.81 kgRuben Valentine APRN-REFRIGERATOR ASSEMBLER Work Phone: [facility]10-21-2024 10:34-0400Diastolic blood ethnkrqq74 mm[Hg]Ruben Valentine APRN-REFRIGERATOR ASSEMBLER Work Phone: [facility]10-21-2024 10:34-0400Heart rate 97 /minRuben Valentine APRN-REFRIGERATOR ASSEMBLER Work Phone: [facility]10-21-2024 10:34-0400 Respiratory rate18 /minRuben Valentine CAR SHAKEOUT OPERATOR-REFRIGERATOR ASSEMBLER Work Phone: [facility]10-21-2024 10:34-3797WnC2% (BldA) [Mass fraction]98 %Ruben Valentine APRN-REFRIGERATOR ASSEMBLER Work Phone: [facility]10-21-2024 10:34-0400Systolic blood caetsomz804 mm[Hg]Ruben Valentine APRN-REFRIGERATOR ASSEMBLER Work Phone: [facility]08-29-2024 09:44-0400Body mnumzd605 cmAngyeison Victorinaanny DIAMOND POWDER TECHNICIAN Work Phone: [facility] CenterIitytbxled01-53-9221 09:44-0400Body mass index (BMI) [Ratio]24.71 kg/w7WvfcflAlicja Morrow DIAMOND POWDER TECHNICIAN Work Phone: [facility] CenterGtclmjhcml41-42-7129 09:44-0400Body ohrrar31.08 kgAlicja Morrow DIAMOND POWDER TECHNICIAN Work Phone: noCoxHealthLgocnqhyjv05-93-3150 09:44-0400Diastolic blood qsvmvkdy97 mm[Hg]Alicja Morrow DIAMOND POWDER TECHNICIAN Work Phone: noCoxHealthMlbfnrnlgk41-19-2695 09:44-0400Systolic blood xbawxfiv269 mm[Hg]Alicja Morrow DIAMOND POWDER TECHNICIAN Work Phone: [facility] CenterHhifqqqzyf10-50-1995 08:35-0400Body .5 cmVish Valentine APRN-REFRIGERATOR ASSEMBLER Work Phone: [facility]07-18-2024 08:35-0400Body mass index (BMI) [Ratio]25.64 kg/q4BirjaaoRuben Valentine APRN-REFRIGERATOR ASSEMBLER Work Phone: [facility]07-18-2024 08:35-0400Body isdlctlykzu46.8 [degF]Ruben Valentine APRN-REFRIGERATOR ASSEMBLER Work Phone: [facility]07-18-2024 08:35-0400Body .03 kgRuben Valentine APRN-REFRIGERATOR ASSEMBLER Work Phone: [facility]07-18-2024 08:35-0400Diastolic blood sijcsbvh01 mm[Hg]Ruben Valentine APRN-REFRIGERATOR ASSEMBLER Work Phone: [facility]07-18-2024 08:35-0400Heart rate 80 /minRuben Valentine APRN-REFRIGERATOR ASSEMBLER Work Phone: [facility]07-18-2024 08:35-0400 Respiratory rate20 /minRuben Valentine APRN-REFRIGERATOR ASSEMBLER Work Phone: [facility]07-18-2024 08:35-0373StZ1% (BldA) [Mass fraction]97 %Ruben Valentine APRN-REFRIGERATOR ASSEMBLER Work Phone: [facility]07-18-2024 08:35-0400Systolic blood mvdjkgno495 mm[Hg]Ruben Valentine APRN-REFRIGERATOR ASSEMBLER Work Phone: [facility]06-19-2024 16:26-0400Body oqvlgf132.04 [facility] 16:26-0400Body mass index (BMI) [Ratio]25.5 kg/s6LsgxkhjgxCleveland [facility]06-19-2024 16:26-0400Body efkeuetqsxn33.3 [degF][facility]06-19-2024 16:26-0400Body scryej76.25 kgC[facility]06-19-2024 16:26-0400Diastolic blood wtagjtxd133 mm[Hg][facility] 09-11-2023 16:26-0400Heart rate78 /[facility] 09-11-2023 16:26-0400Respiratory rate16 /[facility] 09-11-2023 16:26-8011TmF8% (BldA) [Mass fraction]96 %[facility]06-19-2024 16:26-0400Systolic blood fqrbgrpi796 mm[Hg][facility]02-19-2024 16:04-0500Body otrtvs385.5 cmVish Valentine APRN-REFRIGERATOR ASSEMBLER Work Phone: [facility]02-19-2024 16:04-0500Body mass index (BMI) [Ratio]26.05 kg/m7ZaayxwiRuben Valentine APRN-REFRIGERATOR ASSEMBLER Work Phone: [facility] Nxoqki08-25-4204 16:04-0500Body tzecwvfiffh41.59 [degF]Ruben Valentine CAR SHAKEOUT OPERATOR-REFRIGERATOR ASSEMBLER Work Phone: [facility] Udfefk09-02-2713 16:04-0500Body vyssgn53.53 kgRuben Valentine APRN-REFRIGERATOR ASSEMBLER Work Phone: [facility] Lcfsrf58-40-3084 16:04-0500Diastolic blood vhpvvejg982 mm[Hg]Ruben Valentine CAR SHAKEOUT OPERATOR-REFRIGERATOR ASSEMBLER Work Phone: [facility] Glzsly76-64-6327 16:04-0500Heart rate 113 /minRuben Valentine CAR SHAKEOUT OPERATOR-REFRIGERATOR ASSEMBLER Work Phone: [facility]02-19-2024 16:04-0500 Respiratory rate18 /minRuben Valentine CAR SHAKEOUT OPERATOR-REFRIGERATOR ASSEMBLER Work Phone: [facility] Vjkzzn48-49-7995 16:04-8201XnB3% (BldA) [Mass fraction]96 %Ruben Valentine APRN-REFRIGERATOR ASSEMBLER Work Phone: [facility] HospitalEllipt[facility] Technologies Giqeyq77-23-8596 16:04-0500Systolic blood lanwknbj175 mm[Hg]Ruben Valentine APRN-REFRIGERATOR ASSEMBLER Work Phone: [facility] Czkviz26-28-0741 13:34-0500Body thotuq450.5 cmVish Valentine APRN-REFRIGERATOR ASSEMBLER Work Phone: [facility]01-25-2024 13:34-0500Body mass index (BMI) [Ratio]25.92 kg/n0CfqvgcpRuben Valentine APRN-REFRIGERATOR ASSEMBLER Work Phone: [facility] Ilcpvm32-19-9470 13:34-0500Body vdwotbxiiya19.5 [degF]Ruben Valentnie APRN-REFRIGERATOR ASSEMBLER Work Phone: [facility] Mnojlx99-28-4546 13:34-0500Body afbfyw73.08 kgRuben Valentine APRN-REFRIGERATOR ASSEMBLER Work Phone: [facility] Nigrah65-98-1239 13:34-0500Diastolic blood qdpgaapr16 mm[Hg]Ruben Valentine APRN-REFRIGERATOR ASSEMBLER Work Phone: [facility] Fzuomu07-85-2070 13:34-0500Heart rate 111 /minRuben Valentine APRN-REFRIGERATOR ASSEMBLER Work Phone: [facility]01-25-2024 13:34-4491LiG2% (BldA) [Mass fraction]97 %Ruben Valentine APRN-REFRIGERATOR ASSEMBLER Work Phone: [facility] Wawkcw63-75-5406 13:34-0500Systolic blood bpfvysct958 mm[Hg]Ruben Valentine APRN-REFRIGERATOR ASSEMBLER Work Phone: [facility] Jhliem89-64-0612 09:42-0500Body xkrqak695.5 Samra Valentine APRN-REFRIGERATOR ASSEMBLER Work Phone: [facility]01-18-2024 09:42-0500Body mass index (BMI) [Ratio]26.04 kg/z4TlcdtfnRuben Valentine APRN-ADILSON Work Phone: [facility] HospitalX[facility]01-18-2024 09:42-0500Body iywrbldlrkk89.11 [degF]Ruben Valentine APRN-ADILSON Work Phone: [facility] Hospital[facility]01-18-2024 09:42-0500Body puyiqe34.48 kgRuben Valentine APRN-ADILSON Work Phone: [facility] Hospital[facility]01-18-2024 09:42-0500Diastolic blood dpjitiex34 mm[Hg]Ruben Valentine APRN-ADILSON Work Phone: [facility]01-18-2024 09:42-0500Heart rate 96 /minRuben Valentine APRN-ADILSON Work Phone: [facility] Hospital[facility]01-18-2024 09:42-0500 Respiratory rate16 /minRuben Valentine APRN-ADILSON Work Phone: [facility] Hospital[facility]01-18-2024 09:42-6023ZjO7% (BldA) [Mass fraction]98 %Ruben Valentine APRN-ADILSON Work Phone: [facility] Hospital[facility]01-18-2024 09:42-0500Systolic blood opjzcngp380 mm[Hg]Ruben Valentine APRN-ADILSON Work Phone: [facility] HospitalX[facility]10-04-2022 10:30-0400Body hzuorn306.04 cmCamermil Sean Other [employer] Other 10-04-2022 10:30-0400Body mass index (BMI) [Ratio] 27.26 kg/i9Godqdif Sean Other [employer] Other 10-04-2022 10:30-0400Body .61 kgCamnafisa Estrada Other [employer] Other 10-04-2022 10:30-0400Diastolic blood pislkxff94 mm[Hg] Gerson Estrada Other [employer] Other 10-04-2022 10:30-0400Systolic blood ckiuswat778 mm[Hg] Gerson Estrada Other [employer] Other Encounters Encounter DateEncounter TypeCare ProviderFacilityStart: 01-26-2025 End: 91-49-3370YpmtzrUhbvcom Boggs [facility]ALTHPro[facility] Medicine - Family MedicineComment on above:Primary hypertensionStart: 01-19-2025 End: 53-27-1915VrejjpSantiago HILL Work Phone: [facility] - Family MedicineComment on above:Chronic idiopathic constipationStart: 01-18-2025 End: 18-11-2822IyohbuKhhnxqbm Johnson [facility] HEALTHPro[facility]ica [facility]icians Internal Medicine - Family MedicineComment on above:Chronic idiopathic constipationStart: 01-08-2025 End: 86-89-7169Raowhzxct encounterSamber Mitchell [facility]ALTHProMedica Physicians Genito- Urinary SurgeonsComment on above:Chronic idiopathic constipationStart: 01-07-2025 End: 20-18-5011Gvuijptlo encounterWalter Zafar [facility]ALTHProMedica [facility]icians Internal Medicine - Family MedicineStart: 01-06-2025 End: 79-71-9039hrmthroehoDVYPPXU G RASHIDDoctors Hospital Ambulatory PPGStart: 01-06-2025 End: 34-58-7572Wmlkvf outpatient visit 15 minutesJonathan Keller MD Work Phone: [facility]erca [facility] Genito-Urinary SurgeonsComment on above:Enuresis (Primary Dx)Start: 01-04-2025 End: 43-02-5331Avmgpl outpatient visit 25 minutesKyle Jessica Del Rio CAR SHAKEOUT OPERATOR-REFRIGERATOR ASSEMBLER Work Phone: [facility] - Family MedicineComment on above:Chronic idiopathic constipationStart: 01-04-2025 End: 11-20-8202ggvrrssbtgVJNBRegency Hospital of [facility] Ambulatory PPGStart: 12-22-2024 End: 54-72-7426ZcxjohHdykshql Johnson CMAProMedica Physicians Internal Medicine - Family [facility] Hospitaltart: 12-14-2024 End: 54-71-5742jlouwakwhdMqkrugaEsme CHAUDHRY Work Phone: [facility] Work Phone: Start: 12-14-2024 End: 20-52-6678Nlsgubd encounter procedureNicole Rashida Jordan DO-[facility] Work Phone: Start: 11-25-2024 End: 86-58-0244Nyprky Yessica Galvan DO Work Phone: [facility] - Family MedicineComment on above:Vitamin D deficiencyStart: 10-13-2024 End: 58-15-2081lxsxumwepzSTDMDearborn County Hospital Ambulatory PPGStart: 10-13-2024 End: 43-18-8160Kexecn outpatient visit 15 minutesKyle Jessica Del Rio CAR SHAKEOUT OPERATOR-REFRIGERATOR ASSEMBLER Work Phone: [facility] Internal Medicine - Family MedicineComment on above:Primary hypertension (Primary Dx); Chronic idiopathic constipationStart: 10-01-2024 End: 84-39-6470Jyfsxdj encounter procedureSteven A Rusher DPM Work Phone: [facility] PODIATRYComment on above:Dermatophytosis of nail (Primary Dx); Dystrophic nail; Pain around toenail, right foot; Pain around toenail, left footStart: 10-01-2024 End: 17-75-3511ozkbqsrmvjJGRTRA A RUSHERNot AvailableStart: 10-01-2024 End: 60-69-8153Rjocxn flowsheetSteven A Rusher DPM Work Phone: noms PODIATRYStart: 10-01-2024 End: 00-74-9077Gtwwxn flowsheetSteven A Rusher DPM Work Phone: noms PODIATRYStart: 09-25-2024 End: 29-38-7462OmbifaVukixpr Chaney CAR SHAKEOUT OPERATOR-REFRIGERATOR ASSEMBLER Work Phone: [facility] Genito-Urinary SurgeonsStart: 09-01-2024 End: 72-45-2059Aquyujyuz encounterNicliza Zafar CMAProMedica Physicians Internal Medicine - [facility] Hospitaltart: 08-17-2024 End: 62-61-2830Nuhutfbyi department patient visitExcela Healthtart: 08-14-2024 End: 56-91-8808QobxxrVtsjeos Rashida BakerValentine CAR SHAKEOUT OPERATOR-REFRIGERATOR ASSEMBLER Work Phone: [facility] Internal [facility] - [facility] HospitalComment on above:Benign prostatic hyperplasia with urinary frequency Start: 07-01-2024 End: 73-43-7291gvtlwetmqeLBYIPTTE I [facility] Ambulatory PPG Start: 07-01-2024 End: 34-21-1589Zfxxek outpatient visit 15 minutesLogan ABDULLAHI Work Phone: [facility] Genito-Urinary SurgeonsComment on above:Enuresis (Primary Dx)Start: 06-26-2024 End: 88-93-2327HdvkjeDujpryAlirio De La Cruz Physicians Genito-Urinary SurgeonsStart: 06-23-2024 End: 56-88-0299Agxhyaw encounter procedureSteven A Rusher DPM Work Phone: noms PODIATRYComment on above:Dermatophytosis of nail (Primary Dx); Dystrophic nail; Pain around toenail, right foot; Pain around toenail, left footStart: 06-23-2024 End: 01-40-5155cgkarbdoniIPDVJF A RUSHERNot AvailableStart: 06-23-2024 End: 47-93-3258Cazipk flowsheetSteven A Rusher DPM Work Phone: noms PODIATRYStart: 06-23-2024 End: 00-71-6912Keztdn Chenchotemavis Dyer DPM Work Phone: noms PODIATRYStart: 06-02-2024 End: 17-62-0111xhajhfejutDVBTCO FARANERNot AvailableStart: 05-14-2024 End: 13-70-1870JhndfqEcijldzGerry Valentine APRN-ADILSON Work Phone: [facility] Internal Medicine - Family MedicineStart: 04-16-2024 End: 34-03-2536jgelkqxkupIVGBTGGAstria Regional Medical Center Ambulatory PPG Start: 46-10-2674Opqxcrwzg for general adult medical examination without abnormal findingsDoctors Hospital of [facility]aredo Ambulatory PPGStart: 04-16-2024 End: 65-21-1779Npmoamq encounter procedureRuben Valentine APRN-ADILSON Work Phone: [facility] Internal Medicine - Family MedicineComment on above:Medicare annual wellness visit, subsequent (Primary Dx); Mood disorder ([facility]-HCC); Other hydrocephalus ([facility]-HCC); Other cerebral palsy ([facility]-HCC); Special screening for malignant neoplasm of colonStart: 04-08-2024 End: 54-90-9417Tpelgg outpatient visit 15 minutesJonathan Keller MD Work Phone: [facility] Genito-Urinary SurgeonsComment on above:Enuresis (Primary Dx)Start: 04-08-2024 End: 01-11-1457fpdfkxvrezLEQUIYV G RASHIDDoctors Hospital Ambulatory PPGStart: 03-31-2024 End: 63-29-0451Bhfchs OnlyRuben Valentine APRN-ADILSON Work Phone: [facility] Internal Medicine - Family MedicineComment on above:Chronic idiopathic constipationStart: 03-30-2024 End: 78-68-4066AajivoCemqfjhGerry Valentine APRN-ADILSON Work Phone: [facility] Internal Medicine - Family MedicineComment on above:Chronic idiopathic constipationStart: 03-30-2024 End: 81-01-0334Ybqvuvktf Blancaliza Alfarojaylyn MEYERProMedica Physicians Internal Medicine - [facility] MedicineStart: 03-19-2024 End: 91-85-4898afvldrwipmFLPFKW GILLMORNot AvailableStart: 03-16-2024 End: 70-51-8252Daacvj carmelaAngeshireen Prajapatimor DIAMOND POWDER TECHNICIAN Work Phone: noms [facility] R[facility]TEStart: 03-16-2024 End: 75-49-0112Dfrmpm flowsheetAngela Victorinamor DIAMOND POWDER TECHNICIAN Work Phone: noms [facility] ROUTEStart: 03-16-2024 End: 50-91-7897roknaulietROZOWL GILLMORNot AvailableStart: 03-16-2024 End: 19-02-8446Tegwej outpatient visit 25 minutesAngeshireen Morrow DIAMOND POWDER TECHNICIAN Work Phone: noms [facility] ROUTEComment on above: Hydrocephalus, unspecified type (CMS/HCC) (Primary Dx); Pseudobulbar affect; Mood disorder (CMS/HCC); Memory lossStart: 02-17-2024 End: 08-31-3348CixtpnAastbtcLeydi Valentine APRN-ADILSON Work Phone: [facility] MedicineStart: 02-14-2024 End: 88-43-7301ufvpgonkscRHGMTHM G. RASHThedacare Medical Center Shawano HospitalStart: 02-14-2024 End: 02-32-2777OmuiquBlumkadLeydi Valentine APRN-ADILSON Work Phone: [facility] - [facility] MedicineStart: 02-03-2024 End: 86-05-3541Mxmecg outpatient new 45 minutesJonathan Keller MD Work Phone: [facility] Genito-Urinary SurgeonsComment on above:Enuresis (Primary Dx); Nocturnal enuresis; Urinary incontinence, unspecified typeStart: 02-03-2024 End: 72-93-8830nckkimvlanODZGVFJ G [facility] Ambulatory PPGStart: 01-27-2024 End: 72-85-9061Ubouzv flowsheetSteven A Rusher DPM Work Phone: noms PODIATRYStart: 01-27-2024 End: 88-00-6838Gjoqlf flowsheetSteven A Rusher DPM Work Phone: noms PODIATRYStart: 01-27-2024 End: 47-97-3083hcocwsidhpIETXUN A RUSHERNot AvailableStart: 01-27-2024 End: 41-16-2762Miivqat encounter procedureSteven A Rusher DPM Work Phone: noms PODIATRYComment on above:Dermatophytosis of nail (Primary Dx); Dystrophic nail; Pain around toenail, right foot; Pain around toenail, left footStart: 01-13-2024 End: 93-35-9386sybcdglcqdXHEJLEA Rashida [facility] Ambulatory PPG Start: 01-13-2024 End: 43-01-0415Iwwlgq outpatient visit 15 minutesRuben Valentine CAR SHAKEOUT OPERATOR-REFRIGERATOR ASSEMBLER Work Phone: [facility] - Family MedicineComment on above:Bilateral impacted cerumen (Primary Dx); Primary hypertensionStart: 01-09-2024 End: 62-24-4210Sinaon OnlyRuben Valentine CAR SHAKEOUT OPERATOR-REFRIGERATOR ASSEMBLER Work Phone: [facility] - Family MedicineComment on above:Test anxiety (Primary Dx); Phobia of dental procedure; Need for antibiotic prophylaxis for dental procedureStart: 01-08-2024 End: 16-01-5620Dxqbeaxwz encounterRuben Valentine CAR SHAKEOUT OPERATOR-REFRIGERATOR ASSEMBLER Work Phone: [facility] - Family MedicineStart: 12-04-2023 End: 63-58-5939Pilfcojux encounterWalter Zafar CMAProMedica Physicians Internal Medicine - Family MedicineStart: 11-28-2023 End: 89-34-2106syfjxfpxffPZWGEO GILLMORNot AvailableStart: 11-21-2023 End: 49-32-1895Ssrpca Fabi Morrow DIAMOND POWDER TECHNICIAN Work Phone: noMS [facility] ROUTEStart: 11-21-2023 End: 40-10-4449Rqwchz Fabi Morrow DIAMOND POWDER TECHNICIAN Work Phone: noMS [facility] ROUTEStart: 11-21-2023 End: 70-06-9598ovtxmzvilrSQCWOS GILLMORNot AvailableStart: 11-21-2023 End: 60-30-3250Pccecw outpatient visit 25 minutesAlicja Morrow DIAMOND POWDER TECHNICIAN Work Phone: noms [facility] ROUTEComment on above: Hydrocephalus, unspecified type (CMS/HCC) (Primary Dx); Pseudobulbar affect; Mood disorder (CMS/HCC); Memory loss; Attention deficit hyperactivity disorder (ADHD), unspecified ADHD type (CMS/HCC) Start: 11-12-2023 End: 32-04-0633LelwszHaxfkrxLeydi HILL Work Phone: [facility] Internal Medicine - Family MedicineComment on above:Vitamin D deficiencyStart: 10-10-2023 End: 23-99-1489osijsecrauYRPSAWGEsme [facility] HospitalStart: 10-10-2023 End: 56-65-3164Crjvup outpatient visit 25 minutesRuben HILL Work Phone: [facility] Internal Medicine - Family MedicineComment on above:Acute cystitis without hematuria (Primary Dx); Nocturnal enuresis; Vitamin D deficiency; Primary hypertension; Mixed hyperlipidemia; Pre-diabetes; Benign prostatic hyperplasia with urinary frequencyStart: 09-27-2023 End: 80-76-1936KcxngzVcnemqlLeydi HILL Work Phone: [facility] Internal Medicine - Family MedicineComment on above:Chronic idiopathic constipationStart: 09-11-2023 End: 13-67-7386Vvufseju Dolly Benavides Work Phone: [facility] [place] Work Phone: Start: 09-11-2023 End: 66-47-0664irpwsdwgcbQMJRUPCYD NO [facility] Work Phone: Start: 09-11-2023 End: 94-56-8254Zjxuwty encounter procedureVarun Physician Group-[facility] Work Phone: Start: 58-37-3756Rhhmck OnlyRuben Valentine APRN-ADILSON Work Phone: [facility] Internal Medicine - Family MedicineComment on above:Acute cystitis without hematuria (Primary Dx)Start: 05-13-2023 End: 22-81-9208Mlowqj outpatient visit 15 minutesRuben Valentine APRN-ADILSON Work Phone: [facility] Internal Medicine - Family MedicineComment on above:Acute cystitis without hematuria (Primary Dx); Nocturnal enuresisStart: 05-13-2023 End: 74-25-4947ulpkpwakyeIKFLGFMEsme Adamse [facility] Memorialtart: 04-18-2023 End: 25-83-1737Btsudg outpatient visit 15 minutesRuben Valentine APRN-REFRIGERATOR ASSEMBLER Work Phone: [facility] Internal Medicine - Family MedicineComment on above:Impacted cerumen of right ear (Primary Dx)Start: 04-11-2023 End: 47-64-7752Qbbkrdy encounter Yonathan Valentine APRN-REFRIGERATOR ASSEMBLER Work Phone: [facility] Internal Medicine - Family MedicineComment on above:Medicare annual wellness visit, subsequent (Primary Dx); Right ear impacted cerumen; Other cerebral palsy ([facility]-HCC); Other hydrocephalus ([facility]-H[facility])Start: 22-28-7817sjjchgrajjEO [facility]CTOR [facility] Facility:X0Mbuhf: 08-21-2022 End: 21-50-7156urorweohdsGAP E KNIGHTFacility:FTMCStart: 08-21-2022 End: 13-24-5802Exl Drop offGELA ISAAC [facility] Start: 08-06-2022 End: 97-84-1754hfquoifozbLO Aiden EricksonFacility:FT BellevueStart: 05-23-2022 End: 83-75-5119niceecenenQK KIM E KNIGHT .Facility:Z8Wsksr: 46-73-9087ndtkrfchub KIM E KNIGHTFacility:FT BellevueStart: 12-26-2021 End: 34-50-6240cypalwznxfBlbqnwj [employer] Other [employer] Other Start: 31-95-3181Ofnfhka encounter procedureCameron DittyFPG GastroenterologyStart: 11-28-2021 End: 02-94-9061ndeeaximklKcddcpf Ditty Other [employer] Other Start: 27-55-4049Vpwjnnjue encounterCameron DittyFPG GastroenterologyStart: 11-09-2021 End: 87-44-9268irikmasrdmAY KIM E KNIGHT .Facility:P3Jclfx: 02-13-2021 End: 70-33-9367qvmjlvhhujUISTL AL MASHNIFacility:METROHealthStart: 02-08-2021 End: 03-55-8503usmjtvxyboVGCEVWS PROVIDERFacility:METROHealthStart: 02-03-2021 ambulatoryUNKNOWN PROVIDERFacility:[facility] Procedures DateProcedureProcedure DetailPerforming ClinicianStart: 65-18-7572Bblla depression screening assessmentMaria Teresa Del Rio CAR SHAKEOUT OPERATOR-REFRIGERATOR ASSEMBLER Work Phone: Start: 41-50-7137Ixvhq depression screening assessment Maria Teresa Del Rio CAR SHAKEOUT OPERATOR-REFRIGERATOR ASSEMBLER Work Phone: Start: 26-79-2753Mqqft depression screening assessment Ruben Bakerillo CAR SHAKEOUT OPERATOR-REFRIGERATOR ASSEMBLER Work Phone: Start: 42-11-7184Vkubus-up visitFollow-upMICHAEL G RASHIDStart: 11-71-7126Vgcsw dip stick/tablet rgnt non-auto w/o micrscpValerie Rashida Valentine APRNBRIGHAM AND WOMEN'S HOSPITAL Work Phone: Start: 59-46-1567Zbair depression screening assessment Ruben Valentine APRNBRIGHAM AND WOMEN'S HOSP[facility] Work Phone: Start: 95-78-9225Rmcli dip stick/tablet rgnt non-auto w/o micrscpValerie Rashida Valentine [facility] Work Phone: Start: 76-43-4004Jddri depression screening assessment Ruben Valentine CAR SHAKEOUT OPERATORBRIGHAM AND WOMEN'S HOSPITAL Work Phone: Start: 87-95-6389Miwvj depression screening assessment Ruben Valentine [facility] Work Phone: Start: 21-85-4116Xkscd depression screening assessment Ruben Valentine [facility] Work Phone: Other (qualifier value)GELA ISAAC Comment on above:v-p shunt Plan of Treatment DateCare ActivityDetailAuthorStart: 70-10-7167Mpabznfgd for malignant neoplasm of colonNOMS HealthcareStart: 43-63-3707Lmnzp BMI ScreeningAdult BMI Screening [facility] SystemStart: 63-90-1213Cybqybx ScreeningTobacco Screening [facility] SystemStart: 62-75-9515Ikhwa BMI ScreeningAdult BMI Screening [facility] SystemStart: 74-25-2495Autjulllwz ScreeningDepression Screening [facility] SystemStart: 59-11-2580Pkrcskf ScreeningTobacco Screening [facility] SystemStart: 62-37-9395Bhedp BMI ScreeningAdult BMI Screening [facility] SystemStart: 98-09-1584Vtelvenwbf ScreeningDepression Screening [facility] SystemStart: 83-07-3075Ievgxny ScreeningTobacco Screening [facility] SystemStart: 74-83-2880Rnimp BMI ScreeningAdult BMI Screening [facility] SystemStart: 65-40-3841Ijvgqmn ScreeningTobacco Screening [facility] SystemStart: 97-45-5810Seeit BMI ScreeningAdult BMI Screening [facility] SystemStart: 88-04-3711Eldjrzz ScreeningTobacco Screening [facility] SystemStart: 04-21-2025 End: 18-59-5270Eldpcew encounter nkhetdbir43/28/2026 10:30 AM EST Office Visit [facility] [address] [place] [address] [address] [facility] [place] [address] Logan Cantor PA [address] [place], [place] [id number] [facility] SurgeonsStart: 04-19-2025 End: 37-02-6328Twwoqie encounter procedureProMedica Physicians Internal Medicine - Family MedicineStart: 42-09-8370Wzfch BMI Follow Up PlanAdult BMI Follow Up PlanUniversity Hospitals [facility] SystemStart: 15-26-4067Xjvqn BMI ScreeningAdult BMI ScreeningUniversity Hospitals [facility] SystemStart: 92-49-3218Izutqkcolx ScreeningDepression ScreeningUniversity Hospitals [facility] SystemStart: 01-23-2026Medicare Annual Wellness (AWV) Medicare Annual Wellness (AWV)[facility] HealthcareStart: 27-76-6655Peynzft Screening Tobacco ScreeningUniversity Hospitals [facility] SystemStart: 06-86-8937Amilj BMI Screening Adult BMI ScreeningUniversity Hospitals [facility] Medical [facility] SystemStart: 90-96-5828Yxrytxt Screening Tobacco ScreeningUniversity Hospitals [facility] SystemStart: 02-03-2025 End: 76-47-9428Bpicepu encounter mtzudkyyf54/12/2025 1:00 PM EST Procedure Visit [facility] [address] [place] [address] Antione Dyer DPM [address] [place], [place] [id number] [facility] PODIATRYStart: 82-78-1347Blvgh BMI ScreeningAdult BMI Screening [facility] [facility] SystemStart: 05-91-3619Uzmkjqh ScreeningTobacco Screening [facility] SystemStart: 97-22-3449Vcxcc BMI Follow Up PlanAdult BMI Follow Up PlanUniversity Hospitals Parma Medical Center SystemStart: 01-06-2025 End: 19-63-9760Sxhqhvj encounter didcpftse45/15/2025 1:45 PM EDT Office Visit [facility] [address] [place] [address] [facility] [place] [address] Jonathan Keller MD [address] [place] [address] [facility] SurgeonsStart: 12-08-2024 End: 42-73-1202Khqyzsu encounter edgjchnxa01/16/2025 10:45 AM EDT Office Visit [facility] [address] [place] [address] Walter Jordan DO [address] [place] [address] ROLLY REYtart: 83-66-8327CUNEE-19 Vaccine ( season)COVID-19 Vaccine ( season)[facility] SystemStart: 89-49-2277Evltlgduy vaccinationNONH HealthcareStart: 10-13-2024 End: 23-29-6958Lrvzipn encounter procedureProMedica Physicians Internal Medicine - Family MedicineStart: 65-16-7200Aemdl BMI Follow Up PlanAdult BMI Follow Up PlanUniversity Hospitals Par[facility] SystemStart: 64-65-8010Fiicc BMI ScreeningAdult BMI ScreeningUniversity Hospitals [facility] SystemStart: 21-10-6387Guyqgkzrus ScreeningDepression ScreeningUniversity [facility]als [facility] SystemStart: 11-00-0479Impntqr ScreeningTobacco ScreeningUniversity [facility]als [facility] SystemStart: 10-01-2024 End: 93-67-7158Kijzwpb encounter procedureNOMS FH PODIATRYComment on above: ArrivedStart: 07-01-2024 End: 69-14-5029Lobifck encounter jvysnbnni39/09/2025 1:00 PM EDT Office Visit [facility] [address] [place] [address] [place] [address] Logan Cantor I, PA [address] [place] [address] [facility] SurgeonsStart: 06-23-2024 End: 23-14-0231Zddzvje encounter orbkccbzo21/01/2025 2:30 PM EDT Procedure Visit [facility] [address] [place] [address] Antione Dyer DPM [address] [place], [place] [id number] ArrivedNOMS PODIATRYComment on above:ArrivedStart: 06-02-2024 End: 84-51-6192Odqzpci encounter /11/2025 10:45 AM EDT Office Visit [facility] [place] [address] Walter Jordan, [address] [place] [address] [facility] [place] [facility] ROUTEStart: 05-21-2024 End: 16-00-4455Ptehtfa encounter cfldrojgy70/27/2025 4:00 PM EST Procedure Visit [facility] [address] [place] [address] Antione Dyer DPM [address] [place], [place] [address] [facility] PODIATRYStart: 56-91-3490Quwob BMI Follow Up PlanAdult BMI Follow Up PlanProBlanchard Valley [facility] SystemStart: 67-22-5581Irgnr BMI ScreeningAdult BMI ScreeningProBlanchard Valley Health System SystemStart: 29-76-6180Rvjtyllmfr ScreeningDepression ScreeningProBlanchard Valley Health System SystemStart: 30-71-9019Zsjgole ScreeningTobacco ScreeningUniversity Hospitals [facility] SystemStart: 27-09-9058Raqan BMI Follow Up PlanAdult BMI Follow Up PlanUniversity Hospitals Parma Medical Center SystemStart: 19-19-5044Pocbu BMI Screening Adult BMI ScreeningProBlanchard Valley Health System SystemStart: 04-78-2440Eruvgwrfhv Screening Depression ScreeningProBlanchard Valley Health System SystemStart: 63-80-1589Fykcbqt Screening Tobacco ScreeningProBlanchard Valley Health System SystemStart: 04-16-2024 End: 52-71-3415Iglonfl encounter vfcfbdmoe10/23/2025 9:00 AM EST Office Visit [facility] [address] [place] [address] Ruben Valentine, CAR SHAKEOUT OPERATOR-REFRIGERATOR ASSEMBLER [address] [place] [address] [facility] - Family MedicineStart: 43-26-0264Vnuzv BMI Follow Up PlanAdult BMI Follow Up PlanNovant Health Pender Medical Centertart: 42-67-0200Mqibk BMI ScreeningAdult BMI ScreeningUniversity Hospitals [facility] SystemStart: 64-57-8421Xktphwzipi ScreeningDepression ScreeningUniversity [facility]als [facility] SystemStart: 01-18-2025Medicare Annual Wellness (AWV)Medicare Annual Wellness (AWV)[facility] HealthcareStart: 15-47-6794Jaidrkc ScreeningTobacco ScreeningUniversity [facility]als [facility] SystemStart: 04-08-2024 End: 41-92-7687Ssatyhc encounter ldchvqcfa94/15/2025 12:15 PM EST Office Visit [facility] [address] [place] [address] [facility] [place] [address] Jonathan Keller MD [address] [place] [address] [facility] SurgeonsStart: 03-16-2024 End: 48-36-3327CE Head WO contrastCT head wo IV contrast Imaging Routine Hydrocephalus, unspecified type (CMS/HCC) Expected: 03/16/2024 (Approximate), Expires: 03/16/2025[facility] Work Phone: comment on above:Expected: 03/16/2024 (Approximate), Expires: 03/16/2025Start: 02-14-2024 End: 06-74-7355Dnbhmkl encounter nikqwpcbm97/22/2024 3:30 PM EST Appointment [facility] - Ultrasound [address] [place] [address] Jonathan Keller MD [address] [place] [id number] [facility] - UltrasoundStart: 02-12-2024 End: 57-35-1922Fynmbne encounter iqpagxafk96/20/2024 2:40 PM EST [facility] [address] [place] [phone] Alicja Morrow NP [address] [place] [address] [facility] ROUTEStart: 02-03-2024 End: 93-86-4524Rkdgikx encounter drhjrxeck69/11/2024 2:00 PM EST Office Visit [facility] [address] [place] [address] [place] [address] Jonathan Keller MD [address] [place] [address] [facility]geonsStart: 02-03-2024 End: 17-52-1612ZW RetroperitoneumUltrasound retroperitoneal complete Imaging Routine Nocturnal enuresis Urinary incontinence, unspecified type Expected: 02/03/2024, Expires: 02/02/2025[facility] Work Phone: Comment on above:Expected: 02/03/2024, Expires: 02/02/2025Start: 01-27-2024 End: 30-85-8492Iqwudqx encounter mvecapyyt13/04/2024 9:15 AM EST Procedure Visit [facility] [address] [place] [address] Antione Dyer, DPM [address] [place], [place] [address] [facility] PODIATRYStart: 01-13-2024 End: 65-03-8958Rhuuhop encounter fzugbohqu78/21/2024 10:20 AM EDT Office Visit [facility] [address] [place] [address] Ruben Valentine, CAR SHAKEOUT OPERATOR-REFRIGERATOR ASSEMBLER [address] [place] [address] [facility] - Family MedicineStart: 61-42-3629Pjkct BMI Follow Up PlanAdult BMI Follow Up PlanKindred Healthcareca Health SystemStart: 90-40-0893YLCZE-19 Vaccine ( season)COVID-19 Vaccine ( season)[facility] SystemStart: 99-08-4650EHNQC-19 Vaccine ( season)COVID-19 Vaccine ( season)[facility] SystemStart: 70-78-8933Twhlbpkjf vaccinationSaint Mary's Health CenterStart: 11-21-2023 End: 77-38-4774XI Head WO contrastCT head wo IV contrast Imaging Routine Hydrocephalus, unspecified type (CMS/HCC) Memory loss Expected: 11/21/2023 (Approximate), Expires: 11/20/2024[facility] Work Phone: comment on above:Expected: 11/21/2023 (Approximate), Expires: 11/20/2024Start: 10-10-2023 End: 63-17-5610Geuxiov encounter /18/2024 8:30 AM EDT Office Visit [facility] [address] [place] [address] Ruben Valentine, CAR SHAKEOUT OPERATOR-REFRIGERATOR ASSEMBLER [address] [place] [address] [facility] - Family MedicineStart: 19-73-8846Fpdvqkln identified in Urine by CultureTrinity Health System Twin City Medical Centertart: 11-23-2022 COVID-19 Vaccine ( season)COVID-19 Vaccine () [facility] SystemStart: 14-69-9032TOuQ,Tdap and Td Vaccines ( - Tdap) DTaP,Tdap and Td Vaccines ( - Tdap)[facility] Medical Centertart: 1980 Screening for malignant neoplasm of colonSaint Mary's Health Center End: 56-60-1948Aogktmye identified in Urine by CultureUrine culture (clean catch) Microbiology Routine Nocturnal enuresis Acute cystitis without hematuria 1 Occurrences starting 05/13/2023 until 05/13/2024[facility] Work Phone: Comment on above:1 Occurrences starting 05/13/2023 until 05/13/2024 End: 67-86-9286Spbarqco identified in Urine by CultureUrine culture (clean catch) Microbiology Routine Acute cystitis without hematuria 1 Occurrences star ting 10/10/2023 until 10/09/2024[facility] Work Phone: Comment on above:1 Occurrences starting 10/10/2023 until 5Bacteria identified in Urine by CultureUrine culture (clean catch) Microbiology Routine Acute cystitis without hematuria 10/10/2023 3:18 PM [facility] End: 34-13-9541Zanyqcjo identified in Urine by CultureUrine Culture Microbiology Routine Nocturnal enuresis Urinary incontinence, unspecified type 1 Occurrences starting 02/03/2024 until 02/02/2025[facility] SystemComment on above:1 Occurrences starting 02/03/2024 until 02/02/2025ologuard Non-ProMedicaCologuard Non-[facility] Lab Routine Special screening for malignant neoplasm of colon Ordered: 04/16/2024[facility] Work Phone: Comment on above:Ordered: 04/16/2024 End: 73-19-5424Wtrsxingv specific antigen, diagnosticProstatic specific antigen, diagnostic Lab Routine Urinary incontinence, unspecified type 1 Occurrences starting 02/03/2024 until 02/02/2025ProBlanchard Valley Health System SystemComment on above:1 Occurrences starting 02/03/2024 until 02/02/2025 Immunizations Immunization DateImmunizationNotesCare LjienizdIvfafais92-39-6034qrmhiathf, injectable, quadrivalent, preservative freeValerie Valentine CAR SHAKEOUT OPERATOR-REFRIGERATOR ASSEMBLER Work Phone: [facility] CenterAummrq77-75-0107jqmfyxkuv virus vaccine, unspecified formulationValerie Valentine CAR SHAKEOUT OPERATOR-REFRIGERATOR ASSEMBLER Work Phone: [facility] Medical CenterUcnczq58-61-7030CLIF-GfU-1 (COVID-19) mRNA-1273 vaccineKIM ISAAC [phone]-AymmkSub[facility]01-11-2021 SARS-CoV-2 (COVID-19) mRNA-1273 vaccineKIM ISAAC 233-2165Avgavz-CrjrrSuburban [facility]11-04-2020 influenza virus vaccine, unspecified formulationKIM ISAAC 296-6566Yugpze-SrmshSuburban [facility]11-04-2020 influenza, injectable, quadrivalent, preservative freeValerie Valentine CAR SHAKEOUT OPERATOR-REFRIGERATOR ASSEMBLER Work Phone: [facility] CenterYyepnzdbhs00-55-1676kecwqtwzd virus vaccine, unspecified formulationKIM ISAAC 163-3082Sikxqz-TpjthSuburban [facility]11-08-2019 influenza, injectable, quadrivalent, preservative freeValerie Valentine CAR SHAKEOUT OPERATOR-REFRIGERATOR ASSEMBLER Work Phone: [facility] CenterIigsjfhzoy79-39-1999ufqhtbfle virus vaccine, unspecified formulationKIM ISAAC 905-0137Ruyomf-YknmiSub[facility]10-10-2018 influenza, injectable, quadrivalent, preservative freeValerie Valentine CAR SHAKEOUT OPERATOR-REFRIGERATOR ASSEMBLER Work Phone: [facility] CenterUugwgdcise91-65-5598wdcfsbyqu virus vaccine, unspecified formulationKI ISAAC 882-7556Jjwrof-IwjmbSub[facility]10-11-2017 influenza, injectable, quadrivalent, preservative freeValerie Valentine CAR SHAKEOUT OPERATOR-REFRIGERATOR ASSEMBLER Work Phone: [facility] CenterXqctycrsir75-35-1706gbvuagvrb virus vaccine, unspecified formulationKIM ISAAC 201-2311Kxowap-AicjjSub[facility]09-24-2016 influenza, injectable, quadrivalent, preservative freeValerie Valentine CAR SHAKEOUT OPERATOR-REFRIGERATOR ASSEMBLER Work Phone: [facility] CenterPpwltn81-88-0297rwuaamsxo virus vaccine, unspecified formulationKI ISAAC 886-7112Xelrpg-VawuoSuburban [facility]09-12-2015 influenza, injectable, quadrivalent, preservative freeValerie Valentine CAR SHAKEOUT OPERATOR-REFRIGERATOR ASSEMBLER Work Phone: [facility] CenterZcdgkeiwfg82-77-4282zegnx vouovjrsv-Q4N8-30, preservative-free, injectableSteven Rusher DPM Work Phone: [facility] Payers DatePayer CategoryPayerPolicy [id number]-pay2021Medicaid [id number] 2011Medicare [id number] 2..840.1.330475.3.57[id number] 2..840.1.196512.3.57[id number] 2.16.840.1.529372.3.57[id number] 2.840.1.294236.3.57[id number] 2.840.1.663064.3.57[id number] 2.840.1.945849.3.57[id number] 2..1.535573.3.579.2.[id number] 2.0.1.866717.3.579.[id number] 2.0.1.714975.3.57[id number] 2.0.1.948441.3.579.[id number] 2..1.609678.3.57[id number] 2..1.939941.3.579.[id number] 2..1.708871.3.579.2.0[id number] 2.0.1.007356.3.57[id number] 2.0.1.358596.3.57[id number] 2.840.1.617119.3.579.[id number] 2.840.1.043321.3.579.[id number] 2.0.1.711209.3.579.2.646206-41-2539Eldgqlp7628651 2.840.1.426547.3.579.2.866914-90-1978Zktenek6415541 2.0.1.870836.3.579.2.290987-46-9934Vfccenn8501518 2..1.939710.3.579.2.871183-47-6690Rnogrrp1609716 2..1.050159.3.579.2.159684-75-8445Ehdzmwd4472238 2..1.353468.3.579.2.226300-68-3425Rzrhncz5053257 2..1.851087.3.579.2.951215-62-0334Cwahubg4990510 2..1.927395.3.579.2.126414-85-8135Tfbaoxn430652579 2..1.275595.3.579.2.154445-40-1246Pftohcz510628651 2..1.545743.3.579.2.547093-61-8159Uovuqct361502451 2..1.126202.3.579.2.295700-34-0036Eplonae647725011 2..1.496969.3.579.2.[id number] 2..1.032242.3.579.2.196398-85-9111Iilhmra805541875 2.0.1.921389.3.579.2.490206-49-3851Xocxdhk06156691 2..840.1.474765.3.579.2.876174-72-8725Eptgzlk44388262 2..840.1.401381.3.579.2.1286 [id number] 1962Medicare [id number] 2..840.1.330804.3.579.2.531 Social History DateTypeDetailFacilityUnknown if ever smokedNort [employer] Other Start: 05-05-2020 End: 86-05-6465Qap Assigned At [facility] Charles Hospitaltart: 02-20-2022 End: 76-95-9428Rjnpnig smoking statusNever smoked tobacco (finding)[facility] HospitalTobacc smoking statusNeverCorey Hospitaltart: 40-98-8254Uvg Assigned At [facility] Hospitaltart: 02-20-2022 End: 01-97-6052Ptoilzb use and exposureSmokeless tobacco non-userUniversity Hospitals [facility] Center SystemStart: 11-17-2023 End: 81-68-5309Nsxvbxpsg beverage intakeLifetime non-drinker (finding)[facility] Centertart: 05-05-2020 End: 39-97-5120Faheaup of Social functionNovant Health Pender Medical Centertart: 76-29-2657Oriobau CommentCaffeine intake: noneSaint Mary's Health CenterStart: 1980 Sex assigned at birthNot on fileNovant Health Pender Medical Centertart: 79-71-6527NysVdhk (finding)[facility] CenterHow often do you have a drink containing alcohol?NeverAdena P[facility] Medical Center Functional Status EednOcbpwcrruzDwwgrhVhvrxbrv64-14-3905Bqhdg score [AUDIT-C]0 01/06/2025 2:12 PM EDT Arminda Major, MITCHAdena Pike Medical CenterProBet[facility]da [facility] Clinical Notes 02-07-2021 to 01-19-2025 Note Date & UiqlAwmrBmrtwlbp33-50-0256 Miscellaneous Notes* Telephone Encounter - Walter Zafar CMA - 01/19/2025 9:03 AM EDT [facility] has sent notice that Maria Teresa has denied Angus R lactulose refill. If he does not wanthim to take this anymore, we will need him to give us an order to D/C with his signature on it. If he wants us to continue to give the medication, we will need a refill ISIDORO! Would appreciate any help getting this cleared up. Thank you!! Marissa Madrigal [employer] * Telephone Encounter - SERGIO Gibbs - 01/19/2025 9:03 AM EDT I am not sure what is going on with that pharmacy. I refilled it for 6 months. Please let them know * Telephone Encounter - Walter Zafar CMA - 01/19/2025 9:03 AM EDT Notified Jacklyn Via email documented in this encounterAdena Pike Medical Center10-28-2025 Telephone encounter Note* Telephone Encounter - Walter Zafar CMA - 01/19/2025 9:03 AM EDT [facility] has sent notice that Maria Teresa has denied Angus R lactulose refill. If he does not wanthim to take this anymore, we will need him to give us an order to D/C with his signature on it. If he wants us to continue to give the medication, we will need a refill ISIDORO! Would appreciate any help getting this cleared up. Thank you!! Marissa Madrigal [employer] [facility]10-28-2025 Telephone encounter Note* Telephone Encounter - SERGIO Gibbs - 01/19/2025 9:03 AM EDT I am not sure what is going on with that pharmacy. I refilled it for 6 months. Please let them know [facility]10-28-2025 Telephone encounter Note* Telephone Encounter - Walter Zafar CMA - 01/19/2025 9:03 AM EDT Notified Jacklyn Via email [facility]10-27-2025 Miscellaneous Notes* Telephone Encounter - Harvey Ceballos CMA - 01/18/2025 10:31 AM EDT Marissa from [facility] called and wanted to know if you still wanted this pt to be on Lactulose? Their phone number is [phone].Also if you would like him to still be on it could you send in a refill order to [facility]. documented in this encounterAdena Pike Medical Center10-27-2025 Telephone encounter Note* Telephone Encounter - Harvey Ceballos CMA - 01/18/2025 10:31 AM EDT Marissa from [facility] called and wanted to know if you still wanted this pt to be on Lactulose? Their phone number is [phone].Also if you would like him to still be on it could you send in a refill order to [facility]. [facility]10-17-2025 Miscellaneous Notes* Telephone Encounter - Cathy Mitchell CMA - 01/08/2025 11:31 AM EDT Refill request for Myrbetriq to be sent to [facility]. * Telephone Encounter - KAYLEN Evans - 01/08/2025 11:31 AM EDT I sent in a refill to [facility] * Addendum Note - KAYLEN Evans - 01/08/2025 11:31 AM EDTAddended by: LOGAN CANTOR I on: 01/08/2025 12:04 PM Modules accepted: Orders documented in this encounterAdena Pike Medical Center10-17-2025 Note* Addendum Note - KAYLEN Evans - 01/08/2025 11:31 AM EDTAddended by: LOGAN CANTOR I on: 01/08/2025 12:04 PM Modules accepted: Orders [facility]10-17-2025 Telephone encounter Note* Telephone Encounter - Cathy Mitchell CMA - 01/08/2025 11:31 AM EDT Refill request for Myrbetriq to be sent to [facility]. [facility]10-17-2025 Telephone encounter Note* Telephone Encounter - KAYLEN Evans - 01/08/2025 11:31 AM EDT I sent in a refill to [facility]10-16-2025 Miscellaneous Notes* Telephone Encounter - Walter Zafar CMA - 01/07/2025 11:39 AM EDT Good afternoon!, Maria Teresa had prescribed lactulose for Angus Wang. [facility] told G[facility]gi he would send an order to [facility]. We haven't got notice that [facility] got it. Was just wondering if he remembered to send it? Marissa Madrigal [employer] * Telephone Encounter - SERGIO Gibbs - 01/07/2025 11:39 AM EDT I ordered it today. Thank you for the reminder documented in this encounterAdena Pike Medical Center10-16-2025 Telephone encounter Note* Telephone Encounter - Walter Zafar CMA - 01/07/2025 11:39 AM EDT Good afternoon!, Maria Teresa had prescribed lactulose for Angus Wang. [facility] told Giorgi he would send an order to [facility]. We haven't got notice that [facility] got it. Was just wondering if he remembered to send it? Marissa Madrigal [employer] [facility]10-16-2025 Telephone encounter Note* Telephone Encounter - SERGIO Gibbs - 01/07/2025 11:39 AM EDT I ordered it today. Thank you for the reminder [facility]10-15-2025 History of Present illness Narrative* Jonathan Keller MD - 01/06/2025 1:45 PM EDT Images from the original note were not included. [address] [place] [address] A [facility] [address] Patient: La Nena Wang Date of : 1980 Encounter Date: 01/06/2025 History of Present Illness: The patient is a 44 y.o. male, an established patient, and is here for Chief Complaint Patient presents with Follow-up . Urine incontinence. Worsening. Details as below. Medications as below as well. No dysuria no gross hematuria. No fevers. Urinalysis today: No results for input(s): EXTPOCURCO , EXTPOCURCH , EXTPOCAPP , EXTPOCURBS , EXTPOCURBIL , EXTPOCUKET , EXTPOCUSPG , EXTPOCUHGB , EXTPOCUPRO , EXTPOCUURO , EXTPOCULEU , EXTPOCUNIT , EXTPOCUWBC , EXTPOCUBLD , EXTPOCURBC , EXTPOCUCRY , EXTPOCUBAC , EXTPOCUTREP , EXTPOCUPH , EXTPOCUL EE in the last 72 hours. Last BUN and creatinine: Lab Results Component Value Date BUN 17 08/17/2024 Lab Results Component Value Date CREATININE 1.27 (H) 08/17/2024 Last PSA: Lab Results Component Value Date PSA 0.68 02/14/2024 No results found for: PROSTATICSP Past Medical, Family, and Social History Update: The following portions of the patient's history were reviewed and updated as appropriate: allergies, current medications, past family history, past medical history, past social history, past surgicalhistory and problem list. Past Medical History: Diagnosis Date ADHD (attention deficit hyperactivity disorder) Cerebral palsy ([facility]) Diabetes mellitus ([facility]) Hydrocephalus ([facility]) Hypertension Past Surgical History: Procedure Laterality Date SHUNT INSERTION Family History Family history unknown: Yes Current Outpatient Medications Medication Sig Dispense Refill amphetamine-dextroamphetamine XR (ADDERALL XR) 25 mg 24 hr capsule 1 capsule (25 mg total). cholecalciferol, vitamin D3, 2,000 units capsule Take 1 capsule (2,000 Units total) by mouth in themorning. 31 capsule 5 clonazePAM (KlonoPIN) 0.5 mg tablet cloNIDine (CATAPRES) 0.1 mg tablet acetaminophen (TYLENOL) 325 mg tablet TAKE 2 TABLETS (650MG) BY MOUTH EVERY 4 HOURS NEEDED FOR GENERAL DISCOMFORT OR TEMP GREATER THAN 100.5 *MAX 8 TABS/24HRS* 60 tablet 11 dextromethorphan-quiNIDine (NUEDEXTA) 20-10 mg capsule lactulose (CHRONULAC) 10 gram/15 mL solution Take 30 mL (20 g total) by mouth in the morning and 30mL (20 g total) before bedtime. 473 mL 0 linaCLOtide (LINZESS) 290 mcg capsule Take 1 capsule (290 mcg total) by mouth every morning before breakfast. 30 capsule 11 lisinopriL (PRINIVIL,ZESTRIL) 5 mg tablet TAKE 1 TABLET BY MOUTH ONCE EVERY DAY 31 tablet 11 LORazepam (ATIVAN) 2 mg tablet Take 1 tablet (2 mg total) by mouth See Admin Instructions. 1 tabletone hour before dental procedure. May administer additional tablet one hour later if not effective.2 tablet 0 magnesium hydroxide 400 mg/5 mL suspension TAKE 60 ML (4 TABLESPOONS) BY MOUTH ON DAY 2 NEEDED IF NO BOWEL MOVEMENT BY 8PM. Continue to take daily until BM. 473 mL 11 memantine (NAMENDA) 10 mg tablet TAKE 1 TABLET BY MOUTH TWICE DAILY (AMNESIA) OLANZapine (ZyPREXA) 15 mg tablet OLANZapine (ZyPREXA) 7.5 mg tablet polyethylene glycol (GLYCOLAX) 17 gram packet MIX 1 PACKET IN 4-8 OZ OF WATER/JUICE AND TAKE BY MOUTH ONCE EVERY DAY 30 packet 11 SENNA 8.6 mg tablet Take 1 tablet (8.6 mg total) by mouth in the morning and 1 tablet (8.6 mg total) before bedtime. Time at 8am and 8pm. 60 tablet 11 tamsulosin (FLOMAX) 0.4 mg capsule TAKE 1 CAPSULE BY MOUTH EVERY NIGHT AT 8PM FOR BPH 31 capsule 11 temazepam (RESTORIL) 30 mg capsule trospium (SANCTURA) 20 mg tablet TAKE 1 TABLET BY MOUTH EVERY NIGHT 31 tablet 11 venlafaxine XR (EFFEXOR XR) 75 mg 24 hr capsule No current facility-administered medications for this visit. (All medications reviewed and updated by provider since last office visit or hospitalization) Allergies: Patient has no known allergies. Tobacco History: Social History Tobacco Use Smoking Status Never Smokeless Tobacco Never (If patient a smoker, smoking cessation counseling offered) Social History: Social History Substance and Sexual Activity Alcohol Use Never Review of Systems: General: Negative for chills and fever. Cardiovascular: Negative for chest pain and shortness of breath. Gastrointestinal: Positive for constipation -per HPI Physical Exam: BP 117/79 Pulse 108 Ht 190.5 cm (6' 3 ) Wt 91.2 kg (201 lb) BMI 25.12 kg/m Nontoxic no apparent distress. Respirations nonlabored. Skin is dry. Awake alert oriented x3. Assessment and Plan: La Nena was seen today for follow-up. Diagnoses and all orders for this visit: Enuresis Problem List High Enuresis - Primary Overview ==== 01/06/2025 ==== baseline constipation on medication. [...] fine ultrasound fine. We did discuss cystoscopy [place] bladder solution. Mac anesthesia. There some reluctance [...] cystoscopy [facility] bladder solution. Probable mac anesthesia. Follow-up: Return clinic 3 months midlevel provider Jonathan Keller MD Established problem, worsening. Prescription drug management performed during today's office visit This note was created with the assistance of a speech recognition program. While intending to generate a timely document that accurately reflects the content of the visit, no guarantee can be provided that every grammatical or spelling mistake has been or will be identified or corrected. Thank you for your understanding. documented in this encounterA[facility] Miscellaneous Notes* Addendum Note - Christy Trejo LPN - 01/06/2025 1:45 PM EDTAddended by: CHRISTY TREJO on: 01/06/2025 02:36 PM Modules accepted: Orders documented in this encounterAdena [facility]10-15-2025 Note* Addendum Note - Christy Trejo LPN - 01/06/2025 1:45 PM EDTAddended by: CHRISTY TREJO on: 01/06/2025 02:36 PM Modules accepted: Orders [facility]10[facility] History of Present illness Narrative* SERGIO Gibbs - 01/04/2025 10:30 AM EDT IM PROGRESS NOTE Patient - La Nena Wang Age - 44 y.o. - 1980 ASSESSMENT & PLAN 1. Chronic idiopathic constipation - worsening constipation - reported it residential median formed bowel movements over the last 2 weeks. - Caregiver reports hard small stool balls on her shift - new abdominal distention today - increase milk of magnesium to 60 mL every 2nd day without bowel movement - start lactulose 30 mL b.I.d.. Hold for diarrhea. - if worsening abdominal distention, plan to get abdominal x-ray - caregiver to call if worsening symptoms. - magnesium hydroxide 400 mg/5 mL suspension; TAKE 60 ML (4 TABLESPOONS) BY MOUTH ON DAY 2 NEEDED IF NO BOWEL MOVEMENT BY 8PM. Continue to take daily until BM. Dispense: 473 mL; Refill: 11 - lactulose (CHRONULAC) 10 gram/15 mL solution; Take 30 mL (20 g total) by mouth in the morning and30 mL (20 g total) before bedtime. Dispense: 473 mL; Refill: 0 Subjective The following portions of the patient's history were reviewed and updated as appropriate: allergies, current medications, past family history, past medical history, past social history, past surgicalhistory and problem list. Patient here from residential with caregiver. Caregiver reports worsening constipation and new abdominal distention. Patient denies any abdominal pain. Caregiver states she also has been trying to useprune juice. Constipation This is a chronic problem. The problem has been gradually worsening since onset. His stool frequency is 2 to 3 times per week. The stool is described as pellet like. The patient is on a high fiber diet. He Exercises regularly. There has Been adequate water intake. Associated symptoms include bloating. Pertinent negatives include no abdominal pain, back pain, diarrhea, difficulty urinating, fecal incontinence, fever, hematochezia, hemorrhoids, nausea, rectal pain or vomiting. Risk factors include change in medication usage/dosage. He has tried laxatives, stool softeners, fiber and diet changesfor the symptoms. The treatment provided mild relief. His past medical history is significant for ps ychiatric history. Review of Systems Constitutional: Negative for activity change, appetite change, chills and fever. HENT: Negative for trouble swallowing. Eyes: Negative for pain and visual disturbance. Respiratory: Negative for cough and shortness of breath. Cardiovascular: Negative for chest pain and palpitations. Gastrointestinal: Positive for bloating and constipation. Negative for abdominal pain, diarrhea, hematochezia, hemorrhoids, nausea, rectal pain and vomiting. Genitourinary: Negative for difficulty urinating, dysuria and hematuria. Musculoskeletal: Negative for arthralgias and back pain. Skin: Negative for color change and rash. Neurological: Negative for dizziness, seizures, syncope, light-headedness and headaches. All other systems reviewed and are negative. Exam There were no vitals taken for this visit. Physical Exam Constitutional: General: He is not in acute distress. HENT: Right Ear: External ear normal. Left Ear: External ear normal. Mouth/Throat: Mouth: Mucous membranes are moist. Pharynx: Oropharynx is clear. Eyes: Conjunctiva/sclera: Conjunctivae normal. Pupils: Pupils are equal, round, and reactive to light. Cardiovascular: Rate and Rhythm: Regular rhythm. Tachycardia present. Heart sounds: No murmur heard. Pulmonary: Effort: Pulmonary effort is normal. Breath sounds: Normal breath sounds. Abdominal: General: Bowel sounds are decreased. There is distension (Firmly distended). Palpations: There is no mass. Tenderness: There is no abdominal tenderness. There is no guarding or rebound. Hernia: No hernia is present. Musculoskeletal: Right lower leg: No edema. Left lower leg: No edema. Skin: General: Skin is warm and dry. Neurological: Mental Status: He is alert. Mental status is at baseline. Meds Current Outpatient Medications: acetaminophen (TYLENOL) 325 mg tablet, TAKE 2 TABLETS (650MG) BY MOUTH EVERY 4 HOURS NEEDED FOR GENERAL DISCOMFORT OR TEMP GREATER THAN 100.5 *MAX 8 TABS/24HRS*, Disp: 60 tablet, Rfl: 11 amphetamine-dextroamphetamine XR (ADDERALL XR) 25 mg 24 hr capsule, 1 capsule (25 mg total)., Disp:, Rfl: cholecalciferol, vitamin D3, 2,000 units capsule, Take 1 capsule (2,000 Units total) by mouth in the morning., Disp: 31 capsule, Rfl: 5 clonazePAM (KlonoPIN) 0.5 mg tablet, , Disp: , Rfl: cloNIDine (CATAPRES) 0.1 mg tablet, , Disp: , Rfl: dextromethorphan-quiNIDine (NUEDEXTA) 20-10 mg capsule, , Disp: , Rfl: linaCLOtide (LINZESS) 290 mcg capsule, Take 1 capsule (290 mcg total) by mouth every morning beforebreakfast., Disp: 30 capsule, Rfl: 11 lisinopriL (PRINIVIL,ZESTRIL) 5 mg tablet, TAKE 1 TABLET BY MOUTH ONCE EVERY DAY, Disp: 31 tablet, Rfl: 11 LORazepam (ATIVAN) 2 mg tablet, Take 1 tablet (2 mg total) by mouth See Admin Instructions. 1 tablet one hour before dental procedure. May administer additional tablet one hour later if not effective., Disp: 2 tablet, Rfl: 0 magnesium hydroxide 400 mg/5 mL suspension, TAKE 45ML (3 TABLESPOONS) BY MOUTH ON DAY 2 NEEDED IF NO BOWEL MOVEMENT BY 8PM. Continue to take daily until BM., Disp: 473 mL, Rfl: 11 memantine (NAMENDA) 10 mg tablet, TAKE 1 TABLET BY MOUTH TWICE DAILY (AMNESIA), Disp: , Rfl: OLANZapine (ZyPREXA) 15 mg tablet, , Disp: , Rfl: OLANZapine (ZyPREXA) 7.5 mg tablet, , Disp: , Rfl: polyethylene glycol (GLYCOLAX) 17 gram packet, MIX 1 PACKET IN 4-8 OZ OF WATER/JUICE AND TAKE BY MOUTH ONCE EVERY DAY, Disp: 30 packet, Rfl: 11 SENNA 8.6 mg tablet, Take 1 tablet (8.6 mg total) by mouth in the morning and 1 tablet (8.6 mg total) before bedtime. Time at 8am and 8pm., Disp: 60 tablet, Rfl: 11 tamsulosin (FLOMAX) 0.4 mg capsule, TAKE 1 CAPSULE BY MOUTH EVERY NIGHT AT 8PM FOR BPH, Disp: 31 capsule, Rfl: 11 temazepam (RESTORIL) 30 mg capsule, , Disp: , Rfl: trospium (SANCTURA) 20 mg tablet, TAKE 1 TABLET BY MOUTH EVERY NIGHT, Disp: 31 tablet, Rfl: 11 venlafaxine XR (EFFEXOR XR) 75 mg 24 hr capsule, , Disp: , Rfl: clozapine (CLOZARIL) 50 MG tablet, , Disp: , Rfl: LORazepam (ATIVAN) 2 mg tablet, Take 1 tablet (2 mg total) by mouth See Admin Instructions. Administer 1 tablet one hour before dental procedure. May administer additional tablet one hour later if not effective. (Patient not taking: Reported on 01/04/2025), Disp: 2 tablet, Rfl: 0 memantine (NAMENDA) 5 mg tablet, , Disp: , Rfl: OLANZapine (ZyPREXA) 10 mg tablet, 1.5 tablets (15 mg total). (Patient not taking: Reported on 01/04/2025), Disp: , Rfl: OLANZapine (ZyPREXA) 5 mg tablet, Take 1 tablet (5 mg total) by mouth. (Patient not taking: Reported on 01/04/2025), Disp: , Rfl: Lab Results No visits with results within 1 Month(s) from this visit. Latest known visit with results is: Admission on 08/17/2024, Discharged on 08/17/2024 Component Date Value Ref Range Status WBC 08/17/2024 8.7 4 - 11 x10E9/L Final RBC Count 08/17/2024 4.82 4.1 - 5.7 X10E12/L Final Hemoglobin 08/17/2024 14.1 13 - 17 g/dL Final Hematocrit 08/17/2024 41.3 39 - 50 % Final MCV 08/17/2024 86 80 - 100 fL Final MCH 08/17/2024 29.2 27 - 34 pg Final MCHC 08/17/2024 34.1 32 - 36 g/dL Final RDW 08/17/2024 13.8 11.5 - 15 % Final Platelet Count 08/17/2024 188 150 - 450 X10E9/L Final MPV 08/17/2024 7.4 7 - 12 fL Final Neutrophils % 08/17/2024 58.6 % Final Lymphocytes % 08/17/2024 30.9 % Final Monocytes % 08/17/2024 7.0 % Final Eosinophils % 08/17/2024 2.9 % Final Basophils % 08/17/2024 0.6 % Final Neutrophils Absolute (A) 08/17/2024 5.1 1.5 - 6.6 10*3/uL Final Lymphocytes Absolute 08/17/2024 2.7 1.0 - 3.5 10*3/uL Final Monocytes Absolute 08/17/2024 0.6 0.0 - 0.9 10*3/uL Final Eosinophils Absolute 08/17/2024 0.3 0.0 - 0.4 10*3/uL Final Basophils Absolute 08/17/2024 0.1 0.0 - 0.2 10*3/uL Final Differential Type 08/17/2024 AUTOMATED DIFFERENTIAL Final SODIUM 08/17/2024 133 (L) 134 - 146 mmol/L Final POTASSIUM 08/17/2024 4.0 3.5 - 5.0 mmol/L Final CHLORIDE 08/17/2024 101 98 - 109 mmol/L Final CARBON DIOXIDE 08/17/2024 27 22 - 32 mmol/L Final ANION GAP 08/17/2024 5 5 - 15 mmol/L Final BLOOD UREA NITROGEN 08/17/2024 17 5 - 23 mg/dL Final CREATININE 08/17/2024 1.27 (H) 0.70 - 1.20 mg/dL Final GLUCOSE 08/17/2024 119 (H) 65 - 99 mg/dL Final CALCIUM 08/17/2024 8.9 8.5 - 10.5 mg/dL Final TOTAL PROTEIN 08/17/2024 7.4 6.0 - 8.0 g/dL Final ALBUMIN 08/17/2024 4.6 3.2 - 5.3 g/dL Final ALKALINE PHOSPHATASE 08/17/2024 77 39 - 130 U/L Final AST 08/17/2024 19 <=41 U/L Final ALT 08/17/2024 16 <=40 U/L Final BILIRUBIN,TOTAL 08/17/2024 0.6 0.3 - 1.2 mg/dL Final EGFR Non-Race Dependent 08/17/2024 71 >=60 ml/min/1.73sq.m Final ETHANOL 08/17/2024 <0.010 <=0.080 g/dL Final Extra Tube 08/17/2024 Auto Resulted Final Extra Tube 08/17/2024 Auto Resulted Final Other Testing No results found. No follow-ups on file. [facility]: [phone] This note is dictated with the use of M*Modal. Please note that this dictation was completed with computer voice recognition software. Quite often unanticipated grammatical, syntax, homophones, and other interpretive errors are inadvertently transcribed by the computer software. Please disregard these errors. Please excuse any errors that have escaped final proofreading. SERGIO Gibbs 01/04/25 1120 documented in this encounterAdena [facility]07-22-2025 History of Present illness Narrative* SERGIO Gibbs - 10/13/2024 9:40 AM EDT IM PROGRESS NOTE Patient - La Nena Wang Age - 44 y.o. - 1980 ASSESSMENT & PLAN 1. Primary hypertension (Primary) - Blood pressure well controlled - continue home lisinopril 2. Chronic idiopathic constipation - clarification to milk of magnesia - magnesium hydroxide 400 mg/5 mL suspension; TAKE 45ML (3 TABLESPOONS) BY MOUTH ON DAY 2 NEEDEDIF NO BOWEL MOVEMENT BY 8PM. Continue to take daily until BM. Dispense: 473 mL; Refill: 11 Subjective The following portions of the patient's history were reviewed and updated as appropriate: allergies, current medications, past family history, past medical history, past social history, past surgicalhistory and problem list. Reviewed list with caregiver who is with him at the office today CARDIOVASCULAR FOLLOW-UP This is a follow up of a pre-existing problem. Blood pressures are not being checked outside the office. Caregiver at bedside and states no obvious symptoms. The 10-year ASCVD risk score (Mary BARTH, et al., 2019) is: 2.1% Values used to calculate the score: Age: 44 years Sex: Male Is Non- : No Diabetic: No Tobacco smoker: No Systolic Blood Pressure: 130 mmHg Is BP treated: Yes HDL Cholesterol: 40 mg/dL Total Cholesterol: 145 mg/dL Patient reports following dosing instructions Physical activity: Exercise is limited by neurologic condition(s): cerebral palsy. Dietary efforts show eats a balanced diet. CV symptoms review was negative for rapid or irregular heart rate, palpitations, syncope Review of Systems Constitutional: Negative for activity change, appetite change, chills and fever. HENT: Negative for trouble swallowing. Eyes: Negative for pain and visual disturbance. Respiratory: Negative for cough and shortness of breath. Cardiovascular: Negative for chest pain and palpitations. Gastrointestinal: Positive for constipation. Negative for abdominal pain and vomiting. Genitourinary: Negative for dysuria and hematuria. Musculoskeletal: Negative for arthralgias and back pain. Skin: Negative for color change and rash. Neurological: Negative for dizziness, seizures, syncope, light-headedness and headaches. All other systems reviewed and are negative. Exam BP 130/82 (BP Site: Left Arm, BP Postition: Sitting, BP CUFF SIZE: S (7-9 inches)) Pulse 108 Temp 36.6 C (97.8 F) (Tympanic) Resp 18 Ht 190.5 cm (6' 3 ) Wt 93.4 kg (205 lb 12.8 oz) SpO2 98% BMI 25.72 kg/m Physical Exam Constitutional: General: He is not in acute distress. HENT: Right Ear: External ear normal. Left Ear: External ear normal. Mouth/Throat: Mouth: Mucous membranes are moist. Pharynx: Oropharynx is clear. Eyes: Conjunctiva/sclera: Conjunctivae normal. Pupils: Pupils are equal, round, and reactive to light. Cardiovascular: Rate and Rhythm: Regular rhythm. Tachycardia present. Heart sounds: No murmur heard. Pulmonary: Effort: Pulmonary effort is normal. Breath sounds: Normal breath sounds. Musculoskeletal: Right lower leg: No edema. Left lower leg: No edema. Skin: General: Skin is warm and dry. Neurological: Mental Status: He is alert. Mental status is at baseline. Meds Current Outpatient Medications: acetaminophen (TYLENOL) 325 mg tablet, TAKE 2 TABLETS (650MG) BY MOUTH EVERY 4 HOURS NEEDED FOR GENERAL DISCOMFORT OR TEMP GREATER THAN 100.5 *MAX 8 TABS/24HRS*, Disp: 60 tablet, Rfl: 11 amphetamine-dextroamphetamine XR (ADDERALL XR) 25 mg 24 hr capsule, 1 capsule (25 mg total)., Disp:, Rfl: cholecalciferol, vitamin D3, 2,000 units capsule, take 1 capsule by mouth every morning, Disp: 31 capsule, Rfl: 11 clonazePAM (KlonoPIN) 0.5 mg tablet, , Disp: , Rfl: cloNIDine (CATAPRES) 0.1 mg tablet, , Disp: , Rfl: clozapine (CLOZARIL) 50 MG tablet, , Disp: , Rfl: dextromethorphan-quiNIDine (NUEDEXTA) 20-10 mg capsule, , Disp: , Rfl: LINZESS 290 mcg capsule, (MUST BE LEFT IN ORIGINAL PACKAGE) TAKE 1 CAPSULE BY MOUTH ONCE EVERY DAY,Disp: 30 capsule, Rfl: 11 lisinopriL (PRINIVIL,ZESTRIL) 5 mg tablet, TAKE 1 TABLET BY MOUTH ONCE EVERY DAY, Disp: 31 tablet, Rfl: 11 LORazepam (ATIVAN) 2 mg tablet, Take 1 tablet (2 mg total) by mouth See Admin Instructions. Administer 1 tablet one hour before dental procedure. May administer additional tablet one hour later if not effective., Disp: 2 tablet, Rfl: 0 LORazepam (ATIVAN) 2 mg tablet, Take 1 tablet (2 mg total) by mouth See Admin Instructions. 1 tablet one hour before dental procedure. May administer additional tablet one hour later if not effective., Disp: 2 tablet, Rfl: 0 memantine (NAMENDA) 5 mg tablet, , Disp: , Rfl: OLANZapine (ZyPREXA) 10 mg tablet, 1.5 tablets (15 mg total)., Disp: , Rfl: OLANZapine (ZyPREXA) 5 mg tablet, Take 1 tablet (5 mg total) by mouth., Disp: , Rfl: polyethylene glycol (GLYCOLAX) 17 gram packet, MIX 1 PACKET IN 4-8 OZ OF WATER/JUICE AND TAKE BY MOUTH ONCE EVERY DAY, Disp: 30 packet, Rfl: 11 SENNA 8.6 mg tablet, Take 1 tablet (8.6 mg total) by mouth in the morning and 1 tablet (8.6 mg total) before bedtime. Time at 8am and 8pm., Disp: 60 tablet, Rfl: 11 tamsulosin (FLOMAX) 0.4 mg capsule, TAKE 1 CAPSULE BY MOUTH EVERY NIGHT AT 8PM FOR BPH, Disp: 31 capsule, Rfl: 11 temazepam (RESTORIL) 30 mg capsule, , Disp: , Rfl: trospium (SANCTURA) 20 mg tablet, TAKE 1 TABLET BY MOUTH EVERY NIGHT, Disp: 31 tablet, Rfl: 11 venlafaxine XR (EFFEXOR XR) 75 mg 24 hr capsule, , Disp: , Rfl: magnesium hydroxide 400 mg/5 mL suspension, TAKE 45ML (3 TABLESPOONS) BY MOUTH ON DAY 2 NEEDED IF NO BOWEL MOVEMENT BY 8PM. Continue to take daily until BM., Disp: 473 mL, Rfl: 11 Lab Results No visits with results within 1 Month(s) from this visit. Latest known visit with results is: Admission on 08/17/2024, Discharged on 08/17/2024 Component Date Value Ref Range Status WBC 08/17/2024 8.7 4 - 11 x10E9/L Final RBC Count 08/17/2024 4.82 4.1 - 5.7 X10E12/L Final Hemoglobin 08/17/2024 14.1 13 - 17 g/dL Final Hematocrit 08/17/2024 41.3 39 - 50 % Final MCV 08/17/2024 86 80 - 100 fL Final MCH 08/17/2024 29.2 27 - 34 pg Final MCHC 08/17/2024 34.1 32 - 36 g/dL Final RDW 08/17/2024 13.8 11.5 - 15 % Final Platelet Count 08/17/2024 188 150 - 450 X10E9/L Final MPV 08/17/2024 7.4 7 - 12 fL Final Neutrophils % 08/17/2024 58.6 % Final Lymphocytes % 08/17/2024 30.9 % Final Monocytes % 08/17/2024 7.0 % Final Eosinophils % 08/17/2024 2.9 % Final Basophils % 08/17/2024 0.6 % Final Neutrophils Absolute (A) 08/17/2024 5.1 1.5 - 6.6 10*3/uL Final Lymphocytes Absolute 08/17/2024 2.7 1.0 - 3.5 10*3/uL Final Monocytes Absolute 08/17/2024 0.6 0.0 - 0.9 10*3/uL Final Eosinophils Absolute 08/17/2024 0.3 0.0 - 0.4 10*3/uL Final Basophils Absolute 08/17/2024 0.1 0.0 - 0.2 10*3/uL Final Differential Type 08/17/2024 AUTOMATED DIFFERENTIAL Final SODIUM 08/17/2024 133 (L) 134 - 146 mmol/L Final POTASSIUM 08/17/2024 4.0 3.5 - 5.0 mmol/L Final CHLORIDE 08/17/2024 101 98 - 109 mmol/L Final CARBON DIOXIDE 08/17/2024 27 22 - 32 mmol/L Final ANION GAP 08/17/2024 5 5 - 15 mmol/L Final BLOOD UREA NITROGEN 08/17/2024 17 5 - 23 mg/dL Final CREATININE 08/17/2024 1.27 (H) 0.70 - 1.20 mg/dL Final GLUCOSE 08/17/2024 119 (H) 65 - 99 mg/dL Final CALCIUM 08/17/2024 8.9 8.5 - 10.5 mg/dL Final TOTAL PROTEIN 08/17/2024 7.4 6.0 - 8.0 g/dL Final ALBUMIN 08/17/2024 4.6 3.2 - 5.3 g/dL Final ALKALINE PHOSPHATASE 08/17/2024 77 39 - 130 U/L Final AST 08/17/2024 19 <=41 U/L Final ALT 08/17/2024 16 <=40 U/L Final BILIRUBIN,TOTAL 08/17/2024 0.6 0.3 - 1.2 mg/dL Final EGFR Non-Race Dependent 08/17/2024 71 >=60 ml/min/1.73sq.m Final ETHANOL 08/17/2024 <0.010 <=0.080 g/dL Final Extra Tube 08/17/2024 Auto Resulted Final Extra Tube 08/17/2024 Auto Resulted Final Other Testing No results found. Return in about 6 months (around 04/15/2025) for Annual physical. [facility]: [phone] This note is dictated with the use of M*Modal. Please note that this dictation was completed with computer voice recognition software. Quite often unanticipated grammatical, syntax, homophones, and other interpretive errors are inadvertently transcribed by the computer software. Please disregard these errors. Please excuse any errors that have escaped final proofreading. SERGIO Gibbs 10/13/24 1114 documented in this encounterAdena [facility] Center07-10-2025 History of Present illness Narrative* Antione Dyer DPM - 10/01/2024 2:30 PM EDT Images from the original note were not included. Subjective Patient ID: La Nena Wang is a 44 y.o. male who presents for Nail care ( La Nena Wang is a44 y.o. male who presents for Nail care. Care support Juve is present. ). HPI HPI Onychomycosis/Toenail Fungus: Symptomatic toenail deformity. Location: All digits are identified as problematic/symptomatic. Duration: Insidious, chronic stable deformity multiple years duration. Severity of symptoms: mild-moderate, impacting his ability to wear most shoes comfortably. Onset: gradual, without injury or trauma. Status: Problematic/symptomatic over the past several weeks or so. Context: hard to trim , hard to reach; self-care is difficult and not practical; exposing patient to considerable risk. Care staff unable to provide care . Characteristics: elongated, discolored, thickened, pain , ingrowing, pressure; without bleeding or drainage. Relieved by: palliative care measures provide effective transient symptom relief. Previous Treatment: palliative care as noted. Risk factors: Medical comorbidities. Polypharmacy. Mobility, flexibility and dexterity restraints. digital deformity. Forefoot deformity. 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 toenail deformity. Shoe and/or digital trauma and related complications. Aggravated by: shoe gear , pressure, walking, snagging on clothing etc. . Medications Current Outpatient Medications: OLANZapine (ZyPREXA) 15 MG tablet, , Disp: , Rfl: acetaminophen (Tylenol) 325 MG tablet, Take 325 mg by mouth every 4 (four) hours if needed for mildpain, Disp: , Rfl: amoxicillin (Amoxil) 500 MG capsule, Take by mouth (Patient not taking: Reported on 06/23/2024), Disp: , Rfl: amphetamine-dextroamphetamine XR (Adderall XR) 25 MG 24 hr capsule, 25 mg, Disp: , Rfl: cholecalciferol (Vitamin D-3) 50 MCG (1999 UT) capsule, Take 1 capsule by mouth in the morning., Disp: , Rfl: clonazePAM (KlonoPIN) 0.5 MG disintegrating tablet, Take 0.5 mg by mouth 1 (one) time each day at the same time., Disp: , Rfl: cloNIDine (Catapres) 0.1 MG tablet, 0.1 mg 1 (one) time each day at the same time., Disp: , Rfl: cloZAPine (Clozaril) 50 MG tablet, Take 50 mg by mouth Daily (Patient not taking: Reported on 06/23/2024), Disp: , Rfl: dextroamphetamine ER (Dexedrine Spansule) 10 MG 24 hr capsule, 10 mg (Patient not taking: Reported on 06/23/2024), Disp: , Rfl: Dextromethorphan-quiNIDine (Nuedexta) 20-10 MG capsule, Take 1 capsule BID, Disp: 62 capsule, Rfl: 2 linaCLOtide (Linzess) 290 MCG capsule, 290 mcg 1 (one) time each day at the same time., Disp: , Rfl: lisinopril 5 MG tablet, Take 5 mg by mouth Daily, Disp: , Rfl: LORazepam (Ativan) 2 MG tablet, Take 2 mg by mouth See administration instructions (Patient not taking: Reported on 06/23/2024), Disp: , Rfl: magnesium hydroxide (Milk of Magnesia) 400 MG/5ML suspension, every 6 (six) hours., Disp: , Rfl: memantine (Namenda) 10 MG tablet, TAKE 1 TABLET BY MOUTH TWICE DAILY (AMNESIA), Disp: 60 tablet, Rfl: 2 memantine (Namenda) 5 MG tablet, Take 5 mg by mouth 1 (one) time each day at the same time, Disp: ,Rfl: mupirocin (Bactroban) 2 % ointment, every 8 (eight) hours (Patient not taking: Reported on 06/23/2024), Disp: , Rfl: naltrexone (Depade) 50 MG tablet, Take 50 mg by mouth Daily (Patient not taking: Reported on 06/23/2024), Disp: , Rfl: OLANZapine (ZyPREXA) 5 MG tablet, Take 5 mg by mouth 1 (one) time each day at the same time, Disp: , Rfl: Polyethylene Glycol powder, Polyethylene Glycol -, Disp: , Rfl: senna-docusate (Rowan-Colace) 8.6-50 MG tablet, 1 tablet 1 (one) time each day at the same time., Disp: , Rfl: tamsulosin (Flomax) 0.4 MG 24 hr capsule, Take 0.4 mg by mouth at bedtime (Patient not taking: Reported on 06/23/2024), Disp: , Rfl: temazepam (Restoril) 15 MG capsule, Take 30 mg by mouth 1 (one) time each day at the same time, Disp: , Rfl: temazepam (Restoril) 30 MG capsule, Take 30 mg by mouth 1 (one) time each day at the same time. (Patient not taking: Reported on 06/23/2024), Disp: , Rfl: trospium (Sanctura) 20 MG tablet, Take 20 mg by mouth in the morning and 20 mg before bedtime., Disp: , Rfl: venlafaxine (Effexor) 75 MG tablet, Take 75 mg by mouth every 12 (twelve) hours (Patient not taking: Reported on 06/23/2024), Disp: , Rfl: Allergies Patient has no known allergies. Past Surgical History Past Surgical History: Procedure Laterality Date VENTRICULOPERITONEAL SHUNT Family History Family History Problem Relation Name Age of Onset Cancer Mother Objective General Examination: GENERAL EXAMINATION: Alert and oriented. Pleasant cooperative disposition. Accompanied by his caregiver, Giorgi. Vascular: DORSALIS PEDIS PULSE: bilaterally, 2/4. POSTERIOR TIBIAL PULSE: bilaterally, 2/4. TEMPERATURE GRADIENT: warm to warm. EDEMA: Unremarkable for ankle or pedal edema. CAPILLARY FILLING TIME(sec): capillary fill intact bilateral digits less than 3 secs. Neurologic: MUSCLE POWER: No focal deficits. SHARP SENSATION: Tactile and soft touch sensation intact. Dermatologic: SKIN FINDINGS: Intact, skin turgor is good. HYPERTROPHIC LESION: No forefoot or digital keratotic pressure lesions are noted. NAIL PATHOLOGY: All digits: none are spared: varying degrees of toenail dystrophy, elongation, hypertrophy, discoloration, thickening, clubbing, crumbly texture, friability, marginal cryptosis and tenderness, periungual hyperkeratosis, without drainage. MYCOSIS SCALE: total with debris; multiple digits. INTERDIGITAL MACERATION: Clean and dry. SKIN PATHOLOGY: texture, turgor, hair growth, within normal limits. Ankle / Foot: FOOT: long-standing HAV/bunion deformity bilateral; with multiple semi-rigid digital contractures. RANGE OF MOTION: Functional passive range of motion without pain. Radiology: Assessment/Plan 1. Symptomatic onychodystrophy/mycosis of multiple digits. Plan: Clinical Notes: conservative and palliative care measures are preferred, understood and againindicated. Procedure: Toenail Debridement: Aseptic technique: power/manual instrumentation: onychodebridement length and thickness, curretage of offending crypotic margins, rowan-ungual debris, providing effective pressure and symptom relief, reducing shoe and digital trauma. This note was created with the assistance of a speech recognition program. While intending to generate a timely document that accurately reflects the content of the visit, no guarantee can be provided that every grammatical or spelling mistake has been or will be identified or corrected. Thank you for your understanding. Antione Dyer DPM documented in this encounterSaint Mary's Health [id number] Miscellaneous Notes* Telephone Encounter - Walter Zafar CMA - 09/01/2024 1:05 PM EDT Staff called and stated that patient has an apt with the dentist 09/09/24 and they need his ativan and amoxicillin filled. It needs to go to [facility] * Telephone Encounter - SERGIO Leon - 09/01/2024 1:05 PM EDT Done [facility] Tele[facility] encounter Note* Telephone Encounter - Walter Zafar CMA - 09/01/2024 1:05 PM EDT Staff called and stated that patient has an apt with the dentist 09/09/24 and they need his ativan and amoxicillin filled. It needs to go to [facility]06[facility] Telephone encounter Note* Telephone Encounter - SERGIO Leon - 09/01/2024 1:05 PM EDT Done [facility]04-09[facility] Evaluation + Plan note* Assessment & Plan Note - KAYLEN Evans - 07/01/2024 1:44 PM EDTAssociated Problem(s): Enuresis His caregiver reports that he still has enuresis but not as often as before. He reports that he is doing well and wants to continue with the medication. [facility]04-09-2025 Miscellaneous Notes* Assessment & Plan Note - KAYLEN Evans - 07/01/2024 1:44 PM EDTAssociated Problem(s): Enuresis His caregiver reports that he still has enuresis but not as often as before. He reports that he is doing well and wants to continue with the medication. documented in this encounterKindred HealthcareHotPads Deckerville Community [id number] History of Present illness Narrative* KAYLEN Evans - 07/01/2024 1:00 PM EDT Images from the original note were not included. [id number] [place] [address] [address] [facility] [id number] Patient: La Nena Wang Date of : 1980 Encounter Date: 07/01/2024 History of Present Illness: The patient is a 44 y.o. male, an established patient, and is here for follow- up. Has a history of enuresis and saw Dr. Keller 04/08/2024. He was started on trospium 20 mg at night. Renal ultrasound 02/14/2024 was unremarkable. PVR 72.. He is here today with his caregiver Giorgi whom helps with his history. She reports that the trospium is working well. She is being told by third shift that he still has enuresis but not as often. No side effects. PVR 0 Urinalysis today: No results for input(s): EXTPOCURCO , EXTPOCURCH , EXTPOCAPP , EXTPOCURBS , EXTPOCURBIL , EXTPOCUKET , EXTPOCUSPG , EXTPOCUHGB , EXTPOCUPRO , EXTPOCUURO , EXTPOCULEU , EXTPOCUNIT , EXTPOCUWBC , EXTPOCUBLD , EXTPOCURBC , EXTPOCUCRY , EXTPOCUBAC , EXTPOCUTREP , EXTPOCUPH in the last 72 hours. Last BUN and creatinine: Lab Results Component Value Date BUN 16 10/10/2023 Lab Results Component Value Date CREATININE 1.32 (H) 10/10/2023 Last PSA: Lab Results Component Value Date PSA 0.68 02/14/2024 No results found for: PROSTATICSP Past Medical, Family, and Social History Update: The following portions of the patient's history were reviewed and updated as appropriate: allergies, current medications, past family history, past medical history, past social history, past surgicalhistory and problem list. Past Medical History: Diagnosis Date ADHD (attention deficit hyperactivity disorder) Cerebral palsy ([facility]) Diabetes mellitus ([facility]) Hydrocephalus ([facility]) Hypertension Past Surgical History: Procedure Laterality Date SHUNT INSERTION Family History Family history unknown: Yes Current Outpatient Medications Medication Sig Dispense Refill amphetamine-dextroamphetamine XR (ADDERALL XR) 25 mg 24 hr capsule 1 capsule (25 mg total). LINZESS 290 mcg capsule (MUST BE LEFT IN ORIGINAL PACKAGE) TAKE 1 CAPSULE BY MOUTH ONCE EVERY DAY 30 capsule 11 lisinopriL (PRINIVIL,ZESTRIL) 5 mg tablet TAKE 1 TABLET BY MOUTH ONCE EVERY DAY 31 tablet 11 LORazepam (ATIVAN) 2 mg tablet Take 1 tablet (2 mg total) by mouth See Admin Instructions. Administer 1 tablet one hour before dental procedure. May administer additional tablet one hour later if noteffective. 2 tablet 0 magnesium hydroxide 400 mg/5 mL suspension TAKE 45ML (3 TABLESPOONS) BY MOUTH ON DAY 2 NEEDED IFNOT BOWEL MOVEMENT BY 8PM 473 mL 11 memantine (NAMENDA) 5 mg tablet 1 tablet Orally Once a day OLANZapine (ZyPREXA) 10 mg tablet OLANZapine (ZyPREXA) 5 mg tablet Take 1 tablet (5 mg total) by mouth. polyethylene glycol (GLYCOLAX) 17 gram packet MIX 1 PACKET IN 4-8 OZ OF WATER/JUICE AND TAKE BY MOUTH ONCE EVERY DAY 30 packet 11 SENNA 8.6 mg tablet Take 1 tablet (8.6 mg total) by mouth in the morning and 1 tablet (8.6 mg total) before bedtime. Time at 8am and 8pm. 60 tablet 11 tamsulosin (FLOMAX) 0.4 mg capsule Take 1 capsule (0.4 mg total) by mouth nightly. At 8pm 30 capsule 11 temazepam (RESTORIL) 30 mg capsule trospium (SANCTURA) 20 mg tablet Take 1 tablet (20 mg total) by mouth nightly. 30 tablet 3 venlafaxine XR (EFFEXOR XR) 75 mg 24 hr capsule acetaminophen (TYLENOL) 325 mg tablet TAKE 2 TABLETS (650MG) BY MOUTH EVERY 4 HOURS NEEDED FOR GENERAL DISCOMFORT OR TEMP GREATER THAN 100.5 *MAX 8 TABS/24HRS* 60 tablet 11 amoxicillin (AMOXIL) 500 mg capsule Only when he is having a dental procedure. cholecalciferol, vitamin D3, 2,000 units capsule take 1 capsule by mouth every morning 31 capsule 11 clonazePAM (KlonoPIN) 0.5 mg tablet cloNIDine (CATAPRES) 0.1 mg tablet clozapine (CLOZARIL) 50 MG tablet 1 tablet Orally Once a day dextromethorphan-quiNIDine (NUEDEXTA) 20-10 mg capsule Nuedexta LORazepam (ATIVAN) 2 mg tablet Take 1 tablet (2 mg total) by mouth See Admin Instructions. 1 tabletone hour before dental procedure. May administer additional tablet one hour later if not effective.(Patient not taking: Reported on 07/01/2024) 2 tablet 0 No current facility-administered medications for this visit. (All medications reviewed and updated by provider since last office visit or hospitalization) Allergies: Patient has no known allergies. Tobacco History: Social History Tobacco Use Smoking Status Never Smokeless Tobacco Never (If patient a smoker, smoking cessation counseling offered) Social History: Social History Substance and Sexual Activity Alcohol Use Never Review of Systems: General: Negative for chills and fever. Cardiovascular: Negative for chest pain and shortness of breath. Gastrointestinal: Positive for constipation Physical Exam: BP 110/75 Pulse 105 Ht 190.5 cm (6' 3 ) Wt 93.9 kg (207 lb) BMI 25.87 kg/m Constitutional: He appears well-developed. No distress. Pulmonary/Chest: Effort normal. No respiratory distress. Neurological: He is alert and oriented for age. Gait normal. Nursing note and vitals reviewed. Assessment and Plan: La Nena was seen today for follow-up. Diagnoses and all orders for this visit: Enuresis Problem List Genitourinary Enuresis - Primary Overview ====07/01/24====Improvement with trospium. PVR 0. Content with current state ==== 04/08/2024 ==== enuresis continues. Culture fine PSA fine ultrasound fine. We did discuss cystoscopy [place] bladder solution. Mac anesthesia. There some reluctance [...] cystoscopy [place] bladder solution. Probable mac anesthesia. Current Assessment & Plan His caregiver reports that he still has enuresis but not as often as before. He reports that he is doing well and wants to continue with the medication. KAYLEN EVANS This note was created with the assistance of a speech recognition program. While intending to generate a timely document that accurately reflects the content of the visit, no guarantee can be provided that every grammatical or spelling mistake has been or will be identified or corrected. Thank you for your understanding. KAYLEN Evans 07/01/24 [id number] documented in this encounterAdena [facility]04-04-2025 Miscellaneous Notes* Telephone Encounter - Christy Trejo LPN - 06/26/2024 10:37 AM EDT Pt.'s pharmacy is requesting a refill. Thank you. Christy documented in this encounterAdena [facility] Center04-04-2025 Telephone encounter Note* Telephone Encounter - Christy Trejo LPN - 06/26/2024 10:37 AM EDT Pt.'s pharmacy is requesting a refill. Thank you. Christy [facility]04-[facility] History of Present illness Narrative* Antione Dyer DPM - 06/23/2024 2:30 PM EDT Images from the original note were not included. Subjective Patient ID: La Nena Wang is a 44 y.o. male who presents for No chief complaint on file.. HPI HPI Onychomycosis/Toenail Fungus: Symptomatic toenail deformity. Location: All digits are identified as problematic/symptomatic. Duration: Insidious, chronic stable deformity multiple years duration. Severity of symptoms: mild-moderate, impacting his ability to wear most shoes comfortably. Onset: gradual, without injury or trauma. Status: Problematic/symptomatic over the past month or so. Context: hard to trim , hard to reach; self-care is difficult and not practical; exposing patient to considerable risk. Care staff unable to provide care . Characteristics: elongated, discolored, thickened, pain , ingrowing, pressure; without bleeding or drainage. Relieved by: palliative care measures provide effective transient symptom relief. Previous Treatment: palliative care as noted. Risk factors: Medical comorbidities. Polypharmacy. Mobility, flexibility and dexterity restraints. digital deformity. Forefoot deformity. 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 toenail deformity. Shoe and/or digital trauma and related complications. Aggravated by: shoe gear , pressure, walking, snagging on clothing etc. . Medications Current Outpatient Medications: acetaminophen (Tylenol) 325 MG tablet, Take 325 mg by mouth every 4 (four) hours if needed for mildpain, Disp: , Rfl: amphetamine-dextroamphetamine XR (Adderall XR) 25 MG 24 hr capsule, 25 mg, Disp: , Rfl: cholecalciferol (Vitamin D-3) 50 MCG (2000 UT) capsule, Take 1 capsule by mouth in the morning., Disp: , Rfl: clonazePAM (KlonoPIN) 0.5 MG disintegrating tablet, Take 0.5 mg by mouth 1 (one) time each day at the same time., Disp: , Rfl: cloNIDine (Catapres) 0.1 MG tablet, 0.1 mg 1 (one) time each day at the same time., Disp: , Rfl: Dextromethorphan-quiNIDine (Nuedexta) 20-10 MG capsule, TAKE 1 CAPSULE BY MOUTH TWICE DAILY (AMNESIA), Disp: 62 capsule, Rfl: 2 linaCLOtide (Linzess) 290 MCG capsule, 290 mcg 1 (one) time each day at the same time., Disp: , Rfl: lisinopril 5 MG tablet, Take 5 mg by mouth Daily, Disp: , Rfl: magnesium hydroxide (Milk of Magnesia) 400 MG/5ML suspension, every 6 (six) hours., Disp: , Rfl: memantine (Namenda) 10 MG tablet, TAKE 1 TABLET BY MOUTH TWICE DAILY (AMNESIA), Disp: 62 tablet, Rfl: 2 memantine (Namenda) 5 MG tablet, Take 5 mg by mouth 1 (one) time each day at the same time, Disp: ,Rfl: OLANZapine (ZyPREXA) 5 MG tablet, Take 5 mg by mouth 1 (one) time each day at the same time, Disp: , Rfl: Polyethylene Glycol powder, Polyethylene Glycol -, Disp: , Rfl: senna-docusate (Rowan-Colace) 8.6-50 MG tablet, 1 tablet 1 (one) time each day at the same time., Disp: , Rfl: temazepam (Restoril) 15 MG capsule, Take 30 mg by mouth 1 (one) time each day at the same time, Disp: , Rfl: trospium (Sanctura) 20 MG tablet, Take 20 mg by mouth in the morning and 20 mg before bedtime., Disp: , Rfl: amoxicillin (Amoxil) 500 MG capsule, Take by mouth (Patient not taking: Reported on 06/23/2024), Disp: , Rfl: cloZAPine (Clozaril) 50 MG tablet, Take 50 mg by mouth Daily (Patient not taking: Reported on 06/23/2024), Disp: , Rfl: dextroamphetamine ER (Dexedrine Spansule) 10 MG 24 hr capsule, 10 mg (Patient not taking: Reported on 06/23/2024), Disp: , Rfl: LORazepam (Ativan) 2 MG tablet, Take 2 mg by mouth See administration instructions (Patient not taking: Reported on 06/23/2024), Disp: , Rfl: mupirocin (Bactroban) 2 % ointment, every 8 (eight) hours (Patient not taking: Reported on 06/23/2024), Disp: , Rfl: naltrexone (Depade) 50 MG tablet, Take 50 mg by mouth Daily (Patient not taking: Reported on 06/23/2024), Disp: , Rfl: tamsulosin (Flomax) 0.4 MG 24 hr capsule, Take 0.4 mg by mouth at bedtime (Patient not taking: Reported on 06/23/2024), Disp: , Rfl: temazepam (Restoril) 30 MG capsule, Take 30 mg by mouth 1 (one) time each day at the same time. (Patient not taking: Reported on 06/23/2024), Disp: , Rfl: venlafaxine (Effexor) 75 MG tablet, Take 75 mg by mouth every 12 (twelve) hours (Patient not taking: Reported on 06/23/2024), Disp: , Rfl: Allergies Patient has no known allergies. Past Surgical History Past Surgical History: Procedure Laterality Date VENTRICULOPERITONEAL SHUNT Family History Family History Problem Relation Name Age of Onset Cancer Mother Objective General Examination: GENERAL EXAMINATION: Alert and oriented. Pleasant cooperative disposition. Accompanied by his caregiver, Giorgi. Vascular: DORSALIS PEDIS PULSE: bilaterally, 2/4. POSTERIOR TIBIAL PULSE: bilaterally, 2/4. TEMPERATURE GRADIENT: warm to warm. EDEMA: Unremarkable for ankle or pedal edema. CAPILLARY FILLING TIME(sec): capillary fill intact bilateral digits less than 3 secs. Neurologic: MUSCLE POWER: No focal deficits. SHARP SENSATION: Tactile and soft touch sensation intact. Dermatologic: SKIN FINDINGS: Intact, skin turgor is good. HYPERTROPHIC LESION: No forefoot or digital keratotic pressure lesions are noted. NAIL PATHOLOGY: All digits: none are spared: varying degrees of toenail dystrophy, elongation, hypertrophy, discoloration, thickening, clubbing, crumbly texture, friability, marginal cryptosis and tenderness, periungual hyperkeratosis, without drainage. MYCOSIS SCALE: total with debris; multiple digits. INTERDIGITAL MACERATION: Clean and dry. SKIN PATHOLOGY: texture, turgor, hair growth, within normal limits. Ankle / Foot: FOOT: long-standing HAV/bunion deformity bilateral; with multiple semi-rigid digital contractures. RANGE OF MOTION: Functional passive range of motion without pain. Radiology: Assessment/Plan 1. Symptomatic onychodystrophy/mycosis of multiple digits. Plan: Clinical Notes: conservative and palliative care measures are preferred, understood and againindicated. Procedure: Toenail Debridement: Aseptic technique: power/manual instrumentation: onychodebridement length and thickness, curretage of offending crypotic margins, rowan-ungual debris, providing effective pressure and symptom relief, reducing shoe and digital trauma. This note was created with the assistance of a speech recognition program. While intending to generate a timely document that accurately reflects the content of the visit, no guarantee can be provided that every grammatical or spelling mistake has been or will be identified or corrected. Thank you for your understanding. Antione Dyer DPM documented in this [facility]04-01-2025 Instructions* Patient Instructions* Antione Dyer DPM - 06/23/2024 2:30 PM EDT As noted documented in this encounterSaint Mary's Health [id number] History of Present illness Narrative* Ruben Valentine APRN-REFRIGERATOR ASSEMBLER - 04/16/2024 9:00 AM EST Subjective SUBJECTIVE: Patient ID: La Nena Wang is a 44 y.o. male who presents for a Medicare Annual Wellness exam. Presents for annual Medicare Wellness. He is accompanied by his care provider, kerry Villasenor. Resided in local [facility]. Intellectual and cognitive disability. All care, transportation, meal preparation, and medication administration completed per staff. He is also monitored by psychiatry, neurology, and urology. Annual Exam Pertinent negatives include no chest pain, chills, coughing, fatigue, fever or headaches. The following portions of the patient's history were reviewed and updated as appropriate: allergies, current medications, past family history, past medical history, past social history, past surgicalhistory and problem list. Past Surgical History: Procedure Laterality Date SHUNT INSERTION Past Medical History: Diagnosis Date ADHD (attention deficit hyperactivity disorder) Cerebral palsy ([facility]) Diabetes mellitus ([facility]) Hydrocephalus ([facility]) Hypertension Immunization History Administered Date(s) Administered COVID-19, mRNA, LNP-S, PF, 100mcg/0.5mL Dose 04/04/2020, 05/02/2020 Influenza, Injectable, quadrivalent (PF) 12/04/2014, 12/17/2015, 01/02/2017, 01/01/2018, 01/30/2019, 01/27/2020, 01/03/2023 AWV FLOWSHEET : Lifestyle Assessment Do you smoke or use smokeless tobacco?: No If you smoke or use smokeless tobacco, are you ready to quit?: NA Are you exposed to secondhand smoke?: No On average, how many drinks of alcohol do you consume in a week?: None Do you exercise for 30 or more minutes on average at least 3 days a week?: Sometimes Do you have any tooth, denture, or oral problems?: (!) Yes Do you snore or has anyone told you that you snore?: No Do you try to eat a balanced diet?: Yes Do you have difficulty performing any of these activities? (check all that apply): None Do you have difficulty performing any of these activities? (check all that apply): (!) Laundry, Housekeeping, Preparing a meal, Shopping, Using transportation, Paying bills, Managing finances Discussed dental visits every 6 months and per dental provider recommendations. Patient has dentist. Resided in local [facility]. Intellectual and cognitive disability. All care, transportation, meal preparation, and medication administration completed per staff. Fall Risk Depression Screening Little interest or pleasure in doing things: Not at all Feeling down, depressed, or hopeless: Not at all Trouble falling or staying asleep, or sleeping too much: Not at all Feeling tired or having little energy: Not at all Poor appetite or overeating: Not at all Feeling bad about yourself - or that you are a failure or have let yourself or your family down: Not at all Trouble concentrating on things, such as reading the newspaper or watching television: Not at all Moving or speaking so slowly that other people could have noticed. Or the opposite - being so fidgety or restless that you have been moving around a lot more than usual: Not at all Thoughts that you would be better off , or of hurting yourself in some way: Not at all Safety Assessment Do you have throw rugs on the floor?: No Do you feel safe at your home?: Yes Do you feel unsteady when walking?: No Are you having difficulty with driving?: N/A Do you have trouble seeing?: (!) Yes What assistive device do you use? (check all that apply): None Recommendation for yearly eye exams or as directed by eye provider. Hearing Assessment Do you strain or struggle to hear/understand conversations?: No Do you have trouble hearing the television or radio when others do not?: No Does your family ever voice concerns about your hearing?: No Do you wear hearing aid/s?: No Personal Health During the past 4 weeks, how would you rate your overall health?: Very Good Do you understand how to take all of your medications?: (!) No How confident are you that you can control and manage most of your health problems?: (!) Not very confident In the past 12 months, how many times have you been hospitalized?: None Resided in local [facility]. Intellectual and cognitive disability. All care, transportation, meal preparation, and medication administration completed per staff. End of Life Planning Do you have a living will?: (!) No Do you have a durable power of environmental attorney?: (!) No Father is his legal guardian Patient educated today about benefits of having a Living Will and DPOA. Information packet providedtoday. Cognitive Screening Do you have trouble remembering or recalling facts or events?: (!) Yes Do family members or caregivers report that you have difficulty remembering things?: (!) Yes Clock Drawing Test: Not Assessed Cognitive and intellectual delay REVIEW OF SYSTEMS: Review of Systems Reason unable to perform ROS: Caregiver completes ROS due to patient intellectual and cognative status. Constitutional: Negative for chills, fatigue and fever. HENT: Negative for hearing loss and trouble swallowing. Eyes: Negative for pain and visual disturbance. Respiratory: Negative for cough, chest tightness and shortness of breath. Cardiovascular: Negative for chest pain, palpitations and leg swelling. Gastrointestinal: Negative for blood in stool. Endocrine: Negative for polydipsia, polyphagia and polyuria. Genitourinary: Negative for difficulty urinating, dysuria, flank pain, hematuria, scrotal swelling and testicular pain. Musculoskeletal: Negative. Skin: Negative. Allergic/Immunologic: Negative. Neurological: Negative for seizures, syncope and headaches. Hematological: Does not bruise/bleed easily. Psychiatric/Behavioral: Negative. Objective PHYSICAL EXAMINATION: Vitals: 04/16/24 0913 BP: 90/70 BP Site: Left Arm BP Postition: Sitting Pulse: (!) 126 Resp: 18 Temp: 36.6 C (97.9 F) TempSrc: Oral SpO2: 96% Weight: 94.3 kg (207 lb 12.8 oz) Height: 190.5 cm (6' 3 ) Patient noted to have elevated BMI and the following intervention(s) were applied: encouragement toexercise. Relevant Labs: Lab Results Component Value Date HGBA1C 5.7 (H) 10/10/2023 No results found for: MICROALBUR , URINECREAT , ALBCREATRA Lab Results Component Value Date TSH 1.13 10/10/2023 TSH 1.27 09/27/2022 T4 0.82 10/10/2023 Lab Results Component Value Date VITD25 63.3 10/10/2023 VITD25 26.9 (L) 09/27/2022 Lab Results Component Value Date WBC 5.9 10/10/2023 RBCCOUNT 5.11 10/10/2023 HGB 15.4 10/10/2023 HCT 44.4 10/10/2023 MCV 87 10/10/2023 MCH 30.0 10/10/2023 MCHC 34.6 10/10/2023 RDW 12.8 10/10/2023 PLT 179 10/10/2023 MPV 8.2 10/10/2023 Lab Results Component Value Date PSA 0.68 02/14/2024 Lab Results Component Value Date SODIUM 139 10/10/2023 K 4.3 10/10/2023 CL 101 10/10/2023 CO2 31 10/10/2023 ANIONGAP 7 10/10/2023 BUN 16 10/10/2023 GLU 101 (H) 10/10/2023 CALCIUM 9.9 10/10/2023 TOTALPROTEI 7.5 10/10/2023 ALBUMIN 4.8 10/10/2023 ALKPHOS 77 10/10/2023 AST 19 10/10/2023 ALT 15 10/10/2023 Imaging: CT brain without contrast Result Date: 03/19/2024 Narrative: CT HEAD WO IV CONTRAST INDICATION: INterval changes, memory loss COMPARISON: Head CT November 28, 2023 TECHNIQUE: Axial images were obtained through the brain without the use of intravenous contrast. Coronal and Sagittal reformations were generated. FINDINGS: Left parietal dianna hole is again demonstrated. A ventriculostomy shunt extends through the dianna hole to terminate in the left lateral ventricle posterior body. CEREBRUM: Mild patchy hypodensities in the periventricular cerebral white matter of both hemispheres appear relatively stable. 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 There is a apparent shunt catheter in the fluid entering through a left occipital dianna hole. BRAINSTEM: Normal. VENTRICLES AND EXTRA-AXIAL SPACES: The ventricles are stable in size and morphology. No developing hydrocephalus. SKULL/SCALP: [place] holes as described. PARANASAL SINUSES AND MASTOID AIR CELLS: Normal. 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 No apparent change in the ventricular size to suggest shunt malfunction. Dictated on: 03/19/2024 8:35 AM This report has been electronically signed and approved by the interpreting Radiologist. Physical Exam Vitals and nursing note reviewed. Constitutional: General: He is not in acute distress. Appearance: He is well-developed. HENT: Head: Normocephalic and atraumatic. Right Ear: Tympanic membrane and external ear normal. Left Ear: Tympanic membrane and external ear normal. Nose: Nose normal. Mouth/Throat: Mouth: Mucous membranes are moist. Pharynx: No oropharyngeal exudate. Eyes: General: No scleral icterus. Right eye: No discharge. Left eye: No discharge. Conjunctiva/sclera: Conjunctivae normal. Pupils: Pupils are equal, round, and reactive to light. Neck: Vascular: No JVD. Cardiovascular: Rate and Rhythm: Normal rate and regular rhythm. Heart sounds: Normal heart sounds. No murmur heard. No friction rub. No gallop. Pulmonary: Effort: Pulmonary effort is normal. No respiratory distress. Breath sounds: Normal breath sounds. Chest: Chest wall: No tenderness. Abdominal: General: Bowel sounds are normal. There is no distension. Palpations: Abdomen is soft. There is no mass. Tenderness: There is no abdominal tenderness. There is no guarding or rebound. Hernia: No hernia is present. Musculoskeletal: General: No tenderness. Normal range of motion. Cervical back: Normal range of motion and neck supple. Lymphadenopathy: Cervical: No cervical adenopathy. Skin: General: Skin is warm and dry. Capillary Refill: Capillary refill takes less than 2 seconds. Findings: No rash. Neurological: Mental Status: He is alert and oriented to person, place, and time. Deep Tendon Reflexes: Reflexes are normal and symmetric. Psychiatric: Mood and Affect: Mood normal. Behavior: Behavior normal. Thought Content: Thought content normal. Judgment: Judgment normal. Assessment/Plan ASSESSMENT/PLAN La Nena was seen today for annual exam. Diagnoses and all orders for this visit: Medicare annual wellness visit, subsequent Mood disorder ([facility]) Other hydrocephalus ([facility]) Other cerebral palsy ([facility]) Special screening for malignant neoplasm of colon - Cologuard Non-[facility] Colonoscopy screening discussed today. Risk and benefits of procedure explained. Care provider feels Cologuard is the best option at this time for him due to cognitive delay and behaviors. Hydrocephalus- monitored by [facility]y. Has shunt. Cerebral palsy- resides in local residential where all ADLS are assisted, medication administration and meal prep is completed per staff Mood disorder- managed by psychiatry. Does have outbursts but is easily redirected by staff. Body mass index is 25.97 kg/m . Patient noted to have elevated BMI and the following intervention(s) were applied: Discussed current weight today. Consider healthy food choices, portion control. Avoid sugary beverages and high concentrated sweets. Routine exercise regimen encouraged. Return in about 6 months (around 10/14/2024). There are no Patient Instructions on file for this visit. SERGIO Leon 04/16/24 0946 documented in this encounterA[facility] History of Present illness Narrative* Jonathan Keller MD - 04/08/2024 12:15 PM EST Images from the original note were not included. [address] [place] [address] [facility] [id number] Patient: La Nena Wang Date of : 1980 Encounter Date: 04/08/2024 History of Present Illness: Chief Compla The patient is a 44 y.o. male, an established patient, and is here for enuresis nocturnal.. Daytimedoing well. Full discussion as below.. Summary of old records: Urinalysis today: No results for input(s): EXTPOCURCO , EXTPOCURCH , EXTPOCAPP , EXTPOCURBS , EXTPOCURBIL , EXTPOCUKET , EXTPOCUSPG , EXTPOCUHGB , EXTPOCUPRO , EXTPOCUURO , EXTPOCULEU , EXTPOCUNIT , EXTPOCUWBC , EXTPOCUBLD , EXTPOCURBC , EXTPOCUCRY , EXTPOCUBAC , EXTPOCUTREP , EXTPOCUPH , EXTPOCUL EE in the last 72 hours. Last BUN and creatinine: Lab Results Component Value Date BUN 16 10/10/2023 Lab Results Component Value Date CREATININE 1.32 (H) 10/10/2023 Last PSA: Lab Results Component Value Date PSA 0.68 02/14/2024 No results found for: PROSTATICSP Past Medical, Family, and Social History Update: The following portions of the patient's history were reviewed and updated as appropriate: allergies, current medications, past family history, past medical history, past social history, past surgicalhistory and problem list. Past Medical History: Diagnosis Date ADHD (attention deficit hyperactivity disorder) Cerebral palsy ([facility]) Diabetes mellitus ([facility]) Hydrocephalus ([facility]) Hypertension Past Surgical History: Procedure Laterality Date SHUNT INSERTION Family History Family history unknown: Yes Current Outpatient Medications Medication Sig Dispense Refill acetaminophen (TYLENOL) 325 mg tablet Take 2 tablets (650 mg total) by mouth. amoxicillin (AMOXIL) 500 mg capsule Only when he is having a dental procedure. cholecalciferol, vitamin D3, 2,000 units capsule take 1 capsule by mouth every morning 31 capsule 11 clonazePAM (KlonoPIN) 0.5 mg tablet cloNIDine (CATAPRES) 0.1 mg tablet clozapine (CLOZARIL) 50 MG tablet 1 tablet Orally Once a day dextroamphetamine-amphetamine (AdderalL) 20 mg tablet Take 1 tablet (20 mg total) by mouth. dextroamphetamine-amphetamine (AdderalL) 5 mg tablet 5 tablets (25 mg total). dextromethorphan-quiNIDine (NUEDEXTA) 20-10 mg capsule Nuedexta LINZESS 290 mcg capsule (MUST BE LEFT IN ORIGINAL PACKAGE) TAKE 1 CAPSULE BY MOUTH ONCE EVERY DAY 30 capsule 11 lisinopriL (PRINIVIL,ZESTRIL) 5 mg tablet TAKE 1 TABLET BY MOUTH ONCE EVERY DAY 31 tablet 11 LORazepam (ATIVAN) 2 mg tablet Take 1 tablet (2 mg total) by mouth See Admin Instructions. Administer 1 tablet one hour before dental procedure. May administer additional tablet one hour later if noteffective. 2 tablet 0 LORazepam (ATIVAN) 2 mg tablet Take 1 tablet (2 mg total) by mouth See Admin Instructions. 1 tabletone hour before dental procedure. May administer additional tablet one hour later if not effective.2 tablet 0 magnesium hydroxide 400 mg/5 mL suspension TAKE 45ML (3 TABLESPOONS) BY MOUTH ON DAY 2 NEEDED IFNOT BOWEL MOVEMENT BY 8PM 473 mL 11 memantine (NAMENDA) 5 mg tablet 1 tablet Orally Once a day OLANZapine (ZyPREXA) 10 mg tablet OLANZapine (ZyPREXA) 5 mg tablet Take 1 tablet (5 mg total) by mouth. polyethylene glycol (GLYCOLAX) 17 gram packet MIX 1 PACKET IN 4-8 OZ OF WATER/JUICE AND TAKE BY MOUTH ONCE EVERY DAY 30 packet 11 SENNA 8.6 mg tablet Take 1 tablet (8.6 mg total) by mouth in the morning and 1 tablet (8.6 mg total) before bedtime. Time at 8am and 8pm. 60 tablet 11 tamsulosin (FLOMAX) 0.4 mg capsule Take 1 capsule (0.4 mg total) by mouth nightly. At 8pm 30 capsule 11 temazepam (RESTORIL) 30 mg capsule venlafaxine XR (EFFEXOR XR) 75 mg 24 hr capsule OLANZapine (ZyPREXA) 2.5 mg tablet (Patient not taking: Reported on 04/08/2024) OLANZapine (ZyPREXA) 7.5 mg tablet OLANZapine (Patient not taking: Reported on 01/13/2024) trospium (SANCTURA) 20 mg tablet Take 1 tablet (20 mg total) by mouth nightly. 30 tablet 3 No current facility-administered medications for this visit. (All medications reviewed and updated by provider since last office visit or hospitalization) Allergies: Patient has no known allergies. Tobacco History: Social History Tobacco Use Smoking Status Never Smokeless Tobacco Never (If patient a smoker, smoking cessation counseling offered) Social History: Social History Substance and Sexual Activity Alcohol Use Never Review of Systems: General: Negative for chills and fever. Cardiovascular: Negative for chest pain and shortness of breath. Gastrointestinal: Positive for constipation(SENNA) -per HPI Physical Exam: BP 125/89 Pulse 85 Ht 190.5 cm (6' 3 ) Wt 92.5 kg (204 lb) BMI 25.50 kg/m Nontoxic no apparent distress. Respirations nonlabored. Skin is dry. Awake alert oriented x3. Assessment and Plan: La Nena was seen today for follow-up. Diagnoses and all orders for this visit: Enuresis Other orders - trospium (SANCTURA) 20 mg tablet; Take 1 tablet (20 mg total) by mouth nightly. Problem List High Enuresis - Primary Overview ==== 04/08/2024 ==== enuresis continues. Culture fine PSA fine ultrasound fine. We did discuss cystoscopy [place] bladder solution. Mac anesthesia. There some reluctance [...] cystoscopy [place] bladder solution. Probable mac anesthesia. Follow-up: Return clinic midlevel provider 2.5 months Jonathan Keller MD Prescription drug management performed during today's office visit This note was created with the assistance of a speech recognition program. While intending to generate a timely document that accurately reflects the content of the visit, no guarantee can be provided that every grammatical or spelling mistake has been or will be identified or corrected. Thank you for your understanding. documented in this encounterKindred HealthcareHotPads De[facility] [id number] Miscellaneous Notes* Telephone Encounter - Walter Zafar CMA - 03/30/2024 9:20 AM EST Need some advice about JR. In the last 2 wks, he has had a very little amount of stool come out of his body. We are giving milk of mag every 2 days and only getting bird egg size at the most. Usuallysmaller. He says he can't go. What should we do at this point? Should we make an appointment? * Telephone Encounter - SERGIO Leon - 03/30/2024 9:20 AM EST I spoke with Jacklyn directly. documented in this encounterAdena [facility]01-06-[facility]25 Telephone encounter Note* Telephone Encounter - Walter Zafar CMA - 03/30/2024 9:20 AM EST Need some advice about JR. In the last 2 wks, he has had a very little amount of stool come out of his body. We are giving milk of mag every 2 days and only getting bird egg size at the most. Usuallysmaller. He says he can't go. What should we do at this point? Should we make an appointment? [facility]01-[facility] Telephone encounter Note* Telephone Encounter - SERGIO Leon - 03/30/2024 9:20 AM EST I spoke with Jacklyn directly. [facility]12-23-[facility] History of Present illness Narrative* Alicja Morrow NP - 03/16/2024 9:20 AM EST Images from the original note were not included. Chief Complaint Patient presents with Hydrocephalus Subjective La Nena is here today with his caregiver. She states he has been doing okay. He has had some fluctuations in his emotions the last few days between angry and sad. He has been tired the last few days. He denies any head pains. His memory has declined a little bit but not much. Past Medical History: Diagnosis Date ADHD (CMS/HCC) Chronic constipation Dermatophytosis of nail History of medical problems rage RXN C Hydrocephalus (CMS/HCC) Memory loss Mental disability (CMS/HCC) mild, retardation Mood disorder (CMS/HCC) Obstructive hydrocephalus (CMS/HCC) PBA (pseudobulbar affect) Past Surgical History: Procedure Laterality Date VENTRICULOPERITONEAL SHUNT Family History Problem Relation Name Age of Onset Cancer Mother Social History Tobacco Use Smoking status: Never Smokeless tobacco: Never Substance Use Topics Alcohol use: Never Comment: Caffeine intake: none Allergies: Patient has no known allergies. General: No fever or chills HEENT: No nasal congestion or runny nose Pulmonary: No shortness of breath or cough Cardiovascular: No chest pain or palpitations GI: No nausea or vomiting : No dysuria or hematuria Musculoskeletal: No new aches or pains or muscle weakness Infectious: no recurrent fevers or infections Dermatologic: No rashes or skin lesions Neurologic: No new headaches or dizziness Vitals: 03/16/24 0924 BP: (!) 126/93 Pulse: 101 Body mass index is 25.08 kg/m . weight: 206 lb Neurologic exam: General: Normal body habitus, cooperative, pleasant Mental status: Awake, alert to person, place, disoriented to time. Recent and remote memory are impaired Attention and concentration are decreased, difficulty following directions at times Fund of knowledge DD HEENT: NC/AT Cranial nerves: CN II: Visual mims full to confrontation. No loss of vision CN III, IV, : pupils equal round and reactive to light. Extraocular movements appear intact righteye, left eye not crossing midline, No ptosis present. CN V: Facial sensation is normal. CN VII: Full and symmetric facial movement. CN VIII: Hearing is normal CN IX and X: Palate elevates symmetrically. CN XI: Shoulder shrug is normal bilaterally. CN XII: Tongue is midline without atrophy or fasciculation. Speech: Short sentences, no aphasia or dysarthria Pronator drift: Negative bilateral upper extremity Coordination: Finger to nose dysmetria, decreased rapid alternating movements Sensory: Sensation is intact to light and vibratory touch throughout four extremities. Motor: LUE 5/5 RUE 5/5 LLE 5/5 RLE 5/5 Tone: Physiologic, no tremor, bradykinesia or rigidity DTR: Bilateral Biceps x Bilateral BR x Bilateral Patellar x No spasticity Gait: ataxic Romberg's x Review and summary of old records: Assessment/Plan There are no diagnoses linked to this encounter. 44 year old male with history of hydrocephalus with MRDD requiring a [employer] Shunt. He has some memory loss and is on Namenda. Staff has noticed that it does continue to decline, although, not significantly. There is question if this is selective. He does remembers prior conversation we have had. He hasPBA and his mood has been fluctuating the past few days. He has been more tired also the last few days. I discussed with caregiver if anything had changed. Patient has not talked to his father in thepast few months. He father did call him on every Saturday and now his father is in rehab and has not and this is likely upsetting the patient. He is on the Nudexta and this works well for him. No major outbursts. He has ADHD treated with Adderall but prescribed by his psych provider. He sees his psych provider monthly. He was having some spacey spells due to med changes that resolved. It was feltthat this was due to olanzepine being increased too fast. We could order a routine EEG pending course. He is back to his occasional staring spells that are chronic for him. . He is seeing urology for his incontinence that has increased significantly in the night time. Therehas been no cause found as of yet. Due to this and the memory concerns I did order a CT head completed 11/2023 revealing post procedural (and possibly developmental) findings primarily of the posterior fossa, no acute appearing abnormalities although comparison studies were not available, this was done in [place]. Minimal rightward midline shift, approximately 2 mm, no herniation of tissues. We will repeat image this now as it has been several months to look for any interval changes. 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 Continuity left occipital approach drain withthe tip within the left posterior fossa inferior of the tentorium cerebelli as well as a left parietal approach drain with tip located near posterior aspect of the roots of the 3rd ventricle superiorto pineal gland, mild lateral ventricular dilation primarily of the atria. He continues living in a residential. He attends workshop several days/week to keep active and dayhab the other days. He has a minimal tremor that is stable and we will continue to monitor over time. . At one point he told psych that his head hurt. We did order a CT to evaluate shunt. This was completed 07/2022 and there was some mild ventricular dilatation and asymmetric atrophy on the left cerebellar hemishphere compared to the right. He again denies any head pain and head CT at that time was noncerning. . . . Plan CT head to assess for any interval changes at [place] for comparison Continue with urology consult for increased incontinence Monitor memory for continued worsening Is spells ( spacey ) comes back then we will order routine EEG monitor for any headaches continue the Namenda for memory loss continue Nuedexta for PBA we do not Rx the Adderall, this is by his psych provider brain exercises physical exercises monitor tremor call for any worsening. continue with dayhab and workshop This was discussed with the patient, all questions were answered and they agreed with the treatmentplan. The patient is to call with any worsening of the condition or new symptoms. Return to clinic: 3 months documented in this encounterSaint Mary's Health [id number] History of Present illness Narrative* Jonathan Keller MD - 02/03/2024 2:00 PM EST Images from the original note were not included. [address] [place] [address] [facility] [id number] Patient: La Nena Wang Date of : 1980 Encounter Date: 02/03/2024 History of Present Illness: The patient is a 43 y.o. male, a new patient, and is here for history of enuresis. Nocturnal reallysome daytime. Larger volume. A few months. Patient is already on tamsulosin.. Urinalysis today: No results for input(s): EXTPOCURCO , EXTPOCURCH , EXTPOCAPP , EXTPOCURBS , EXTPOCURBIL , EXTPOCUKET , EXTPOCUSPG , EXTPOCUHGB , EXTPOCUPRO , EXTPOCUURO , EXTPOCULEU , EXTPOCUNIT , EXTPOCUWBC , EXTPOCUBLD , EXTPOCURBC , EXTPOCUCRY , EXTPOCUBAC , EXTPOCUTREP , EXTPOCUPH , EXTPOCUL EE in the last 72 hours. Last BUN and creatinine: Lab Results Component Value Date BUN 16 10/10/2023 Lab Results Component Value Date CREATININE 1.32 (H) 10/10/2023 Last PSA: No results found for: PSA No results found for: PROSTATICSP Past Medical, Family, and Social History Update: The following portions of the patient's history were reviewed and updated as appropriate: allergies, current medications, past family history, past medical history, past social history, past surgicalhistory and problem list. Past Medical History: Diagnosis Date ADHD (attention deficit hyperactivity disorder) Cerebral palsy ([facility]) Diabetes mellitus ([facility]) Hydrocephalus ([facility]) Hypertension Past Surgical History: Procedure Laterality Date SHUNT INSERTION Family History Family history unknown: Yes Current Outpatient Medications Medication Sig Dispense Refill acetaminophen (TYLENOL) 325 mg tablet Take 2 tablets (650 mg total) by mouth. amoxicillin (AMOXIL) 500 mg capsule Only when he is having a dental procedure. cholecalciferol, vitamin D3, 2,000 units capsule take 1 capsule by mouth every morning 31 capsule 11 clonazePAM (KlonoPIN) 0.5 mg tablet cloNIDine (CATAPRES) 0.1 mg tablet clozapine (CLOZARIL) 50 MG tablet 1 tablet Orally Once a day dextroamphetamine-amphetamine (AdderalL) 20 mg tablet Take 1 tablet (20 mg total) by mouth. dextroamphetamine-amphetamine (AdderalL) 5 mg tablet 5 tablets (25 mg total). dextromethorphan-quiNIDine (NUEDEXTA) 20-10 mg capsule Nuedexta linaCLOtide (LINZESS) 290 mcg capsule Linzess LINZESS 290 mcg capsule (MUST BE LEFT IN ORIGINAL PACKAGE) TAKE 1 CAPSULE BY MOUTH ONCE EVERY DAY 30 capsule 11 lisinopriL (PRINIVIL,ZESTRIL) 5 mg tablet TAKE 1 TABLET BY MOUTH ONCE EVERY DAY 30 tablet 11 LORazepam (ATIVAN) 2 mg tablet Take 1 tablet (2 mg total) by mouth See Admin Instructions. Administer 1 tablet one hour before dental procedure. May administer additional tablet one hour later if noteffective. 2 tablet 0 LORazepam (ATIVAN) 2 mg tablet Take 1 tablet (2 mg total) by mouth See Admin Instructions. 1 tabletone hour before dental procedure. May administer additional tablet one hour later if not effective.2 tablet 0 magnesium hydroxide (MILK OF MAGNESIA) 400 mg/5 mL suspension Take 45 mL by mouth See Admin Instructions. (3 tablespoons) oral on day two if no BM by 8PM 473 mL 6 memantine (NAMENDA) 5 mg tablet 1 tablet Orally Once a day OLANZapine (ZyPREXA) 10 mg tablet OLANZapine (ZyPREXA) 2.5 mg tablet OLANZapine (ZyPREXA) 5 mg tablet Take 1 tablet (5 mg total) by mouth. polyethylene glycol (GLYCOLAX) 17 gram packet MIX 1 PACKET IN 4-8 OZ OF WATER/JUICE AND TAKE BY MOUTH ONCE EVERY DAY 30 packet 11 SENNA 8.6 mg tablet TAKE 1 TABLET BY MOUTH EVERY NIGHT AT 8PM FOR CONSTIPATION 31 tablet 11 tamsulosin (FLOMAX) 0.4 mg capsule Take 1 capsule (0.4 mg total) by mouth nightly. At 8pm 30 capsule 11 temazepam (RESTORIL) 30 mg capsule venlafaxine XR (EFFEXOR XR) 75 mg 24 hr capsule OLANZapine (ZyPREXA) 7.5 mg tablet OLANZapine (Patient not taking: Reported on 02/03/2024) No current facility-administered medications for this visit. (All medications reviewed and updated by provider since last office visit or hospitalization) Allergies: Patient has no known allergies. Tobacco History: Social History Tobacco Use Smoking Status Never Smokeless Tobacco Never (If patient a smoker, smoking cessation counseling offered) Social History: Social History Substance and Sexual Activity Alcohol Use Never Review of Systems: Constitutional: Normal activity and energy. Patient denies change in appetite, weight loss or gain,malaise (depression), chills, fever, or diaphoresis (sweating). Eyes: Vision Changes Ears, Nose, Nose and Throat: Patient denies tinnitus (ringing in ears), hearing loss, epistaxis (nose bleed), hoarseness, and dysphagia (hard to swallow). Respiratory: Patient denies dyspnea (shortness of breath), cough, hemotypsis (blood in sputum), andwheezing. Cardiovascular: Patient denies chest pain, palpitations, and shortness of breath. Gastrointestinal: Diarrhea (chronic) Musculoskeletal: Patient denies joint pain/stiffness, weakness, swelling, and backache. Neurologic: Patient denies weakness, dizziness, loss of consciousness, transient ischemic symptoms,and seizures. Integument: Patient denies rashes and non-healing lesions. Psychiatric: Increased nervousness Endocrine: Patient denies thyroid trouble, heat or cold intolerance, diabetes, excessive thirst, hunger, and excessive urination. Blood Disorders: Patient denies anemia, easy bruising, and easy bleeding. Physical Exam: BP 134/86 Pulse 94 Ht 190.5 cm (6' 3 ) Wt 92.5 kg (204 lb) BMI 25.50 kg/m General Alert., Cooperative. Not in acute distress. Non-toxic. Orientation - Oriented X3. Head and Neck Normocephalic, atraumatic with no lesions. No abnormal movements. Trachea - midline. Integumentary Normal coloration of skin. Skin Moisture - normal skin moisture. Chest and Lung Exam Quiet, even and easy respiratory effort with no use of accessory muscles. Neurologic NON-focal Assessment and Plan: La Nena was seen today for nocturnal enuresis. Diagnoses and all orders for this visit: Enuresis Nocturnal enuresis - Ambulatory referral to Urology - Ultrasound retroperitoneal complete; Future - Urine Culture; Future Urinary incontinence, unspecified type - Ambulatory referral to Urology - Ultrasound retroperitoneal complete; Future - Urine Culture; Future - Prostatic specific antigen, diagnostic; Future Problem List High Enuresis - Primary Overview ==== 02/03/2024 ==== last 3 months. Some enuresis. Primarily nocturnal. By report has checked cultures. Did have a UTI potentially. Plan: Renal bladder ultrasound--check postvoid residual at that time Urine for culture. PSA. Returnclinic midlevel provider. Consideration for cystoscopy University bladder solution. Probable mac anesthesia. Follow-up: Renal bladder ultrasound. Urine for culture today. PSA. Return clinic after. Jonathan Keller MD This note was created with the assistance of a speech recognition program. While intending to generate a timely document that accurately reflects the content of the visit, no guarantee can be provided that every grammatical or spelling mistake has been or will be identified or corrected. Thank you for your understanding. documented in this encounterKindred HealthcareHotPads Deckerville Community [id number] History of Present illness Narrative* Antione Dyer DPM - 01/27/2024 9:15 AM EST Images from the original note were not included. Subjective Patient ID: La Nena Wang is a 43 y.o. male who presents for No chief complaint on file.. HPI HPI Onychomycosis/Toenail Fungus: Symptomatic toenail deformity. Location: All digits are problematic/symptomatic. Duration: Insidious, chronic stable deformity multiple years duration. Severity of symptoms: mild-moderate, impacting his ability to wear most shoes comfortably. Onset: gradual, without injury or trauma. Status: Problematic/symptomatic over the past month or so. Context: hard to trim , hard to reach; self-care is difficult and not practical; exposing patient to considerable risk. Care staff unable to provide care . Characteristics: elongated, discolored, thickened, pain , ingrowing, pressure; without bleeding or drainage. Relieved by: palliative care measures provide effective transient symptom relief. Previous Treatment: palliative care as noted. Risk factors: medical comorbidities. Polypharmacy. Mobility, flexibility and dexterity restraints. digital deformity. Forefoot deformity. 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 toenail deformity. Shoe and/or digital trauma and related complications. Aggravated by: shoe gear , pressure, walking, snagging on clothing etc. . Medications Current Outpatient Medications: acetaminophen (Tylenol) 325 MG tablet, Take 325 mg by mouth every 4 (four) hours if needed for mildpain, Disp: , Rfl: amoxicillin (Amoxil) 500 MG capsule, Take by mouth, Disp: , Rfl: amphetamine-dextroamphetamine XR (Adderall XR) 25 MG 24 hr capsule, 25 mg, Disp: , Rfl: cholecalciferol (Vitamin D-3) 50 MCG (1999 UT) capsule, Take 1 capsule by mouth in the morning., Disp: , Rfl: clonazePAM (KlonoPIN) 0.5 MG disintegrating tablet, Take 0.5 mg by mouth 1 (one) time each day at the same time., Disp: , Rfl: cloNIDine (Catapres) 0.1 MG tablet, 0.1 mg 1 (one) time each day at the same time., Disp: , Rfl: Dextromethorphan-quiNIDine (Nuedexta) 20-10 MG capsule, Take 1 capsule by mouth in the morning and 1 capsule before bedtime., Disp: 62 capsule, Rfl: 3 linaCLOtide (Linzess) 290 MCG capsule, 290 mcg 1 (one) time each day at the same time., Disp: , Rfl: lisinopril 5 MG tablet, Take 5 mg by mouth Daily, Disp: , Rfl: LORazepam (Ativan) 2 MG tablet, Take 2 mg by mouth See administration instructions, Disp: , Rfl: magnesium hydroxide (Milk of Magnesia) 400 MG/5ML suspension, every 6 (six) hours., Disp: , Rfl: memantine (Namenda) 10 MG tablet, Take 1 tablet (10 mg) by mouth in the morning and 1 tablet (10 mg) before bedtime., Disp: 62 tablet, Rfl: 3 OLANZapine (ZyPREXA) 5 MG tablet, Take 5 mg by mouth 1 (one) time each day at the same time, Disp: , Rfl: Polyethylene Glycol powder, Polyethylene Glycol -, Disp: , Rfl: senna-docusate (Rowan-Colace) 8.6-50 MG tablet, 1 tablet 1 (one) time each day at the same time., Disp: , Rfl: tamsulosin (Flomax) 0.4 MG 24 hr capsule, Take 0.4 mg by mouth at bedtime, Disp: , Rfl: temazepam (Restoril) 30 MG capsule, Take 30 mg by mouth 1 (one) time each day at the same time., Disp: , Rfl: venlafaxine (Effexor) 75 MG tablet, Take 75 mg by mouth every 12 (twelve) hours, Disp: , Rfl: amantadine (Symmetrel) 100 MG capsule, 100 mg every 12 (twelve) hours. (Patient not taking: Reported on 01/27/2024), Disp: , Rfl: cloZAPine (Clozaril) 50 MG tablet, Take 50 mg by mouth in the morning. (Patient not taking: Reported on 01/27/2024), Disp: , Rfl: dextroamphetamine ER (Dexedrine Spansule) 10 MG 24 hr capsule, 10 mg. (Patient not taking: Reportedon 01/27/2024), Disp: , Rfl: memantine (Namenda) 5 MG tablet, Take 5 mg by mouth 1 (one) time each day at the same time. (Patient not taking: Reported on 01/27/2024), Disp: , Rfl: mupirocin (Bactroban) 2 % ointment, every 8 (eight) hours. (Patient not taking: Reported on 01/27/2024), Disp: , Rfl: naltrexone (Depade) 50 MG tablet, Take 50 mg by mouth in the morning. (Patient not taking: Reportedon 01/27/2024), Disp: , Rfl: temazepam (Restoril) 15 MG capsule, Take 30 mg by mouth 1 (one) time each day at the same time (Patient not taking: Reported on 01/27/2024), Disp: , Rfl: Allergies Patient has no known allergies. Past Surgical History Past Surgical History: Procedure Laterality Date VENTRICULOPERITONEAL SHUNT Family History Family History Problem Relation Name Age of Onset Cancer Mother Objective General Examination: GENERAL EXAMINATION: Alert and oriented. Pleasant cooperative disposition. Accompanied by his caregive. Vascular: DORSALIS PEDIS PULSE: bilaterally, 2/4. POSTERIOR TIBIAL PULSE: bilaterally, 2/4. TEMPERATURE GRADIENT: warm to warm. EDEMA: Unremarkable for ankle or pedal edema. CAPILLARY FILLING TIME(sec): capillary fill intact bilateral digits less than 3 secs. Neurologic: MUSCLE POWER: No focal deficits. SHARP SENSATION: Tactile and soft touch sensation intact. Dermatologic: SKIN FINDINGS: Intact, skin turgor is good. HYPERTROPHIC LESION: No forefoot or digital keratotic pressure lesions are noted. NAIL PATHOLOGY: All digits: none are spared: varying degrees of toenail dystrophy, elongation, hypertrophy, discoloration, thickening, clubbing, crumbly texture, friability, marginal cryptosis and tenderness, periungual hyperkeratosis, without drainage. MYCOSIS SCALE: total with debris; multiple digits. INTERDIGITAL MACERATION: Clean and dry. SKIN PATHOLOGY: texture, turgor, hair growth, within normal limits. Ankle / Foot: FOOT: long-standing HAV/bunion deformity bilateral; with multiple semi-rigid digital contractures. RANGE OF MOTION: Functional passive range of motion without pain. Radiology: Assessment/Plan 1. Symptomatic onychodystrophy/mycosis of multiple digits. Plan: Clinical Notes: conservative and palliative care measures are preferred, understood and againindicated. Procedure: Toenail Debridement: Aseptic technique: power/manual instrumentation: onychodebridement length and thickness, curretage of offending crypotic margins, rowan-ungual debris, providing effective pressure and symptom relief, reducing shoe and digital trauma. This note was created with the assistance of a speech recognition program. While intending to generate a timely document that accurately reflects the content of the visit, no guarantee can be provided that every grammatical or spelling mistake has been or will be identified or corrected. Thank you for your understanding. Antione Dyer DPM documented in this encounterSaint Mary's Health [id number] History of Present illness Narrative* Ruben Valentine, CAR SHAKEOUT OPERATOR-REFRIGERATOR ASSEMBLER - 01/13/2024 10:20 AM EDT Images from the original note were not included. [address] [place] [facility] [id number] SUBJECTIVE: Patient ID: La Nena Wang is a 43 y.o. male. Chief Complaint Patient presents with Hypertension ear flush La Nena is accompanied by his care provider today. Developmentally delayed. Resides at [facility]. Presents today for HTN follow up and bilateral ear cerumen impaction. Hypertension This is a chronic problem. The current episode started more than 1 year ago. The problem is controlled. Pertinent negatives include no chest pain, headaches, palpitations or shortness of breath. There are no associated agents to hypertension. Risk factors for coronary artery disease include family history. Past treatments include CARRI inhibitors. The current treatment provides significant improvement. The following portions of the patient's history were reviewed and updated as appropriate: allergies, current medications, past family history, past medical history, past social history, past surgicalhistory and problem list. Past Surgical History: Procedure Laterality Date SHUNT INSERTION Past Medical History: Diagnosis Date ADHD (attention deficit hyperactivity disorder) Cerebral palsy ([facility]) Diabetes mellitus ([facility]) Hydrocephalus ([facility]) Hypertension Immunization History Administered Date(s) Administered COVID-19, mRNA, LNP-S, PF, 100mcg/0.5mL Dose 04/04/2020, 05/02/2020 Influenza, Injectable, quadrivalent (PF) 12/04/2014, 12/17/2015, 01/02/2017, 01/01/2018, 01/30/2019, 01/27/2020, 01/03/2023 REVIEW OF SYSTEMS: Review of Systems Constitutional: Negative for chills, fatigue and fever. HENT: Negative for hearing loss and trouble swallowing. Cerumen impaction Eyes: Negative for pain and visual disturbance. Respiratory: Negative for cough, chest tightness and shortness of breath. Cardiovascular: Negative for chest pain, palpitations and leg swelling. Gastrointestinal: Negative for blood in stool. Endocrine: Negative for polydipsia, polyphagia and polyuria. Genitourinary: Negative for difficulty urinating, dysuria, flank pain, hematuria, scrotal swelling and testicular pain. Musculoskeletal: Negative. Skin: Negative. Allergic/Immunologic: Negative. Neurological: Negative for seizures, syncope and headaches. Hematological: Does not bruise/bleed easily. Psychiatric/Behavioral: Negative. PHYSICAL EXAMINATION: Vitals: 01/13/24 1034 BP: 100/70 BP Site: Left Arm BP Postition: Sitting Pulse: 97 Resp: 18 Temp: 36.4 C (97.5 F) TempSrc: Oral SpO2: 98% Weight: 92.8 kg (204 lb 9.6 oz) Height: 190.5 cm (6' 3 ) Patient noted to have elevated BMI and the following intervention(s) were applied: encouragement toexercise. Physical Exam Vitals and nursing note reviewed. Constitutional: General: He is not in acute distress. Appearance: He is well-developed. HENT: Head: Normocephalic and atraumatic. Right Ear: Tympanic membrane and external ear normal. Decreased hearing noted. There is impacted cerumen. Left Ear: Tympanic membrane and external ear normal. Decreased hearing noted. There is impacted cerumen. Nose: Nose normal. Mouth/Throat: Mouth: Mucous membranes are moist. Pharynx: No oropharyngeal exudate. Eyes: General: No scleral icterus. Right eye: No discharge. Left eye: No discharge. Conjunctiva/sclera: Conjunctivae normal. Pupils: Pupils are equal, round, and reactive to light. Neck: Vascular: No JVD. Cardiovascular: Rate and Rhythm: Normal rate and regular rhythm. Heart sounds: Normal heart sounds. No murmur heard. No friction rub. No gallop. Pulmonary: Effort: Pulmonary effort is normal. No respiratory distress. Breath sounds: Normal breath sounds. Chest: Chest wall: No tenderness. Abdominal: General: Bowel sounds are normal. There is no distension. Palpations: Abdomen is soft. There is no mass. Tenderness: There is no abdominal tenderness. There is no guarding or rebound. Hernia: No hernia is present. Musculoskeletal: General: No tenderness. Normal range of motion. Cervical back: Normal range of motion and neck supple. Lymphadenopathy: Cervical: No cervical adenopathy. Skin: General: Skin is warm and dry. Capillary Refill: Capillary refill takes less than 2 seconds. Findings: No rash. Neurological: Mental Status: He is alert and oriented to person, place, and time. Deep Tendon Reflexes: Reflexes are normal and symmetric. Psychiatric: Mood and Affect: Mood normal. Behavior: Behavior normal. Thought Content: Thought content normal. Judgment: Judgment normal. ASSESSMENT/PLAN: La Nena was seen today for hypertension and ear flush. Diagnoses and all orders for this visit: Bilateral impacted cerumen Primary hypertension HTN. Controlled. 100/70. Continue lisinopril 5 mg oral daily Bilateral ears irrigated with warm tepid water. Moderate amount of dark yellow cerumen manually removed with ear loop curette. Patient tolerated procedure well. Consider using debrox PRN as directed by transportation services representative. ALL QUESTIONS ANSWERED Total time spent was 30 minutes: Preparing to see the patient (e.g., review of tests) Obtaining and/or reviewing separately obtained history Performing a medically appropriate examination and/or evaluation Counseling and educating the patient/family/caregiver Ordering medications, tests, or procedures Follow-up: Medicare wellness SERGIO Leon 01/13/24 1106 documented in this encounterAdena [facility]10-[facility] Miscellaneous Notes* Telephone Encounter - Daisy Tsang - 01/08/2024 11:14 AM EDT Giorgi called and was wondering if you could send in amoxicillin and ativan for his dental work thathe's supposed to have next week * Telephone Encounter - SERGIO Leon - 01/08/2024 11:14 AM EDT I have addressed this documented in this encounterAdena [facility] Center10-16-2024 Telephone encounter Note* Telephone Encounter - Daisy Tsang - 01/08/2024 11:14 AM EDT Giorgi called and was wondering if you could send in amoxicillin and ativan for his dental work thathe's supposed to have next week [facility] Telephone encounter Note* Telephone Encounter - SERGIO Leon - 01/08/2024 11:14 AM EDT I have addressed this [facility]09-11-2024 Miscellaneous Notes* Telephone Encounter - Walter Zafar CMA - 12/04/2023 12:16 PM EDT Good morning, I had a question about our friend JR. Crane and I had discussed his bed wetting and she said if it continued that perhaps he should get referred to a urologist. He has been having a lot of bedwetting episodes so I was wondering if she would like to see him one more time or if we should just do the referral? Marissa Madrigal [facility] HospitalJul[facility] * Telephone Encounter - SERGIO Leon - 12/04/2023 12:16 PM EDT He did have a bad UTI when bedwetting was discussed. Question is- did the bedwetting improve after the UTI was treated last year or basically unchanged? * Telephone Encounter - Walter Zafar CMA - 12/04/2023 12:16 PM EDT Emailed Jacklyn * Telephone Encounter - Walter Zafar CMA - 12/04/2023 12:16 PM EDT I think he has had continuous issue with the wetting. I do feel like it's happening more often and multiple times per night now. * Telephone Encounter - SERGIO Leon - 12/04/2023 12:16 PM EDT Done. Referral to Dr Peralta. documented in this encounterAdena [facility] Center09-11-2024 Telephone encounter Note* Telephone Encounter - Walter Zafar CMA - 12/04/2023 12:16 PM EDT Good morning, I had a question about our friend JR. Crane and I had discussed his bed wetting and she said if it continued that perhaps he should get referred to a urologist. He has been having a lot of bedwetting episodes so I was wondering if she would like to see him one more time or if we should just do the referral? Marissa Madrigal [facility] Telephone encounter Note* Telephone Encounter - SERGIO Leon - 12/04/2023 12:16 PM EDT He did have a bad UTI when bedwetting was discussed. Question is- did the bedwetting improve after the UTI was treated last year or basically unchanged? [facility] Telephone encounter Note* Telephone Encounter - Walter Zafar CMA - 12/04/2023 12:16 PM EDT Emailed Jacklyn [facility]09-11-[facility] Telephone encounter Note* Telephone Encounter - Walter Zafar CMA - 12/04/2023 12:16 PM EDT I think he has had continuous issue with the wetting. I do feel like it's happening more often and multiple times per night now. [facility] Telephone encounter Note* Telephone Encounter - SERGIO Leon - 12/04/2023 12:16 PM EDT Done. Referral to Dr Peralta. [facility]08-29-[facility] History of Present illness Narrative* Alicja Morrow NP - 11/21/2023 9:40 AM EDT Images from the original note were not included. Chief Complaint Patient presents with Hydrocephalus Memory Loss PBA Subjective La Nena Wang, 43 y.o., male HPI La Nena is her for a f/u. Is accompanied by a critical care physician assistant. Per critical care physician assistant patient has not been c/o of head pain. summer child caregiver states that they have noticed a change in his memory. 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 Tends to be more forgetful, thinks this could also be selective. He will occasionally havehis staring episodes. He does seem nervous today. They deny any other concerns. . Patient is here today for follow-up of memory, behavior and hydrocephalus. I am following the plan of care established by Dr. Jordan the physician who is present in the office today and supervising patient care. Past Medical History: Diagnosis Date ADHD (CMS/HCC) Chronic constipation Dermatophytosis of nail History of medical problems rage RXN C Hydrocephalus (CMS/HCC) Memory loss Mental disability (CMS/HCC) mild, retardation Mood disorder (CMS/HCC) Obstructive hydrocephalus (CMS/HCC) PBA (pseudobulbar affect) Past Surgical History: Procedure Laterality Date VENTRICULOPERITONEAL SHUNT Family History Problem Relation Name Age of Onset Cancer Mother Social History Tobacco Use Smoking status: Never Smokeless tobacco: Never Substance Use Topics Alcohol use: Never Comment: Caffeine intake: none Allergies: Patient has no known allergies. General: No fever or chills HEENT: No nasal congestion or runny nose Pulmonary: No shortness of breath or cough Cardiovascular: No chest pain or palpitations GI: No nausea or vomiting : No dysuria or hematuria Musculoskeletal: No new aches or pains or muscle weakness Infectious: no recurrent fevers or infections Dermatologic: No rashes or skin lesions Neurologic: No new headaches or dizziness Vitals: 11/21/23 0944 BP: 126/84 Body mass index is 24.71 kg/m . weight: 203 lb Neurologic exam: General: Normal body habitus, cooperative, pleasant Mental status: Awake, alert to person, place, disoriented to time. Recent and remote memory are impaired Attention and concentration are decreased, difficulty following directions at times Fund of knowledge DD HEENT: NC/AT Cranial nerves: CN II: Visual mims full to confrontation. No loss of vision CN III, IV, : pupils equal round and reactive to light. Extraocular movements appear intact righteye, left eye not crossing midline, No ptosis present. CN V: Facial sensation is normal. CN VII: Full and symmetric facial movement. CN VIII: Hearing is normal CN IX and X: Palate elevates symmetrically. CN XI: Shoulder shrug is normal bilaterally. CN XII: Tongue is midline without atrophy or fasciculation. Speech: Short sentences, no aphasia or dysarthria Pronator drift: Negative bilateral upper extremity Coordination: Finger to nose dysmetria, decreased rapid alternating movements Sensory: Sensation is intact to light and vibratory touch throughout four extremities. 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 He has some memory loss and is on Namenda. 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 There is question if this is selective. He does remembers prior conversation we have had. He has PBA and his mood is stable on the Nudexta. No major outbursts. He has ADHD treated with Adderall but prescribed by his psych provider. He sees his psych provider monthly. He was having some spacey spells due to med changes that resolved. It was felt that this was due to olanzepine being increased too fast. We could order a routine EEG pending course. He is back to his occasional staring spells that are chronic for him. . He has a consult for urology as his incontinence has increased significantly in the night time. Dueto this and the memory concerns I do believe this warrants a CT head to look for any hydrocephalus. He continues living in a residential. He attends workshop several days/week to keep active and dayhab the other days. He has a minimal tremor that is stable and we will continue to monitor over time. . At one point he told psych that his head hurt. We did order a CT to evaluate shunt. This was completed 07/2022 and there was some mild ventricular dilatation and asymmetric atrophy on the left cerebellar hemishphere compared to the right. He denies any head pain now and CT has no concerns. . . . Plan CT head as noted for concerns Continue with urology consult for increased incontinence Monitor memory for continued worsening Is spells ( spacey ) comes back then we will order routine EEG monitor for any headaches continue the Namenda for memory loss continue Nuedexta for PBA we do not Rx the Adderall, this is by his psych provider brain exercises physical exercises monitor tremor call for any worsening. continue with dayhab and workshop This was discussed with the patient, all questions were answered and they agreed with the treatmentplan. The patient is to call with any worsening of the condition or new symptoms. Return to clinic: 3 months documented in this encounterSaint Mary's Health [id number] History of Present illness Narrative* Ruben Valentine, MAINOR-REFRIGERATOR ASSEMBLER - 10/10/2023 8:30 AM EDT Images from the original note were not included. [address] [place] [id number] SUBJECTIVE: Patient ID: La Nena Wang is a 43 y.o. male. Chief Complaint Patient presents with 6 month Patient is accompanied by care provider. Severe cognitive and intellectual delay Most care is completed by care providers. Resides at local residential, [facility]. Care provider relates he went to urgent care last month and was diagnosed with UTI. States he went to urgent care for several incontinence episodes along with behavior changes. She states behaviors have been at baseline but occassional (primarily at night) of urinary incontinence is still occurring. The following portions of the patient's history were reviewed and updated as appropriate: allergies, current medications, past family history, past medical history, past social history, past surgicalhistory and problem list. Past Surgical History: Procedure Laterality Date SHUNT INSERTION Past Medical History: Diagnosis Date ADHD (attention deficit hyperactivity disorder) Cerebral palsy ([facility]) Diabetes mellitus ([facility]) Hydrocephalus ([facility]) Hypertension Immunization History Administered Date(s) Administered COVID-19, mRNA, LNP-S, PF, 100mcg/0.5mL Dose 04/04/2020, 05/02/2020 Influenza, Injectable, quadrivalent (PF) 12/04/2014, 12/17/2015, 01/02/2017, 01/01/2018, 01/30/2019, 01/27/2020, 01/03/2023 REVIEW OF SYSTEMS: Review of Systems Reason unable to perform ROS: Care provider answers most questions due to cognative disability. Constitutional: Negative for chills, fatigue and fever. HENT: Negative for hearing loss and trouble swallowing. Eyes: Negative for pain and visual disturbance. Respiratory: Negative for cough, chest tightness and shortness of breath. Cardiovascular: Negative for chest pain, palpitations and leg swelling. Gastrointestinal: Negative for blood in stool. Endocrine: Negative for polydipsia, polyphagia and polyuria. Genitourinary: Negative for difficulty urinating, dysuria, flank pain, hematuria, scrotal swelling and testicular pain. Urinary incontinence and dribbling Musculoskeletal: Negative. Skin: Negative. Allergic/Immunologic: Negative. Neurological: Negative for seizures, syncope and headaches. Hematological: Does not bruise/bleed easily. Psychiatric/Behavioral: Negative. PHYSICAL EXAMINATION: Vitals: 10/10/23 0835 BP: 128/66 BP Site: Left Arm BP Postition: Sitting Pulse: 80 Resp: 20 Temp: 36 C (96.8 F) TempSrc: Temporal SpO2: 97% Weight: 93 kg (205 lb 1.6 oz) Height: 190.5 cm (6' 3 ) Patient noted to have elevated BMI and the following intervention(s) were applied: encouragement toexercise. Physical Exam Vitals and nursing note reviewed. Constitutional: General: He is not in acute distress. Appearance: He is well-developed. HENT: Head: Normocephalic and atraumatic. Right Ear: Tympanic membrane and external ear normal. Left Ear: Tympanic membrane and external ear normal. Nose: Nose normal. Mouth/Throat: Mouth: Mucous membranes are moist. Pharynx: No oropharyngeal exudate. Eyes: General: No scleral icterus. Right eye: No discharge. Left eye: No discharge. Conjunctiva/sclera: Conjunctivae normal. Pupils: Pupils are equal, round, and reactive to light. Neck: Vascular: No JVD. Cardiovascular: Rate and Rhythm: Normal rate and regular rhythm. Heart sounds: Normal heart sounds. No murmur heard. No friction rub. No gallop. Pulmonary: Effort: Pulmonary effort is normal. No respiratory distress. Breath sounds: Normal breath sounds. Chest: Chest wall: No tenderness. Abdominal: General: Bowel sounds are normal. There is no distension. Palpations: Abdomen is soft. There is no mass. Tenderness: There is no abdominal tenderness. There is no guarding or rebound. Hernia: No hernia is present. Musculoskeletal: General: No tenderness. Normal range of motion. Cervical back: Normal range of motion and neck supple. Lymphadenopathy: Cervical: No cervical adenopathy. Skin: General: Skin is warm and dry. Capillary Refill: Capillary refill takes less than 2 seconds. Findings: No rash. Neurological: Mental Status: He is alert. Mental status is at baseline. Deep Tendon Reflexes: Reflexes are normal and symmetric. Psychiatric: Mood and Affect: Mood normal. Behavior: Behavior normal. ASSESSMENT/PLAN: La Nena was seen today for 6 month. Diagnoses and all orders for this visit: Nocturnal enuresis - POCT urinalysis dipstick only Vitamin D deficiency - Vitamin D 25 hydroxy; Future Primary hypertension - CBC auto differential; Future - Comprehensive metabolic panel; Future - Thyroid profile includes TSH FT4; Future Mixed hyperlipidemia - Lipid panel; Future Pre-diabetes - Hemoglobin A1c; Future Acute cystitis without hematuria - CEPHalexin (KEFLEX) 500 mg capsule; Take 1 capsule (500 mg total) by mouth in the morning and 1 capsule (500 mg total) before bedtime. Do all this for 7 days. - Urine culture (clean catch); Future Benign prostatic hyperplasia with urinary frequency - tamsulosin (FLOMAX) 0.4 mg capsule; Take 1 capsule (0.4 mg total) by mouth nightly. At 8pm HTN Controlled 128/66 Continue lisinopril 2. Prediabetes Check A1c today 3. UTI Urine dip in office reveals 2+ leukocyte esterase Send urine for culture Start course of cephalexin as directed 4. BPH Start Flomax 0.4 mg oral daily 5.Mixed hyperlipidemia Check lipid panel Diet controlled 6. Vitamin D deficiency Check D level Continue D3 2,000 units oral daily ALL QUESTIONS ANSWERED Total time spent was 35 minutes: Preparing to see the patient (e.g., review of tests) Obtaining and/or reviewing separately obtained history Performing a medically appropriate examination and/or evaluation Counseling and educating the patient/family/caregiver Ordering medications, tests, or procedures Follow-up: 3 months HTN ear flushing. Extended visit. SERGIO Leon 10/10/23 1430 [facility] History of Present illness Narrative* SERGIO Leon - 05/13/2023 4:00 PM EST Images from the original note were not included. [address] [place] [id number] SUBJECTIVE: Patient ID: La Nena Wang is a 43 y.o. male. Chief Complaint Patient presents with Nocturnal Enuresis Frequent accidents Patient is accompanied by care provider. Is wetting the bed during the night, started approximately 3 months ago. Does not occur nightly, 2-3 times per week. The following portions of the patient's history were reviewed and updated as appropriate: allergies, current medications, past family history, past medical history, past social history, past surgicalhistory and problem list. Past Surgical History: Procedure Laterality Date SHUNT INSERTION Past Medical History: Diagnosis Date ADHD (attention deficit hyperactivity disorder) Cerebral palsy ([facility]) Diabetes mellitus (CMS-HCC) Hydrocephalus ([facility]) Hypertension Immunization History Administered Date(s) Administered COVID-19, mRNA, LNP-S, PF, 100mcg/0.5mL Dose 04/04/2020, 05/02/2020 Influenza, Injectable, quadrivalent (PF) 12/04/2014, 12/17/2015, 01/02/2017, 01/01/2018, 01/30/2019, 01/27/2020, 01/03/2023 REVIEW OF SYSTEMS: Review of Systems Constitutional: Negative for chills, fatigue and fever. HENT: Negative for hearing loss and trouble swallowing. Eyes: Negative for pain and visual disturbance. Respiratory: Negative for cough, chest tightness and shortness of breath. Cardiovascular: Negative for chest pain, palpitations and leg swelling. Gastrointestinal: Negative for blood in stool. Endocrine: Negative for polydipsia, polyphagia and polyuria. Genitourinary: Negative for difficulty urinating, dysuria, flank pain, hematuria, scrotal swelling and testicular pain. Urinary incontinence Musculoskeletal: Negative. Skin: Negative. Allergic/Immunologic: Negative. Neurological: Negative for seizures, syncope and headaches. Hematological: Does not bruise/bleed easily. Psychiatric/Behavioral: Negative. PHYSICAL EXAMINATION: Vitals: 05/13/23 1604 BP: (!) 140/100 BP Site: Left Arm BP Postition: Sitting Pulse: 113 Resp: 18 Temp: 36.4 C (97.6 F) TempSrc: Oral SpO2: 96% Weight: 94.5 kg (208 lb 6.4 oz) Height: 190.5 cm (6' 3 ) Patient noted to have elevated BMI and the following intervention(s) were applied: encouragement toexercise. Physical Exam Vitals and nursing note reviewed. Constitutional: General: He is not in acute distress. Appearance: He is well-developed. HENT: Head: Normocephalic and atraumatic. Right Ear: Tympanic membrane and external ear normal. Left Ear: Tympanic membrane and external ear normal. Nose: Nose normal. Mouth/Throat: Mouth: Mucous membranes are moist. Pharynx: No oropharyngeal exudate. Eyes: General: No scleral icterus. Right eye: No discharge. Left eye: No discharge. Conjunctiva/sclera: Conjunctivae normal. Pupils: Pupils are equal, round, and reactive to light. Neck: Vascular: No JVD. Cardiovascular: Rate and Rhythm: Normal rate and regular rhythm. Heart sounds: Normal heart sounds. No murmur heard. No friction rub. No gallop. Pulmonary: Effort: Pulmonary effort is normal. No respiratory distress. Breath sounds: Normal breath sounds. Chest: Chest wall: No tenderness. Abdominal: General: Bowel sounds are normal. There is no distension. Palpations: Abdomen is soft. There is no mass. Tenderness: There is no abdominal tenderness. There is no guarding or rebound. Hernia: No hernia is present. Musculoskeletal: General: No tenderness. Normal range of motion. Cervical back: Normal range of motion and neck supple. Lymphadenopathy: Cervical: No cervical adenopathy. Skin: General: Skin is warm and dry. Capillary Refill: Capillary refill takes less than 2 seconds. Findings: No rash. Neurological: Mental Status: He is alert and oriented to person, place, and time. Deep Tendon Reflexes: Reflexes are normal and symmetric. Psychiatric: Mood and Affect: Mood normal. Behavior: Behavior normal. Thought Content: Thought content normal. Judgment: Judgment normal. ASSESSMENT/PLAN: La Nena was seen today for nocturnal enuresis. Diagnoses and all orders for this visit: Acute cystitis without hematuria - Urine culture (clean catch); Future - sulfamethoxazole-trimethoprim (BACTRIM DS) 800-160 mg per tablet; Take 1 tablet by mouth in the morning and 1 tablet before bedtime. Do all this for 10 days. Take with food.. Nocturnal enuresis - POCT urinalysis dipstick only - Urine culture (clean catch); Future Intermittent urinary incontinence Urine dip reveals positive nitrates, small leukocyte esterase. Send urine for culture Start Bactrim DS as directed ALL QUESTIONS ANSWERED Total time spent was 25 minutes: Preparing to see the patient (e.g., review of tests) Obtaining and/or reviewing separately obtained history Performing a medically appropriate examination and/or evaluation Counseling and educating the patient/family/caregiver Ordering medications, tests, or procedures Follow-up: Next scheduled Sooner if needed SERGIO Leon 05/13/23 1639 documented in this encounterKindred HealthcareHotPads [facility] [id number] History of Present illness Narrative* SERGIO Leon - 04/18/2023 1:30 PM EST Images from the original note were not included. [address] [facility] [id number] SUBJECTIVE: Patient ID: La Nena Wang is a 43 y.o. male. Chief Complaint Patient presents with Ear Fullness Ear Fullness There is pain in the right ear. This is a chronic problem. The current episode started more than 1 month ago. The problem occurs constantly. There has been no fever. The pain is at a severity of 0/10. Associated symptoms include hearing loss. Pertinent negatives include no coughing or headaches. Treatments tried: DEBROX. The treatment provided no relief. The following portions of the patient's history were reviewed and updated as appropriate: allergies, current medications, past family history, past medical history, past social history, past surgicalhistory and problem list. Past Surgical History: Procedure Laterality Date SHUNT INSERTION Past Medical History: Diagnosis Date ADHD (attention deficit hyperactivity disorder) Cerebral palsy ([facility]) Diabetes mellitus ([facility]) Hydrocephalus ([facility]) Hypertension Immunization History Administered Date(s) Administered COVID-19, mRNA, LNP-S, PF, 100mcg/0.5mL Dose 04/04/2020, 05/02/2020 Influenza, Injectable, quadrivalent (PF) 12/04/2014, 12/17/2015, 01/02/2017, 01/01/2018, 01/30/2019, 01/27/2020, 01/03/2023 REVIEW OF SYSTEMS: Review of Systems Constitutional: Negative for chills, fatigue and fever. HENT: Positive for hearing loss. Negative for trouble swallowing. CERUMEN IMPACTION RIGHT EAR Eyes: Negative for pain and visual disturbance. Respiratory: Negative for cough, chest tightness and shortness of breath. Cardiovascular: Negative for chest pain, palpitations and leg swelling. Gastrointestinal: Negative for blood in stool. Endocrine: Negative for polydipsia, polyphagia and polyuria. Genitourinary: Negative for difficulty urinating, dysuria, flank pain, hematuria, scrotal swelling and testicular pain. Neurological: Negative for seizures, syncope and headaches. Hematological: Does not bruise/bleed easily. Psychiatric/Behavioral: Negative. PHYSICAL EXAMINATION: Vitals: 04/18/23 1334 BP: (!) 140/98 BP Site: Left Arm BP Postition: Sitting Pulse: 111 Temp: 37.5 C (99.5 F) TempSrc: Tympanic SpO2: 97% Weight: 94.1 kg (207 lb 6.4 oz) Height: 190.5 cm (6' 3 ) Patient noted to have elevated BMI and the following intervention(s) were applied: encouragement toexercise. Physical Exam Vitals and nursing note reviewed. Constitutional: General: He is not in acute distress. Appearance: He is well-developed. HENT: Head: Normocephalic and atraumatic. Right Ear: Tympanic membrane and external ear normal. There is impacted cerumen. Left Ear: Tympanic membrane and external ear normal. Nose: Nose normal. Mouth/Throat: Mouth: Mucous membranes are moist. Pharynx: No oropharyngeal exudate. Eyes: General: No scleral icterus. Right eye: No discharge. Left eye: No discharge. Conjunctiva/sclera: Conjunctivae normal. Pupils: Pupils are equal, round, and reactive to light. Neck: Vascular: No JVD. Cardiovascular: Rate and Rhythm: Normal rate and regular rhythm. Heart sounds: Normal heart sounds. No murmur heard. No friction rub. No gallop. Pulmonary: Effort: Pulmonary effort is normal. No respiratory distress. Breath sounds: Normal breath sounds. Chest: Chest wall: No tenderness. Abdominal: General: Bowel sounds are normal. There is no distension. Palpations: Abdomen is soft. There is no mass. Tenderness: There is no abdominal tenderness. There is no guarding or rebound. Hernia: No hernia is present. Musculoskeletal: General: No tenderness. Normal range of motion. Cervical back: Normal range of motion and neck supple. Lymphadenopathy: Cervical: No cervical adenopathy. Skin: General: Skin is warm and dry. Capillary Refill: Capillary refill takes less than 2 seconds. Findings: No rash. Neurological: Mental Status: He is alert and oriented to person, place, and time. Deep Tendon Reflexes: Reflexes are normal and symmetric. Psychiatric: Mood and Affect: Mood normal. Behavior: Behavior normal. Thought Content: Thought content normal. Judgment: Judgment normal. ASSESSMENT/PLAN: La Nena was seen today for ear fullness. Diagnoses and all orders for this visit: Impacted cerumen of right ear Right ear irrigated with warm tepid water. Very large amount of dark brown cerumen manually removedper ear loop curette. Patient tolerated procedure. ALL QUESTIONS ANSWERED Total time spent was 25 minutes: Preparing to see the patient (e.g., review of tests) Obtaining and/or reviewing separately obtained history Performing a medically appropriate examination and/or evaluation Counseling and educating the patient/family/caregiver Ordering medications, tests, or procedures Follow-up: Next scheduled Sooner if needed SERGIO Leon 04/18/23 1402 documented in this encounterA[facility]01-[facility] History of Present illness Narrative* SERGIO Leon - 04/11/2023 9:45 AM EST Subjective SUBJECTIVE: Patient ID: La Nena Wang is a 43 y.o. male who presents for a Medicare Annual Wellness exam. Presents for annual Medicare Wellness. He is accompanied by his care provider, Jacklyn, today. Resided in local [facility]. Intellectual and cognitive disability. All care, transportation, meal preparation, and medication administration completed per staff. He is also monitored by psychiatry. The following portions of the patient's history were reviewed and updated as appropriate: allergies, current medications, past family history, past medical history, past social history, past surgicalhistory and problem list. Past Surgical History: Procedure Laterality Date SHUNT INSERTION Past Medical History: Diagnosis Date ADHD (attention deficit hyperactivity disorder) Cerebral palsy ([facility]) Diabetes mellitus (CMS-HCC) Hydrocephalus ([facility]) Hypertension Immunization History Administered Date(s) Administered COVID-19, mRNA, LNP-S, PF, 100mcg/0.5mL Dose 04/04/2020, 05/02/2020 Influenza, Injectable, quadrivalent (PF) 12/04/2014, 12/17/2015, 01/02/2017, 01/01/2018, 01/30/2019, 01/27/2020, 01/03/2023 AWV FLOWSHEET : Lifestyle Assessment Do you smoke or use smokeless tobacco?: No If you smoke or use smokeless tobacco, are you ready to quit?: NA Are you exposed to secondhand smoke?: No On average, how many drinks of alcohol do you consume in a week?: None Do you exercise for 30 or more minutes on average at least 3 days a week?: Sometimes Do you have any tooth, denture, or oral problems?: No Do you snore or has anyone told you that you snore?: No Do you try to eat a balanced diet?: Yes Do you have difficulty performing any of these activities? (check all that apply): (!) Bathing, Grooming Do you have difficulty performing any of these activities? (check all that apply): (!) Laundry, Housekeeping, Preparing a meal, Shopping, Using transportation, Paying bills, Managing finances Fall Risk Depression Screening Little interest or pleasure in doing things: Not at all Feeling down, depressed, or hopeless: Not at all Trouble falling or staying asleep, or sleeping too much: Not at all Feeling tired or having little energy: Not at all Poor appetite or overeating: Not at all Feeling bad about yourself - or that you are a failure or have let yourself or your family down: Not at all Trouble concentrating on things, such as reading the newspaper or watching television: (!) Nearly every day Moving or speaking so slowly that other people could have noticed. Or the opposite - being so fidgety or restless that you have been moving around a lot more than usual: Not at all Thoughts that you would be better off , or of hurting yourself in some way: Not at all Patient has severe cognitive and intellectual disability Safety Assessment Do you have throw rugs on the floor?: No Do you feel safe at your home?: Yes Do you feel unsteady when walking?: No Are you having difficulty with driving?: N/A Do you have trouble seeing?: (!) Yes What assistive device do you use? (check all that apply): None Encourage yearly eye exams Hearing Assessment Do you strain or struggle to hear/understand conversations?: (!) Yes Do you have trouble hearing the television or radio when others do not?: No Does your family ever voice concerns about your hearing?: (!) Yes Do you wear hearing aid/s?: No Personal Health During the past 4 weeks, how would you rate your overall health?: Very Good Do you understand how to take all of your medications?: (!) No How confident are you that you can control and manage most of your health problems?: (!) Not very confident In the past 12 months, how many times have you been hospitalized?: None End of Life Planning Do you have a living will?: (!) No Do you have a durable power of environmental attorney?: (!) No Patient educated today about benefits of having a Living Will and DPOA. Information packet providedtoday. Cognitive Screening Do you have trouble remembering or recalling facts or events?: No Do family members or caregivers report that you have difficulty remembering things?: No Clock Drawing Test: Not Assessed Unable to complete clock and sentence assignment due to intellectual and cognitive disability REVIEW OF SYSTEMS: Review of Systems Reason unable to perform ROS: Caregiver completes ROS due to patient intellectual and cognative status. Constitutional: Negative for chills, fatigue and fever. HENT: Negative for hearing loss and trouble swallowing. Ear wax- difficulties hearing Eyes: Negative for pain and visual disturbance. Respiratory: Negative for cough, chest tightness and shortness of breath. Cardiovascular: Negative for chest pain, palpitations and leg swelling. Gastrointestinal: Negative for blood in stool. Endocrine: Negative for polydipsia, polyphagia and polyuria. Genitourinary: Negative for difficulty urinating, dysuria, flank pain, hematuria, scrotal swelling and testicular pain. Musculoskeletal: Negative. Skin: Negative. Allergic/Immunologic: Negative. Neurological: Negative for seizures, syncope and headaches. Hematological: Does not bruise/bleed easily. Psychiatric/Behavioral: At his normal baseline Objective PHYSICAL EXAMINATION: Vitals: 04/11/23 0942 BP: 140/90 BP Site: Left Arm BP Postition: Sitting Pulse: 96 Resp: 16 Temp: 36.2 C (97.1 F) TempSrc: Tympanic SpO2: 98% Weight: 94.5 kg (208 lb 4.8 oz) Height: 190.5 cm (6' 3 ) Patient noted to have elevated BMI and the following intervention(s) were applied: encouragement toexercise. Relevant Labs: No results found for: HGBA1C No results found for: MICROALBUR , URINECREAT , ALBCREATRA Lab Results Component Value Date TSH 1.27 09/27/2022 Lab Results Component Value Date VITD25 26.9 (L) 09/27/2022 Lab Results Component Value Date WBC 8.9 09/27/2022 RBCCOUNT 4.96 09/27/2022 HGB 14.7 09/27/2022 HCT 42.5 09/27/2022 MCV 86 09/27/2022 MCH 29.5 09/27/2022 MCHC 34.5 09/27/2022 RDW 13.5 09/27/2022 PLT ESTIMATE OF PLATELETS, DECREASED 09/27/2022 MPV PLATELET CLUMPS PRECLUDE COUNT 09/27/2022 No results found for: PSA Lab Results Component Value Date SODIUM 140 09/27/2022 K 4.1 09/27/2022 CL 105 09/27/2022 CO2 27 09/27/2022 ANIONGAP 8 09/27/2022 BUN 15 09/27/2022 GLU 102 (H) 09/27/2022 CALCIUM 9.7 09/27/2022 TOTALPROTEI 7.6 09/27/2022 ALBUMIN 4.6 09/27/2022 ALKPHOS 74 09/27/2022 AST 18 09/27/2022 ALT 20 09/27/2022 Imaging: No results found. Physical Exam Vitals and nursing note reviewed. Constitutional: General: He is not in acute distress. Appearance: He is well-developed. HENT: Head: Normocephalic and atraumatic. Right Ear: Tympanic membrane and external ear normal. Decreased hearing noted. There is impacted cerumen. Left Ear: Tympanic membrane and external ear normal. Nose: Nose normal. Mouth/Throat: Mouth: Mucous membranes are moist. Pharynx: No oropharyngeal exudate. Eyes: General: No scleral icterus. Right eye: No discharge. Left eye: No discharge. Conjunctiva/sclera: Conjunctivae normal. Pupils: Pupils are equal, round, and reactive to light. Neck: Vascular: No JVD. Cardiovascular: Rate and Rhythm: Normal rate and regular rhythm. Heart sounds: Normal heart sounds. No murmur heard. No friction rub. No gallop. Pulmonary: Effort: Pulmonary effort is normal. No respiratory distress. Breath sounds: Normal breath sounds. Chest: Chest wall: No tenderness. Abdominal: General: Bowel sounds are normal. There is no distension. Palpations: Abdomen is soft. There is no mass. Tenderness: There is no abdominal tenderness. There is no guarding or rebound. Hernia: No hernia is present. Musculoskeletal: General: No tenderness. Normal range of motion. Cervical back: Normal range of motion and neck supple. Lymphadenopathy: Cervical: No cervical adenopathy. Skin: General: Skin is warm and dry. Capillary Refill: Capillary refill takes less than 2 seconds. Findings: No rash. Neurological: Mental Status: He is alert. Mental status is at baseline. Deep Tendon Reflexes: Reflexes are normal and symmetric. Psychiatric: Mood and Affect: Mood normal. Behavior: Behavior normal. Assessment/Plan ASSESSMENT/PLAN La Nena was seen today for annual exam. Diagnoses and all orders for this visit: Medicare annual wellness visit, subsequent Right ear impacted cerumen Other cerebral palsy ([facility]) Other hydrocephalus ([facility]) Right ear cerumen impaction. Start Debrox ear wax removal drops. Apply 7 drops in right ear nightlyfor 7 nights. Return next week for ear irrigation / cerumen removal Up to date with influenza vaccine Last tdap vaccine recorded 2006. Recommend booster update Education regarding COVID booster, can be obtained at local pharmacy if wish to pursue. Hydrocephalus- monitored by [facility] neurology Cerebral palsy- resides in local residential where all ADLS are assisted, medication administration and meal prep is completed per staff Body mass index is 26.04 kg/m . Patient noted to have elevated BMI and the following intervention(s) were applied: Discussed current weight today. Consider healthy food choices, portion control. Avoid sugary beverages and high concentrated sweets. Routine exercise regimen encouraged. Total time spent was 35 minutes: Preparing to see the patient (e.g., review of tests) Obtaining and/or reviewing separately obtained history Performing a medically appropriate examination and/or evaluation Counseling and educating the patient/family/caregiver Ordering medications, tests, or procedures Return in about 6 months (around 10/10/2023). There are no Patient Instructions on file for this visit. SERGIO Leon 04/11/23 1247 documented in this encounterVermont Psychiatric Care Hospitalm0um0u [facility] [id number] NotePROCEDURE: XR CHEST 1 V DATE: 08/22/2022 12:19 PM CDT COMPARISONS: None. CLINICAL INDICATION: 42 years Male Hydrocephalus FINDINGS: The cardiomediastinal silhouette and pulmonary vasculature are within normal limits. The lungs are clear. There is no evidence of pleural effusion or pneumothorax. IMPRESSION: Chest radiograph is within normal limits. Electronically authenticated by: MICHELL PAREKH Date: 2022-08-22 14:16[facility] [id number] Evaluation + Plan note Diagnostic Tests Pending * Testosterone Level Total 08/21/22 [facility]10-04-2022 Evaluation note* Encounter Date Diagnosis Assessment Notes Treatment Notes Treatment Clinical Notes Dec, Chronic idiopathic constipation (ICD-10 - K59.04) Continue Linzess Recommended Miralax PRN Follow up in 1 year [facility] Other 09-06-2022 Evaluation note* Encounter Date Diagnosis Assessment Notes Treatment Notes Treatment Clinical Notes Nov, Constipation, unspecified consti pation type (ICD-10 - K59.00) [facility] Other 11-22-2021 NoteSurgical Attestation: I have reviewed the patient's History and Physical Examination. I have personally seen and evaluated the patient, repeating albright portions. There is no significant interval change. Surgery is still indicated. YES Consent reviewed and signed by patient/family: Yes Operative site verified and marked: site verified but not marked as not anatomically possible Roderick Esparza DDS 02/13/2021 7:10 AMThe [facility]11-16-2021 NotePresurgical Evaluation Jared Wang, [id number] 40 year old Male 02/08/2021 Height: Data Unavailable Weight: no weight BMI: (Data Unavailable) VITAL SIGNS: BP 120/70 Pulse 111 Temp 98.9 ???F (37.2 ???C) (Temporal) Resp 16 Ht 1.93 m (6' 4 ) Wt 101.5 kg (223 lb 12.3 oz) SpO2 97% BMI 27.24 kg/m??? ALLERGIES: No Known Allergies HISTORY OF PRESENT ILLNESS: Jared Wang is a 40 year old male pt who is seen here today for pre-surgical evaluation accompanied by his caregiver for DENTAL RESTORATIONS. He has a h/o Dental caries. Currently denies fever and chills, new cough, SOB or CP. He is scheduled for surgery w/ Dr. Juárez on 02/13/2021 RECENT ILLNESS: Serious illness or hospitalization within the last six months. No STOP-BANG Row Name Office Visit from 02/08/2021 in [facility] Pre [facility] Evaluation History of sleep apnea? No Snoring Yes Tired/Fatigued No Observed Apnea No Pressure: Hypertension Yes BMI greater than 35 0 Age greater than 50 0 Neck circ greater than 40cm (15.75 ) Yes Gender male? 1 Score 4 EXERCISE CAPACITY: 4-10 mets SOCIAL HISTORY: Social History Tobacco Use * Smoking status: Not on file * Smokeless tobacco: Not on file Substance Use Topics * Alcohol use: Not on file * Drug use: Not on file has no history on file for drug use. MEDICAL HISTORY: Past Medical History: Diagnosis Date * ADHD * Conduct disorder * Diabetes mellitus (HCC) * HTN (hypertension) * Intellectual disability * Intermittent explosive disorder * Mixed obsessional thoughts and acts * Obesity * Tachycardia SURGICAL HISTORY: Past Surgical History: Procedure Laterality Date * INSERTION PRINCIPLE SOFTWARE ENGINEER SHUNT PROBLEM LIST: Patient Active Problem List: Dental caries [K02.9] Tachycardia [R00.0] Mixed obsessional thoughts and acts [F42.2] Intermittent explosive disorder [F63.81] Intellectual disability [F79] HTN (hypertension) [I10] Diabetes mellitus (HCC) [E11.9] Conduct disorder [F91.9] ADHD [F90.9] Obesity [E66.9] FAMILY HISTORY: No family history on file. ANESTHESIA REVIEW OF SYSTEMS: Eyes/ENT: Eye Glasses Teeth: Broken Teeth and Dental caries Pulmonary: vaccinated Cardio-vascular: HTN, tachycardia G.I./ Hepatic: Negative Renal/: Negative Neurological: intellectual disability, CP s/p PRINCIPLE SOFTWARE ENGINEER shunt-follows with neurology at [facility] per note from [facility] stable last visit with no changes to medication Gynecological: N/A Psychiatric: ADHD, conduct disorder, intermittent explosive disorder Musculoskeletal: Negative Endocrine: DM2-controlled no meds Hematologic: Negative Constitutional: Negative Skin: intact PREVIOUS ANESTHETIC COMPLICATIONS: Anesthesia Complications Unknown FAMILY HISTORY OF ANESTHETIC COMPLICATIONS: Unknown PHYSICAL EXAM: Eyes: PERRL and EOM's intact ENT: Mucosa normal, Neck supple, Carotids normal pulse without bruits and Thyroid normal Pulmonary: Chest clear to auscultation bilaterally Cardiovascular: RRR with S1S2 and No murmurs, gallops, or rubs Abdomen: Soft and non-tender and Bowel sounds normal Extremities: No gross or obvious abnormalities Neurologic: Awake, alert, oriented, No motor deficits and Sensation grossly intact Psychiatric: alert and oriented to person, place and time, Appropriate mood/affect Skin: No gross or obvious abnormalities on visible skin AIRWAY EXAM: Mallampati score: 2 TMD: Adequate Neck Extension/ Flexion: Adequate Mouth Opening: Adequate Dentition: Teeth chipped Micrognathia/Overbite: No PAIN ASSESSMENT: Severity: 0 Location: N/A LABORATORY DATA: Type AND Screen None CBC and BMP at [facility] 10/2020 care everywhere WNL CBC (last 3 years, up to 5 values) None Basic Metabolic Panel None Basic Metabolic Panel None PT/PTT/INR (last 3 years, up to 5 values) None Arterial Blood Gases None No result for BNP LFT's (last 3 years, up to 5 values) None TESTS REVIEWED: CXRay: No Chest x-ray found EKG: Last ECG Date: Not Found ECHO: Last Echocardiogram: none found going back to 12/16/2020 No results found for this basename: LVEF Stress test date: Last StressTest: none found going back to 12/16/2020 CURRENT MEDICATION LIST: Current Outpatient Medications Medication Sig Dispense Refill * lisinopril (ZESTRIL) 5 MG tablet Take 5 mg by mouth daily. * Namenda XR 28 MG CP24 daily. * OLANZapine (ZyPREXA) 7.5 MG tablet Take 7.5 mg by mouth 2 times daily. * temazepam (RESTORIL) 30 MG capsule Take 30 mg by mouth at bedtime. * venlafaxine (EFFEXOR XR) 37.5 MG ER capsule Take 37.5 mg by mouth daily. * clonazePAM (KlonoPIN) 0.5 MG tablet Take 0.5 mg by mouth 2 times daily. * cloNIDine (CATAPRES) 0.1 MG tablet Take 0.1 mg by mouth 2 times daily. 1.5 tablets at bedtime * Nuedexta 20-10 MG CAPS capsule Take 1 Capsule by mouth 2 times daily. * Linzess 290 MCG CAPS capsule Take 290 mcg by mouth daily. No current facility-admin (more content not included)...[facility] Evaluation note* Diagnosis Onset Date Resolution Status UTI (urinary tract infection) [facility] Work Phone: Evaluation note* Diagnosis Dermatophytosis of nail- Primary Dystrophic nail Other specified disease of nail Pain around toenail, right foot Pain around toenail, left foot documented [facility] encounter [facility]* Diagnosis Hydrocephalus, unspecified type (CMS/HCC)- Primary Pseudobulbar affect Mood disorder (CMS/HCC) Unspecified episodic mood disorder Memory loss Attention deficit hyperactivity disorder (ADHD), unspecified ADHD type (CMS/HCC) documented [facility] encounter [facility]* Diagnosis Hydrocephalus, unspecified type (CMS/HCC)- Primary Pseudobulbar affect Mood disorder (CMS/HCC) Unspecified episodic mood disorder Memory loss documented in this encounter [facility]* Diagnosis Chronic idiopathic constipation Unspecified constipation [facility] Diagnosis Chronic idiopathic constipation Unspecified constipation [facility]* Diagnosis Enuresis- Primary [facility]* Diagnosis Medicare annual wellness visit, subsequent- Primary Mood disorder (CMS-HCC) Unspecified episodic mood disorder Other hydrocephalus (CMS-HCC) Other cerebral palsy (CMS-HCC) Special screening for malignant neoplasm of colon Special screening for malignant neoplasms, colon documented in this encounter [facility] SystemEvaluation note* Diagnosis Medicare annual wellness visit, subsequent- Primary Right ear impacted cerumen Impacted cerumen Other cerebral palsy (CMS-HCC) Other hydrocephalus ([facility]) documented in this encounter [facility] SystemEvaluation note* Diagnosis Impacted cerumen of right ear- Primary Impacted cerumen documented in this encounter [facility] SystemEvaluation note* Diagnosis Acute cystitis without hematuria- Primary Nocturnal enuresis [facility]* Diagnosis Acute cystitis without hematuria- Primary documented in this encounter [facility] SystemEvaluation note* Diagnosis Chronic idiopathic constipation Unspecified constipation documented in this encounter [facility] SystemEvaluation note* Diagnosis Acute cystitis without hematuria- Primary Nocturnal enuresis Vitamin D deficiency Primary hypertension Unspecified essential hypertension Mixed hyperlipidemia Pre-diabetes Other abnormal glucose Benign prostatic hyperplasia with urinary frequency documented in this encounter [facility] SystemEvaluation note* Diagnosis Vitamin D deficiency documented in this encounter [facility] SystemEvaluation note* Diagnosis Nocturnal enuresis- Primary Urinary incontinence, unspecified type documented in this encounter [facility] SystemEvaluation note* Diagnosis Test anxiety- Primary Phobia of dental procedure Need for antibiotic prophylaxis for dental procedure documented in this encounter [facility] SystemEvaluation note* Diagnosis Bilateral impacted cerumen- Primary Impacted cerumen Primary hypertension Unspecified essential hypertension documented in this encounter [facility] SystemEvaluation note* Diagnosis Enuresis- Primary Nocturnal enuresis Urinary incontinence, unspecified type documented in this encounter [facility] SystemEvaluation note* Diagnosis Dermatophytosis of nail- Primary Dystrophic nail Other specified disease of nail Pain around toenail, right foot Pain around toenail, left foot documented in this encounter [facility]* Diagnosis Enuresis- Primary documented in this encounter [facility] SystemEvaluation note* Diagnosis Enuresis- Primary Benign prostatic hyperplasia with urinary frequency documented in this encounter [facility] SystemEvaluation note* Diagnosis Enuresis- Primary Need for antibiotic prophylaxis for dental procedure- Primary Anxiety due to invasive procedure Intermittent explosive disorder Phobia of dental procedure documented in this encounter [facility] SystemEvaluation note* Diagnosis Dermatophytosis of nail- Primary Dystrophic nail Other specified disease of nail Pain around toenail, right foot Pain around toenail, left foot documented in this encounter [facility]* Diagnosis Enuresis- Primary Primary hypertension- Primary Unspecified essential hypertension Chronic idiopathic constipation Unspecified constipation [facility]* Diagnosis Enuresis- Primary Vitamin D deficiency documented in this encounter [facility] SystemEvaluation noteNo assessment information available [facility] Work Phone: Evaluation note* Diagnosis Enuresis- Primary Chronic idiopathic constipation Unspecified constipation documented [facility] this [facility]* Diagnosis Enuresis- Primary Enuresis- Primary documented in this [facility]* Diagnosis Enuresis- Primary Chronic idiopathic constipation Unspecified constipation documented in this [facility]* Diagnosis Enuresis- Primary Chronic idiopathic constipation Unspecified constipation documented in this [facility]* Diagnosis Enuresis- Primary Primary hypertension Unspecified essential hypertension documented in this [facility]* Diagnosis Enuresis- Primary Chronic idiopathic constipation Unspecified constipation documented in this encounter [facility] SystemHistory general Narrative - Reported* Type Description Date Medical History add Medical Historysevere mrMedical Historyglucose intoleranceMedical History cerebral palsyMedical Historybrain shuntMedical HistoryCHRONIC OBSTIPATION Medical HistoryDIABETES TYPE IISurgical Historybrain shunt [facility] Other Hospital course Narrative No data available for this section [facility] No data available for this section [facility] HospitalInstructionsNot on filedocumented in this encounter [facility] SystemInstructionsNot on filedocumented in this encounter [facility] SystemInstructionsNot on filedocumented in this encounter [facility] SystemInstructionsNot on filedocumented in this encounter [facility] SystemInstructions* Attachments The following attachments cannot be sent through Care Everywhere. * Lowering Your Risk of Colon Cancer ([facility]) * Yearly Physical for Adults (Uzbek) [facility]Inst[facility]* Attachments The following attachments cannot be sent through Care Everywhere. * Yearly Physical for Adults (Uzbek) [facility] SystemInstructions* Attachments The following attachments cannot be sent through Care Everywhere. * Ear Wax Impaction ED (Uzbek) documented in this [facility] SystemInstructions* Attachments The following attachments cannot be sent through Care Everywhere. * Acute Cystitis Discharge Instructions (Uzbek) [facility] SystemInstructionsNot on file documented in [facility] SystemInstructions* Attachments The following attachments cannot be sent through Care Everywhere. * Urinary Tract Infection, Adult ED (Uzbek) documented in this encounter[facility] SystemInstructionsNot on file documented in this encounter[facility] SystemInstructionsNot on file documented in this encounter[facility] SystemInstructions* Attachments The following attachments cannot be sent through Care Everywhere. * Ear wax impaction (Uzbek) documented in this encounterProBl[facility] SystemInstructionsNot on file documented in this encounter[facility] SystemInstructionsNot on file documented in this encounter[facility] SystemInstructionsNot on file documented in this encounterPro[facility] SystemInstructionsNot on file documented in this encounterUniversity [facility] SystemInstructions* Attachments The following attachments cannot be sent through Care Everywhere. * High blood pressure in adults (Uzbek) documented in this encounterPro[facility] SystemInstructionsNot on file documented in this encounterProReg[facility] SystemInstructionsNot on file documented in this encounterPro[facility] SystemInstructionsNot on file documented in this encounterUniversity [facility]als [facility] SystemProgress note No data available for this section [facility] for referral (narrative)* Consultation (Routine) - Pending ReviewSpecialtyDiagnoses / ProceduresReferred By Contact Referred To ContactUrology Diagnoses Nocturnal enuresis Urinary incontinence, unspecified type Ruben Valentine APRN-CNP [address] [place] [address] Brody Alexander MD [address] [place] [address] Referral IDStatusReasonStart DateExpiration DateVisits RequestedVisits [id number] Review Specialty Services Required [facility] for referral (narrative)No reason for referral information availableFirelands Regional Med Center Work Phone: Summary Purpose Family History Relationship Condition Age at Onset Recorded Date/T candido Not Specified Malignant neoplasm Unknown Relationship Condition Age at Onset Recorded Date/T candido mother Malignant neoplasm Unknown Advance Directives Advance Directive Response Recorded Date/ Time Advance Directives No September 10 4:20pm Chief Complaint and Reason for Visit Chief Complaint bed wetting Reason for Visit UTI (urinary tract i nfection) Reason for Referral SpecialtyDiagnoses / ProceduresReferred By ContactReferred To ContactRadiology Diagnoses Hydrocephalus, unspecified type (CMS/HCC) Memory loss Procedures CT head wo IV contrast Alicja Morrow NP [address] [place], [place] Referral IDStatusReasonStart DateExpiration DateVisits RequestedVisits [id number] Review/ Additional Source Comments (unrecognized sect ion and content) No Status Records FoundNo Status Records FoundNo Status Records FoundNo Status Records FoundNo Status Records FoundNo Status Records FoundNo Status Records FoundNo Status Records Found INFORMATION SOURCE (unrecogn ized section and content) DATE CREATED AUTHOR 04/25/2021 [facility] DATE CREATED AUTHOR AUTHOR'S ORGANIZ ATION 09/02/2022 [facility] DATE CREATED AUTHOR AUTHOR'S ORGANIZ ATION 09/02/2022 [facility] DATE CREATED AUTHOR AUTHOR'S ORGANIZ ATION 09/22/2023 [facility] DATE CREATED AUTHOR AUTHOR'S ORGANIZ ATION 10/14/2023 [facility] DATE CREATED AUTHOR AUTHOR'S ORGANIZ ATION 08/23/2024 [facility] DATE CREATED AUTHOR AUTHOR'S ORGANIZ ATION 10/05/2024 [facility] DATE CREATED AUTHOR AUTHOR'S ORGANIZ ATION 01/08/2025 [facility] REASON FOR VISIT (unrecogniz ed section and content) ReasonCommentsHydrocephalusMemory LossPBAReasonCommentsHydrocephalusReason CommentsMed RefillReasonCommentsFollow-upReasonCommentsAnnual ExamMedicareReason CommentsAnnual ExamReasonCommentsEar FullnessReasonCommentsNocturnal Enuresis Frequent accidentsReasonComments6 monthReasonCommentsHypertensionear flushReason CommentsNocturnal EnuresisSpecialtyDiagnoses / ProceduresReferred By Contact Referred To ContactUrology Diagnoses Nocturnal enuresis Urinary incontinence, unspecified type Ruben Valentine APRN-REFRIGERATOR ASSEMBLER [address] [place] [address] Phone: tel: fax: Brody Alexander MD [address] [place] [address] Phone: tel: fax: Referral IDStatusReasonStart DateExpiration DateVisits RequestedVisits [id number] Review Specialty Services Required /[id number] DateCommentsMed Shvjxp6106/26/2024ReasonComments Nail careJogrant Wang is a 44 y.o. male who presents for Nail care. Care support Juve is present.KoxdquSpppsvdaFkrdohfwsymn6fvdzb f/uReasonCommentsbowel changes-Constantly in the bowel shapesReasonOnset DateCommentsMed Refill 01/08/2025 Patient Care team informatio n (unrecognized section and content) Team Status: Active Member Role Status Dates Gela Isaac MD Primary Care Provider Active Team Status: Inactive Member Role Status Dates Gela Isaac MD Primary Care Provider Active S tart: September 11, 2023 End: September 10Gurpreet Morales ProviderActiveStart: September 11, 2023 End: September 11, 2023 Team Status: Inactive Member Role Status Dates Lena Benavides APRN Attending Provider Active S tart: September 11, 2023 End: September 11, 2023Team MemberRelationshipSpecialtyStart DateEnd Date Ruben Valentine CRNP [address] [place] [address] Referring PhysicianNurse Agshcmrmppci89/3/23Te MemberRelationshipSpecialty Start DateEnd Date Ruben Valentine CRNP [address] [place] [address] Referring PhysicianNurse Mjemetgqmevn69/3/23Te MemberRelationshipSpecialty Start DateEnd Date Ruben Valentine CRNP [address] [place] [address] Referring PhysicianNurse Mfqxwgyezjak88/3/23Te MemberRelationshipSpecialty Start DateEnd Date Ruben Valentine CRNP [address] [place] [address] Referring PhysicianNurse Dmyvftwuefbq74/3/23Te MemberRelationshipSpecialty Start DateEnd Date Unallocated, Noms ProviderMD [address] [place] [address] [facility] Vemdpkbx32/14/24 Ruben Valentine CRNP [address] [place] [address] Referring PhysicianNurse Ovsudlijslrk28/3/23 Walter Jordan DO [address] [place] [address] Referring DiqrzhvogZfrkmbpty95/23/24Te MemberRelationshipSpecialtyStart Date End Date Unallocated, Noms MD [address] [address] PCP - GeneralFamily Lgtveite78/14/24 Ruben Valentine CRNP [address] [place] [address] Referring PhysicianNurse Rwouwvtfwjdv38/3/23 Walter Jordan DO [address] [place] [address] Referring EnxmbvxpxIcjfavpxx28/23/24Team MemberRelationshipSpecialtyStart Date End Date Ruben Valentine, CAR SHAKEOUT OPERATOR-REFRIGERATOR ASSEMBLER [address] [place] [address] [facility] - [facility]Gr[facility] Medicine09/27/22Team MemberRelationshipSpecialtyStart DateEnd Date Ruben Valentine, CAR SHAKEOUT OPERATOR-REFRIGERATOR ASSEMBLER [address] [place] [address] [facility] - [facility] Medicine09/27/22Team MemberRelationshipSpecialtyStart DateEnd Date Ruben Valentine, CAR SHAKEOUT OPERATOR-REFRIGERATOR ASSEMBLER [address] [place] [address] PCP - Generalmi Medicine09/27/22Team MemberRelationshipSpecialtyStart DateEnd Date Ruben Valentine, CAR SHAKEOUT OPERATOR-REFRIGERATOR ASSEMBLER [address] [place] [address] PCP - Generalmi Medicine09/27/22Team MemberRelationshipSpecialtyStart DateEnd Date Ruben Valentine, CAR SHAKEOUT OPERATOR-REFRIGERATOR ASSEMBLER [address] [place] [address] PCP - GeneralFamily Medicine09/27/22Team MemberRelationshipSpecialtyStart DateEnd Date Ruben Valentine, CAR SHAKEOUT OPERATOR-[facility] [address] [place] [address] PCP - GeneralFamily Medicine09/27/22Team MemberRelationshipSpecialtyStart DateEnd Date Ruben Valentine, CAR SHAKEOUT OPERATOR-REFRIGERATOR ASSEMBLER [address] [place] [address] PCP - Generalmily Medicine09/27/22Team MemberRelationshipSpecialtyStart DateEnd Date Ruben Valentine, CAR SHAKEOUT OPERATOR-REFRIGERATOR ASSEMBLER [address] [place] [address] PCP - GeneralFamily Medicine09/27/22Team MemberRelationshipSpecialtyStart DateEnd Date Ruben Valentine, CAR SHAKEOUT OPERATOR-REFRIGERATOR ASSEMBLER [address] [place] [address] PCP - GeneralFamily Medicine09/27/22Team MemberRelationshipSpecialtyStart DateEnd Date Ruben Valentine, CAR SHAKEOUT OPERATOR-REFRIGERATOR ASSEMBLER [address] [place] [address] PCP - GeneralFamily Medicine09/27/22Team MemberRelationshipSpecialtyStart DateEnd Date Ruben Valentine, CAR SHAKEOUT OPERATOR-REFRIGERATOR ASSEMBLER [address] [place] [address] PCP - Generalmi Medicine09/27/22Team MemberRelationshipSpecialtyStart DateEnd Date Ruben Valentine, CAR SHAKEOUT OPERATOR-[facility] [facility] [address] [place] [address] PCP - [facility]09/27/22Team MemberRelationshipSpecialtyStart DateEnd Date Ruben Valentine, CAR SHAKEOUT OPERATOR-[facility] [address] [place] [address] PCP - [facility]09/27/22Team MemberRelationshipSpecialtyStart DateEnd Date Ruben Valentine, CAR SHAKEOUT OPERATOR-[facility] [address] [place] [address] PCP - [facility]09/27/22Team MemberRelationshipSpecialtyStart DateEnd Date Ruben Valentine, CAR SHAKEOUT OPERATOR-[facility] [address] [place] [address] PCP - [facility]09/27/22Team MemberRelationshipSpecialtyStart DateEnd Date Unallocated, Noms Christa, [address] [place] [address] [facility] - [facility]24 Ruben Valentine CRNP Referring PhysicianNResearch [facility]12/25/22 Walter Jordan DO [address] [place], [place] [id number] Referring RxznyngkrContexqqn25/23/24Team MemberRelationshipSpecialtyStart Date End Date Unallocated, Noms Christa, [address] [place] [address] PCP - GeneralFamily Xsxcrnid42/14/24 Ruben Valentine CRNP Referring PhysicianNurse Kmxqzsrnqqww54/3/23 Walter Jordan DO [address], [place] [id number] Referring PdhndecktMjfyfdmfz48/23/24Team MemberRelationshipSpecialtyStart Date End Date Ruben Valentine CAR SHAKEOUT OPERATOR-REFRIGERATOR ASSEMBLER [address] [place] [address] PCP - GeneralFamily Medicine09/27/22Team MemberRelationshipSpecialtyStart DateEnd Date Ruben Valentine CAR SHAKEOUT OPERATOR-REFRIGERATOR ASSEMBLER [address] [place] [address] PCP - GeneralFamily Medicine09/27/22Team MemberRelationshipSpecialtyStart DateEnd Date Ruben Valentine, CAR SHAKEOUT OPERATOR-REFRIGERATOR ASSEMBLER [address] [place] [address] PCP - GeneralFamily Medicine09/27/22Team MemberRelationshipSpecialtyStart DateEnd Date Ruben Valentine, CAR SHAKEOUT OPERATOR-REFRIGERATOR ASSEMBLER [address] 09/21/24 [place] [address] PCP - GeneralFamily Medicine09/27/22Team MemberRelationshipSpecialtyStart DateEnd Date Unallocated, Noms Provider, [address] [place] [address] PCP - GeneralFamily Zmlyhspp17/14/24 Ruben Valentine CRNP Referring PhysicianNurse Vyvygtttqaae97/3/23 Walter Jordan DO [address] [place] [address] Referring ZjirzjinyUihfrpfie86/23/24Team MemberRelationshipSpecialtyStart Date End Date Maria Teresa Del Rio, CAR SHAKEOUT OPERATOR-REFRIGERATOR ASSEMBLER [address] [place] [address] PCP - GeneralInternal Medicine10/13/24Team MemberRelationshipSpecialtyStart Date End Date Maria Teresa Del Rio, CAR SHAKEOUT OPERATOR-REFRIGERATOR ASSEMBLER [address] [place] [address] PCP - GeneralInternal Medicine10/13/24 Team Status: Active Member Role Status Dates Ruben Valentine NP-C Primary Care Provider Active Team Status: Inactive Member Role Status Dates Walter Jordan DO Attending Provider Active Sta rt: December 14, 2024 End: December 14, 2024Ruben Valentine NP-CPrformerly [facility]ry Care ProviderActive Start: December 14, 2024 End: December 14, 2024Team MemberRelationshipSpecialtyStart DateEnd Date Maria Teresa Del Rio, CAR SHAKEOUT OPERATOR-REFRIGERATOR ASSEMBLER [address] [place] [address] [facility] - [facility]10/13/24Te MemberRelationshipSpecialtyStart Date End Date Maria Teresa Del Rio [facility]NBR[facility] [address] [place] [address] [facility]10/13/24Te MemberRelationshipSpecialtyStart Date End Date Maria Teresa Del Rio, MAINORBRIGHAM [facility] WOMEN[facility] [address] [place] [address] [facility]10/13/24Te MemberRelationshipSpecialtyStart Date End Date Maria Teresa Del Rio [facility]NBR[facility] [address] [place] [address] [facility]10/13/24Te MemberRelationshipSpecialtyStart Date End Date Maria Teresa Del Rio, [facility] [address] [place] [address] [facility]10/13/24 Goals (unrecognized section and content) Goals may be documented in a n alternate section FOR RECORDS PERTAINING TO PATIENTS WHO ARE OR HAVE BEEN ENROLLED IN A CHEMICAL DEPENDENCY/SUBSTANCEABUSE PROGRAM, SOME INFORMATION MAY BE OMITTED. This clinical summary was aggregated from multiple sources. Caution should be exercised in using it in the provision of clinical care. This summary normalizes information from multiple sources, and as a consequence, information in this document may materially change the coding, format and clinical context of patient data. In addition, data may be omitted in some cases. CLINICAL DECISIONS SHOULD BE BASED ON THE PRIMARY CLINICAL RECORDS. [facility] [employer] [facility]. provides no warranty or guarantee of the accuracy or completeness of information in this document.
[2025-02-27 09:13] LABS: Hematocrit 43.8 % (42.0-54.0); Hemoglobin 15.1 g/dL (14.0-18.0); Immature Granulocytes Abs Auto 0.01 10^3/uL (0.00-0.03); Immature Granulocytes Pct Auto 0.1 % (0.0-0.5); Lymphocytes Absolute Auto 1.8 10^3/uL (1.2-3.8); Mean Corpuscular HGB Conc 34.5 g/dL (29.9-35.2); Mean Corpuscular Hemoglobin 29.8 pg (25.9-34.0); Mean Corpuscular Volume 86.6 fL (80.0-94.0); Platelet Count 189 10^3/uL (150-450); Red Blood Count 5.06 10^6/uL (4.70-6.10); White Blood Count 6.8 10^3/uL (4.0-11.0)
[2025-02-27 09:35] LABS: Anion Gap 11.0; Blood Urea Nitrogen 11.0 mg/dL (7.0-18.0); Calcium 9.2 mg/dL (8.5-10.1); Carbon Dioxide 30.2 mmol/L (21.0-32.0); Chloride 103 mmol/L (98-107); Cholesterol 145 mg/dL (<=200); Estimated GFR (African America >60 (>=60 mL/min/1.73m^2); Estimated GFR (Non-African Ame 59 (>=60 mL/min/1.73m^2); Glucose 114 mg/dL (74-106); HDL Cholesterol 45 mg/dL (40-60); Potassium 4.2 mmol/L (3.5-5.1); Sodium 140 mmol/L (136-145); Triglycerides 113 mg/dL (<=150); VLDL CHOLESTEROL 22.6 mg/dL
== END 2025-02-27 08:34 | disposition home or self-care (01) ==
LOC: LAB 08:37
PROVIDERS: PCP Nurse Practitioner Family; Visit Provider Nurse Practitioner
DX: F31.12 Bipolar disorder, current episode manic without psychotic features, moderate (principal); F42.2 Mixed obsessional thoughts and acts; F51.09 Other insomnia not due to a substance or known physiological condition; F63.81 Intermittent explosive disorder; F72 Severe intellectual disabilities; F90.1 Attention-deficit hyperactivity disorder, predominantly hyperactive type
CPT/HCPCS: 36415; 80048; 80061; 83036; 85025